=== PATIENT | female | born 1985 | race African-American/Black ===

== ENCOUNTER 2025-05-07 22:51 | Inpatient (IN) | payer OTHER, SELFPAY ==
[2025-05-07 17:55] VITALS: BP 155/110
[2025-05-07 18:33] LABS: Hematocrit 34.4 % (37.0-47.0); Hemoglobin 10.9 g/dL (12.0-16.0); Mean Corp Hgb Conc. 31.7 g/dL (33.0-37.0); Mean Corpuscular Volume 92.0 fL (81.0-99.0); Nucleated Red Blood Cells % 0 %; Platelet Count 346 10^3/uL (130-400); Red Cell Dist. Width 14.6 % (11.5-14.5)
[2025-05-07 18:59] LABS: HCG, Serum Qualitative Screen Negative
[2025-05-07 19:02] LABS: COVID-19 Antigen Negative (Negative)
[2025-05-07 19:06] LABS: ALT (SGPT) 13 U/L (0-35); AST (SGOT) 24 U/L (14-36); Albumin 3.8 g/dl (3.5-5.0); Alkaline Phosphatase 66 U/L (38-126); Blood Urea Nitrogen 42 mg/dl (7-17); Calcium 7.6 mg/dl (8.4-10.2); Carbon Dioxide 15 mmol/L (22-30); Chloride 108 mmol/L (98-107); Glucose 87 mg/dl (70-99); Potassium 4.6 mmol/L (3.5-5.1); Sodium 133 mmol/L (135-145); Total Protein 6.3 g/dl (6.3-8.2); eGFR 7.78
--- NOTE | 2025-05-07 20:17 | ED.GENMED ---
History of Present Illness
<Adela Corey SCALE OPERATOR - Last Filed: 05/08/25 00:35>
General
Chief Complaint: Breathing Problem
Source: patient
Exam Limitations: none
Time Seen by Provider: 05/07/25 20:15
Nursing documentation reviewed up to this point in time: agreed with
History of Present Illness
History of Present Illness:
40 yo female w /o HTN, ESRD on peritoneal dialysis, Lupus,presents with shortness of breath, cough, and persistent diarrhea worse than her usual chronic diarrhea due to her PD, leading to a weight loss of approximately five pounds. The onset of the
worsening diarrhea was reported to have started 04/25 the day before her cough and other symptoms started and occurs anytime she eats or drinks. Had fever 102.4 during the first two days of symptoms, with no recurrence since then. The patient also
experiences chest pain related to coughing, producing minimal sputum. She describes significant shortness of breath as particularly noticeable when walking, leading to severe dizziness to the point where she cannot stand or walk for long. Denies
abdominal pain. States her Creatinine is usually 'in the sixes' and she does PD 6 nights a week, skipping Sundays.
Past History
<Adela Corey, SCALE OPERATOR - Last Filed: 05/08/25 00:35>
Past History
ED Past Medical History: HTN, Renal failure (Peritoneal dialysis), Other (Lupus) and Other
Social History
Tobacco: Non-smoker
Alcohol: None
Personal:
Living: with family
Review of Systems
<Adela Corey, SCALE OPERATOR - Last Filed: 05/08/25 00:35>
Review of Systems
Allergies reviewed?: Yes
All Other Systems: ROS reviewed and negative except as documented in HPI and ROS
Constitutional: Denies fever
EENT: Denies sore throat
Respiratory: Reports cough and trouble breathing
Cardiac: Denies chest pain, diaphoresis, palpitations or syncope
ABD/GI: Reports nausea and diarrhea (loose stools, worse that usual ); Denies abdominal pain or vomiting
: Denies dysuria (does make some urine)
Musculoskeletal: Denies edema
Skin: Reports no symptoms
Neurological: Reports no symptoms
Phy Exam
<Adela Corey, SCALE OPERATOR - Last Filed: 05/08/25 00:35>
Physical Exam
Physical Exam:
GENERAL: No acute distress. A&Ox3.
CONSTITUTIONAL: Afebrile.
EYES: clear, conjunctivae normal
ENMT: moist mucus membranes, Pharynx nl
RESPIRATORY: Regular respirations, nonlabored, lungs clear.
CARDIOVASCULAR: Regular rate and rhythm, no murmurs, no rubs.
GI: Soft, nontender, normal BS
MUSCULOSKELETAL: Moves with ease. Well perfused.
SKIN: Warm, dry, normal
PSYCH: Normal mood and affect. Well kept, interactive and appropriate
NEUROLOGIC: Awake, alert and oriented. No focal neurological deficits
Course
<Adela Corey, SCALE OPERATOR - Last Filed: 05/08/25 00:35>
Orders/Labs/Results
Orders:
Orders
05/07/25 18:01
Electrocardiogram (*1) Urgent
Reason for Study: Shortness of Breath
EKG- Treatment ONCE
Test Result ONCE
CXR2 [CR Chest - 2 Views ] Urgent
Comment:
Reason For Exam: congestion
05/07/25 18:09
COVID-19 Antigen Urgent
Source: Nasal Swab
Complete Blood Count/With Diff Urgent
Comprehensive Metabolic Panel Urgent
HCG, Serum Qualitative Screen Urgent
Influenza A+B Rapid Molecular Urgent
CARA Source: Nasal Swab
Specimen Description:
05/07/25 20:46
D-Dimer Urgent
PTT Urgent
Comment: ADD ON
Acetaminophen [Tylenol] 1,000 mg PO NOW STA
05/07/25 22:25
Heparin 4,500 units IV NOW STA
Heparin Protocol- PTT Orders As Directed
PTT per Heparin protocol: -Obtain CBC and baseline PTT - if not already collected.
-Obtain PTT 6 hours from start of infusion. Then, every 6 hours until 2 consecutive
PTT's are therapeutic. Then, PTT Daily.
-With each rate change, obtain PTT every 6 hours until 2 consecutive PTT's are
therapeutic. Then, PTT Daily.
Notify MD As Directed
Notify physician if: PTT is greater than or equal to 200.
05/07/25 22:28
Admit/Transfer Patient As Directed
Co-Sign Provider:
Level of Care: Inpatient admission
Assign to:: Telemetry
Physician / Group: Tyson Meyer
Diagnosis: Shortness of Breath, suspected PE
Reason for Telemetry: Arrhythmia
Date to Stop Telemetry: 05/10/25
Time to Stop Telemetry: 11:00
Reason for Hospitalization: heparin drip, VQ scan
Expected length of stay greater than two midnights?: Yes
ELOS- Estimated Length of Stay in days: 3
I certify the patient meets the requirements for IP care: Yes
PRN Pain Medication Management As Directed
May give lesser potent ordered pain med per pt: Yes
preference::
Protocol:: Medication orders for pain may be administered in a
manner that supports deferring to patient preference
when the pt is:
- Requesting an ordered lesser potent pain medication.
Least to most potent pain medications are defined
as: acetaminophen < NSAID < tramadol < opioids
(morphine, oxycodone, hydromorphone).
- Requesting a lesser dose of the same medication IF
ORDERED.
- Requesting a less intrusive route of administration
if both routes are prescribed by the provider (PO <
IV).
05/07/25 22:29
Add On- LAB Urgent
Tests Added?: ptt
05/07/25 22:30
Code Status As Directed
Resuscitation Status: Full Code
Heparin 00103 Units/250 ml 25,000 units in 250 ml IV PER PROTOCOL
Weight to be used for heparin protocol in kilograms (kg):: 56
Protocol:: DVT/PE
PTT Goal Range to be used:: PTT 73 to 111 seconds
Order type:: Initial
INITIAL Infusion Dose (UNITS/KG/hr) & then follow protocol:: 18 units/kg/hr
Infusion Dose in UNITS/hr & then follow protocol (UNITS/hr):: 1,000
INFUSION RATE in mL/hr & then follow protocol (mL/hr):: 10
For DVT/PE algorithm, re-bolus for low PTT?: Yes
PTT less than or equal to 64 seconds:: Re-bolus 80 units/kg (max 10,000units). Increase by 200 units/hr
(+ 2mL/hr)
PTT 64.1 to 72.9 seconds:: Re-bolus 40 units/kg (max 5,000 units). Increase by 100 units/hr
(+ 1mL/hr)
PTT 73 to 111 seconds:: Target Range. No change in rate.
PTT 111.1 to 130.9 seconds:: Decrease rate by 100 units/hr (- 1 mL/hr)
PTT 131 to 199.9 seconds:: HOLD for 1 hr. Then decrease by 200 units/hr (- 2mL/hr)
PTT greater than or equal to 200 seconds:: HOLD for 2 hrs & Notify Provider. Then decrease by 200 units/hr
(- 2mL/hr)
Lab follow-up:: Each change, PTT q6h until 2 consecutive are therapeutic. Then
PTT daily.
05/07/25 22:38
Peripheral Venous Lwr Ext Bilat US [US Periph Venous LOWER Ext Louis] Urgent
Comment: patient unable to get CT scan
Reason For Exam: shortness of breath Hx PE
05/07/25 22:42
Peritoneal Dialysis As Directed
Use same dialysate for all exchanges or alternate dialysate?: Same for all exchanges
Deflex Low Ca/Low Mag for all exchanges % Dextrose:: 1.5% Dextrose
Volume in liters per exchange (liters):: 2
Exchange Dwell time in hours:: 4
05/08/25 02:00
Heparin 2,200 units IV PRN PRN
Heparin 4,500 units IV PRN PRN
05/09/25 06:00
Complete Blood Count/No Diff Q2D
Comment: Notify MD if platelet count is <130,000 or decreases by 50% from baseline
05/10/25 11:00
DC Protocol for Telemetry ONCE
05/11/25 06:00
Complete Blood Count/No Diff Q2D
Comment: Notify MD if platelet count is <130,000 or decreases by 50% from baseline
05/13/25 06:00
Complete Blood Count/No Diff Q2D
Comment: Notify MD if platelet count is <130,000 or decreases by 50% from baseline
05/15/25 06:00
Complete Blood Count/No Diff Q2D
Comment: Notify MD if platelet count is <130,000 or decreases by 50% from baseline
05/17/25 06:00
Complete Blood Count/No Diff Q2D
Comment: Notify MD if platelet count is <130,000 or decreases by 50% from baseline
05/19/25 06:00
Complete Blood Count/No Diff Q2D
Comment: Notify MD if platelet count is <130,000 or decreases by 50% from baseline
05/21/25 06:00
Complete Blood Count/No Diff Q2D
Comment: Notify MD if platelet count is <130,000 or decreases by 50% from baseline
05/23/25 06:00
Complete Blood Count/No Diff Q2D
Comment: Notify MD if platelet count is <130,000 or decreases by 50% from baseline
Abnormal Lab Results
05/07/25 05/07/25
18:09 20:46
WBC 3.8 L 10^3/uL
(4.8-10.8)
RBC 3.74 L 10^6/uL
(4.20-5.40)
Hgb 10.9 L g/dL
(12.0-16.0)
Hct 34.4 L %
(37.0-47.0)
MCHC 31.7 L g/dL
(33.0-37.0)
RDW 14.6 H %
(11.5-14.5)
Abs Immat Gran (auto) 0.2 H 10^3/uL
(0-0.05)
Absolute Lymphs (auto) 0.8 L 10^3/uL
(1.2-3.4)
Immature Gran % 4.5 H %
(0-0.5)
D-Dimer 0.84 H ug/mlFEU
(0.00-0.50)
Sodium 133 L mmol/L
(135-145)
Chloride 108 H mmol/L
(98-107)
Carbon Dioxide 15 L mmol/L
(22-30)
BUN 42 H mg/dl
(7-17)
Creatinine 6.5 H* mg/dL
(0.6-1.0)
Calcium 7.6 L mg/dl
(8.4-10.2)
05/07/25 22:25
05/07/25 18:09
Vital Signs
Initial and Last Documented VS:
Initial Vital Signs
Temp Pulse Resp BP Pulse Ox
98.0 F 87 16 155/110 99
05/07/25 17:55 05/07/25 17:55 05/07/25 17:55 05/07/25 17:55 05/07/25 17:55
Last Documented Vital Signs
Temp Pulse Resp BP Pulse Ox
98.0 F 82 15 150/108 100
05/07/25 17:55 05/08/25 00:15 05/08/25 00:15 05/07/25 22:38 05/08/25 00:00
Supervisor Audit Clerks consulted with Physician
Supervisor Audit Clerks consulted with physician?: Yes
Name of Physician Consulted: Sienna
<Yadiel El, DO - Last Filed: 05/07/25 22:37>
Orders/Labs/Results
Orders:
Orders
05/07/25 18:01
Electrocardiogram (*1) Urgent
Reason for Study: Shortness of Breath
EKG- Treatment ONCE
Test Result ONCE
CXR2 [CR Chest - 2 Views ] Urgent
Comment:
Reason For Exam: congestion
05/07/25 18:09
COVID-19 Antigen Urgent
Source: Nasal Swab
Complete Blood Count/With Diff Urgent
Comprehensive Metabolic Panel Urgent
HCG, Serum Qualitative Screen Urgent
Influenza A+B Rapid Molecular Urgent
CARA Source: Nasal Swab
Specimen Description:
05/07/25 20:46
D-Dimer Urgent
PTT Urgent
Comment: ADD ON
Acetaminophen [Tylenol] 1,000 mg PO NOW STA
05/07/25 22:25
Heparin 4,500 units IV NOW STA
Heparin Protocol- PTT Orders As Directed
PTT per Heparin protocol: -Obtain CBC and baseline PTT - if not already collected.
-Obtain PTT 6 hours from start of infusion. Then, every 6 hours until 2 consecutive
PTT's are therapeutic. Then, PTT Daily.
-With each rate change, obtain PTT every 6 hours until 2 consecutive PTT's are
therapeutic. Then, PTT Daily.
Notify MD As Directed
Notify physician if: PTT is greater than or equal to 200.
05/07/25 22:28
Admit/Transfer Patient As Directed
Co-Sign Provider:
Level of Care: Inpatient admission
Assign to:: Telemetry
Physician / Group: Tyson Meyer
Diagnosis: Shortness of Breath, suspected PE
Reason for Telemetry: Arrhythmia
Date to Stop Telemetry: 05/10/25
Time to Stop Telemetry: 11:00
Reason for Hospitalization: heparin drip, VQ scan
Expected length of stay greater than two midnights?: Yes
ELOS- Estimated Length of Stay in days: 3
I certify the patient meets the requirements for IP care: Yes
PRN Pain Medication Management As Directed
May give lesser potent ordered pain med per pt: Yes
preference::
Protocol:: Medication orders for pain may be administered in a
manner that supports deferring to patient preference
when the pt is:
- Requesting an ordered lesser potent pain medication.
Least to most potent pain medications are defined
as: acetaminophen < NSAID < tramadol < opioids
(morphine, oxycodone, hydromorphone).
- Requesting a lesser dose of the same medication IF
ORDERED.
- Requesting a less intrusive route of administration
if both routes are prescribed by the provider (PO <
IV).
05/07/25 22:29
Add On- LAB Urgent
Tests Added?: ptt
05/07/25 22:30
Code Status As Directed
Resuscitation Status: Full Code
Heparin 99762 Units/250 ml 25,000 units in 250 ml IV PER PROTOCOL
Weight to be used for heparin protocol in kilograms (kg):: 56
Protocol:: DVT/PE
PTT Goal Range to be used:: PTT 73 to 111 seconds
Order type:: Initial
INITIAL Infusion Dose (UNITS/KG/hr) & then follow protocol:: 18 units/kg/hr
Infusion Dose in UNITS/hr & then follow protocol (UNITS/hr):: 1,000
INFUSION RATE in mL/hr & then follow protocol (mL/hr):: 10
For DVT/PE algorithm, re-bolus for low PTT?: Yes
PTT less than or equal to 64 seconds:: Re-bolus 80 units/kg (max 10,000units). Increase by 200 units/hr
(+ 2mL/hr)
PTT 64.1 to 72.9 seconds:: Re-bolus 40 units/kg (max 5,000 units). Increase by 100 units/hr
(+ 1mL/hr)
PTT 73 to 111 seconds:: Target Range. No change in rate.
PTT 111.1 to 130.9 seconds:: Decrease rate by 100 units/hr (- 1 mL/hr)
PTT 131 to 199.9 seconds:: HOLD for 1 hr. Then decrease by 200 units/hr (- 2mL/hr)
PTT greater than or equal to 200 seconds:: HOLD for 2 hrs & Notify Provider. Then decrease by 200 units/hr
(- 2mL/hr)
Lab follow-up:: Each change, PTT q6h until 2 consecutive are therapeutic. Then
PTT daily.
05/07/25 22:38
Peripheral Venous Lwr Ext Bilat US [US Periph Venous LOWER Ext Louis] Urgent
Comment: patient unable to get CT scan
Reason For Exam: shortness of breath Hx PE
05/07/25 22:42
Peritoneal Dialysis As Directed
Use same dialysate for all exchanges or alternate dialysate?: Same for all exchanges
Deflex Low Ca/Low Mag for all exchanges % Dextrose:: 1.5% Dextrose
Volume in liters per exchange (liters):: 2
Exchange Dwell time in hours:: 4
05/08/25 02:00
Heparin 2,200 units IV PRN PRN
Heparin 4,500 units IV PRN PRN
05/09/25 06:00
Complete Blood Count/No Diff Q2D
Comment: Notify MD if platelet count is <130,000 or decreases by 50% from baseline
05/10/25 11:00
DC Protocol for Telemetry ONCE
05/11/25 06:00
Complete Blood Count/No Diff Q2D
Comment: Notify MD if platelet count is <130,000 or decreases by 50% from baseline
05/13/25 06:00
Complete Blood Count/No Diff Q2D
Comment: Notify MD if platelet count is <130,000 or decreases by 50% from baseline
05/15/25 06:00
Complete Blood Count/No Diff Q2D
Comment: Notify MD if platelet count is <130,000 or decreases by 50% from baseline
05/17/25 06:00
Complete Blood Count/No Diff Q2D
Comment: Notify MD if platelet count is <130,000 or decreases by 50% from baseline
05/19/25 06:00
Complete Blood Count/No Diff Q2D
Comment: Notify MD if platelet count is <130,000 or decreases by 50% from baseline
05/21/25 06:00
Complete Blood Count/No Diff Q2D
Comment: Notify MD if platelet count is <130,000 or decreases by 50% from baseline
05/23/25 06:00
Complete Blood Count/No Diff Q2D
Comment: Notify MD if platelet count is <130,000 or decreases by 50% from baseline
Abnormal Lab Results
05/07/25 05/07/25
18:09 20:46
WBC 3.8 L 10^3/uL
(4.8-10.8)
RBC 3.74 L 10^6/uL
(4.20-5.40)
Hgb 10.9 L g/dL
(12.0-16.0)
Hct 34.4 L %
(37.0-47.0)
MCHC 31.7 L g/dL
(33.0-37.0)
RDW 14.6 H %
(11.5-14.5)
Abs Immat Gran (auto) 0.2 H 10^3/uL
(0-0.05)
Absolute Lymphs (auto) 0.8 L 10^3/uL
(1.2-3.4)
Immature Gran % 4.5 H %
(0-0.5)
D-Dimer 0.84 H ug/mlFEU
(0.00-0.50)
Sodium 133 L mmol/L
(135-145)
Chloride 108 H mmol/L
(98-107)
Carbon Dioxide 15 L mmol/L
(22-30)
BUN 42 H mg/dl
(7-17)
Creatinine 6.5 H* mg/dL
(0.6-1.0)
Calcium 7.6 L mg/dl
(8.4-10.2)
05/07/25 22:25
05/07/25 18:09
Vital Signs
Initial and Last Documented VS:
Initial Vital Signs
Temp Pulse Resp BP Pulse Ox
98.0 F 87 16 155/110 99
05/07/25 17:55 05/07/25 17:55 05/07/25 17:55 05/07/25 17:55 05/07/25 17:55
Last Documented Vital Signs
Temp Pulse Resp BP Pulse Ox
98.0 F 82 15 150/108 100
05/07/25 17:55 05/08/25 00:15 05/08/25 00:15 05/07/25 22:38 05/08/25 00:00
<Adela Corey, SCALE OPERATOR - Last Filed: 05/08/25 00:35>
MDM/Problems Addressed
Differential Diagnosis Includes:
Pneumonia, PE, bronchitis, viral URI, dehydration
MDM/Problems Addressed:
40 yo female w /o HTN, Lupus nephritis, ESRD on peritoneal dialysis, presents with shortness of breath, cough, and persistent diarrhea worse than her usual chronic diarrhea due to her PD, leading to a weight loss of approximately five pounds. The
onset of the worsening diarrhea was reported to have started 04/25 the day before her cough and other symptoms started and occurs anytime she eats or drinks. Had fever 102.4 during the first two days of symptoms, with no recurrence since then. The
patient also experiences chest pain related to coughing, producing minimal sputum. She describes significant shortness of breath as particularly noticeable when walking, leading to severe dizziness to the point where she cannot stand or walk for
long. Denies abdominal pain. States her Creatinine is usually 'in the sixes' and she does PD 6 nights a week, skipping Sundays.
She has taken Nyquil, Tylenol cold and flu, Theraflu with some short term relief.
Afebrile, NAD
Road test, maintained Pulse ox of 95% RA but very breathless RR 35 HR 90's
CBC unremarkable
CMP: BUN/crea 426.5 (her baseline) Reviewed labs on her phone from 04/20: BUN creat: 35/6.33
HCG neg
Covid neg
Influenza neg
CXR read by Dr. El: NAD
9:30 p.m.
Mild elevation in dimer 0.[address] El
Plan: admit needs VQ scan
Hospitalist requesting contacting Nephrology to see if we can do PD tonight then CT PE study.
Dr. Macias consulted and recommends admit for VQ scan as PD won't clear contrast.
Hospitalist in to admit
Chronic conditions affecting care: Kidney disease and Other (Lupus)
<Adela Corey, SCALE OPERATOR - Last Filed: 05/08/25 00:35>
*Pulse Oximetry
SaO2: 99
Oxygen Mode of Delivery: Room air
Patient hypoxic: no
*Critical Care Note
Total Time (30-74mins, 75-104mins- exclusive of procedures): Not Applicable
ED Attending Note
<Adela Corey SCALE OPERATOR - Last Filed: 05/08/25 00:35>
-
Portions of this chart may have been created with voice recognition software.� Occasional wrong word or��sound alike� substitutions may have occurred due to the inherent limitations of voice recognition software.
<Yadiel El, - Last Filed: 05/07/25 22:37>
ED Attending Note
Patient seen and examined by attending physician: Yes
ED Attending Note:
I reviewed and agree with history and treatment plan by Lyla Corey DNP. My exam revealed 40-year-old female in no acute distress, but short of breath with any exertion. History of PE. She does state this feels different. No signs of pneumonia on
chest x-ray. Will admit to hospitalist for workup for possible PE, hospitalist to start patient on heparin.
Discharge Plan
Departure
Patient Disposition: Admit
Date of Disposition: 05/07/25
Time of Disposition: 21:30
Admit to: Med/Surg
Presentation/result/management discussed w/ accepting MD/DO: Hospitalist
Condition: Fair
Discharge Problem:
Dyspnea on exertion
Interventions
Interventions:
*Risk Screen - Suicide Last Done: 05/07/25 17:49
*General Assessment Last Done: 05/07/25 17:55
*Neglect/Abuse Screening Last Done: 05/07/25 17:55
*ED COVID-19 Vaccine History Last Done: 05/07/25 17:55
*ED Influenza Vaccine History Last Done: 05/07/25 17:55
[facility] Fall Risk Assessment Tool Last Done: 05/07/25 20:21
ED- Cardiac Assessment Last Done: 05/07/25 20:25
ED- Pulmonary Assessment Last Done: 05/07/25 20:25
[2025-05-07 20:26] VITALS: BP 150/108
[2025-05-07] MEDS: TYLENOL 1000 MG PO (20:46)
[2025-05-07 21:11] LABS: D-Dimer 0.84 ug/mlFEU (0.00-0.50)
--- NOTE | 2025-05-07 21:52 | HPS.HSE ---
Addendum entered and electronically signed by Tyson Meyer MD 05/07/25 23:27:
Acute shortness of breath with known pulmonary history
Was diagnosed with provoked PE most recent November and was on anticoagulation and was taken off
Check VQ scan
Will empirically heparinize
2D echo
Consult hematology
ESRD on peritoneal dialysis
Consult nephrology
Hypertension
Continue antihypertensives
Original Note:
Family Physician
-
Family Physician: Savi Marquez
Chief Complaint
-
Shortness of Breath
History of Present Illness
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 Patient reports initial onset of symptoms about 10 days ago. She reports initially she developed
diarrhea but subsequently has developed cough and shortness of breath. She notes she did have a fever for a two days at the onset of symptoms but notes fevers at this point have resolved. She reports pleuritic chest pain associated with minimally
productive cough. She reports significant shortness of breath, particularly dyspnea on exertion which leads to severe dizziness. Patient reports prior history of DVT in 2012 while taking oral contraceptive, and a PE in August 2024 related to a
hospitalization for pneumonia. Patient reports she completed a 3 month coarse of Eliquis and after discussion with her simulation specialist decision was made to stop anticoagulation as both episodes were felt to be provoked instead of transitioning to
warfarin which would be required for kidney transplant listing.
Medical History
Past Medical History
Past Medical History: Reports Other
Additional Past Medical History:
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
Pulmonary Embolism - August 2024
Hypertension
Past Surgical History: Reports Other
Additional Past Surgical History:
PD Catheter
Social History
Tobacco: Non-smoker
Personal:
Living: With Family
Family History
Family History: Not pertinent
Allergies / Home Medications
Allergies reflects when Allergies were last updated in [employer].
Home Medications with original date entered in [employer]
Allergy/Medication List:
Allergies
Allergy/AdvReac Type Severity Reaction Status Date / Time
infliximab (From Remicade) Allergy Anaphylaxis Verified 05/07/25 18:00
Penicillins Allergy Hives Verified 05/07/25 18:00
Home Medications
bumetanide 2 mg tablet 2 mg PO TID 05/07/25
carvedilol 6.25 mg tablet (Coreg) 6.25 mg PO BID 05/07/25
cholecalciferol (vitamin D3) 25 mcg (1,000 unit) tablet (Vitamin D3) 50 mcg PO DAILY 05/07/25
mycophenolate sodium 360 mg tablet,delayed release 360 mg PO BID 05/07/25
nifedipine 30 mg tablet,extended release 30 mg PO QPM 05/07/25
nifedipine 90 mg tablet,extended release 90 mg PO DAILY 05/07/25
potassium chloride 10 mEq tablet,extended release 10 meq PO DAILY 05/07/25
prednisone 5 mg tablet 5 mg PO DAILY 05/07/25
valsartan 80 mg tablet 80 mg PO HS 05/07/25
vitamin B complex-vitamin C-folic acid 0.8 mg tablet (Opal-Greg) 1 tab PO DAILY 05/07/25
Review of Systems
-
A 12 point ROS was completed and negative except as noted: Yes
Constitutional: Reports Fever (Resolved)
Respiratory: Reports See HPI
Abdomen/GI: Denies Abdominal Pain
Physical Exam
Vital Signs
Vital Signs
Temp Pulse Resp BP Pulse Ox
98.0 F 80 15 150/108 98
05/07/25 17:55 05/07/25 20:26 05/07/25 20:26 05/07/25 20:26 05/07/25 20:27
Physical Exam
General: Comfortable and Conversant
HEENT: Anicteric and Moist mucous membranes
Respiratory: Clear and Non Labored Respirations
Cardiac: S1/S2 and Regular Rhythm
GI: Soft and Non Tender
Musculoskeletal: No Clubbing, No Cyanosis and No Edema
Skin: Warm and Dry
Neuro: Awake, Alert, Oriented and Nonfocal/grossly intact
Psych: Calm
Laboratory Results
-
05/07/25 18:09
05/07/25 18:09
Laboratory Results
Total Bilirubin 0.4 mg/dl (0.2-1.3) 05/07/25 18:09
AST 24 U/L (14-36) 05/07/25 18:09
ALT 13 U/L (0-35) 05/07/25 18:09
Alkaline Phosphatase 66 U/L (38-126) 05/07/25 18:09
Lung Perfusion Scan - August 2024 @ [facility]
Perfusion images demonstrate a medium-sized wedge-shaped perfusion defect extending to the periphery in the left upper lobe, most consistent with acute pulmonary embolus. There is otherwise mildly heterogeneous tracer distribution throughout the
remainder of both lungs.
Data Reviewed
-
Diagnostic Radiology: Image Personally Visualized and interpreted (CXR without evidence of pneumonia or volume overload)
Lab Data: Labs Reviewed by me
Old Records: Reviewed
Impression/Plan
-
Shortness of Breath / Dyspnea on Exertion, high clinical concern for Pulmonary Embolism given her prior history
-Patient is unable to have CT scan due to ESRD on PD
-Check peripheral vacular ultrasound to evaluated for possible DVT
-Check echocardiogram for evidence of right heart strain that may indicate new pulmonary embolism as prior Echo from August did not demonstrate right heart strain
-Check VQ scan
-Lung Perfusion Scan from August with medium sized wedge shaped perfusion defect extending to the periphery in the left upper lobe
-Start heparin drip given high clinical concern
-Consult Hematology
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
-Consult Nephrology
-Continue Bumex for volume management
-Continue mycophenolate and prednisone
Benign Hypertension
-Continue Coreg and Nifedipine
Code Status: Full Code
--- NOTE | 2025-05-07 21:54 | EDRN ---
WAGNER Arita updated patient, she will be admitted to the hospital
[2025-05-07 22:37] LABS: APTT 29.7 Sec (23.4-35.0)
[2025-05-07] MEDS: HEPARIN 4500 UNITS IV (22:37)
[2025-05-07 22:38] VITALS: BP 150/108
[2025-05-07] MEDS: HEPARIN 25000 UNITS/250 ML IV (22:38)
[2025-05-08] VITALS (17 sets, daily range): BP systolic 141–172; BP diastolic 104–125; BMI 19.0
[2025-05-08] MEDS: DIOVAN 80 MG PO ×2 (02:22→22:58)
[2025-05-08] MEDS: TYLENOL 1000 MG PO (02:33)
[2025-05-08] MEDS: COLACE 100 MG PO ×3 (02:33→20:42)
--- NOTE | 2025-05-08 02:47 | PTCARENOTE ---
Verbal report received from RENITA Vann. Pt arrived to floor via stretcher. Pt aaox3 and ambulated to the bed with a steady gait. NSR on the monitor. SpO2 100% on RA. Heparin gtt infusing at 1000u/hr. Next PTT at 0430. PD dialysate currently in the
warmer. PD dressing C/D/I. Pt's bp 162/111, hr 66. Pt stated she did not take her blood pressure medications this evening. Pt also c/o 6/10 abd pain and requested 1000 mg of Tylenol as this is the medication/dose she takes as needed for abdominal
pain. She also requested Colace as well which she takes prior to PD to help with discomfort. GLASS TUBE BENDER made aware and medications ordered and administered (see MAR). VS and assessment as documented. Admission complete. Pt is currently resting in bed with
call jimenez in reach.
[2025-05-08 05:25] LABS: Hematocrit 30.7 % (37.0-47.0); Hemoglobin 9.8 g/dL (12.0-16.0); Mean Corp Hgb Conc. 31.9 g/dL (33.0-37.0); Mean Corpuscular Volume 91.6 fL (81.0-99.0); Platelet Count 312 10^3/uL (130-400); Red Cell Dist. Width 14.3 % (11.5-14.5)
[2025-05-08 05:59] LABS: APTT > 200 Sec (23.4-35.0)
[2025-05-08 06:06] LABS: Blood Urea Nitrogen 49 mg/dl (7-17); Calcium 8.0 mg/dl (8.4-10.2); Carbon Dioxide 14 mmol/L (22-30); Chloride 113 mmol/L (98-107); Estimated Creatinine Clearance 10 ml/min; Glucose 80 mg/dl (70-99); Potassium 4.0 mmol/L (3.5-5.1); Sodium 137 mmol/L (135-145); eGFR 7.92
[2025-05-08] MEDS: APRESOLINE 5 MG IV ×3 (06:36→23:56)
--- NOTE | 2025-05-08 07:48 | PTCARENOTE ---
Addendum entered by Maira Ruiz RN 05/09/25 02:03:
0525 Pt c/o 7/10 pain during PD and PLAYERS ASSISTANT notified. rx received for oxycodone. Pt refused and PLAYERS ASSISTANT made aware
Original Note:
0115
Pt bp 162/111, hr 66. Rx recieved for coreg and valsartan, hr dropped to 50s. PLAYERS ASSISTANT notified, coreg held and valsartan administered. Pt requested colace for prior to PD.
0225
Pt c/o 6/10 abdominal pain. Rx received for Tylenol per pt request.
0525
Pt c/o 7/10 pain during PD and PLAYERS ASSISTANT notified. No new orders
0600
PTT >200 PLAYERS ASSISTANT notified and heparin gtt on hold
BP 172/114, hr 54. Rx received for IV Hydralazine.
CO2 14 this am and PLAYERS ASSISTANT and on-call hydraulic and plumbing installer made aware
--- NOTE | 2025-05-08 08:07 | W.CON.NEPH ---
Consultation
-
Date/Time Consultation Requested: 05/07/2025 10:00 PM
Date/Time Consultation Performed: 05/08/2025 8:00 AM
Requesting Provider: Dr. Meyer
Performing Provider: Dr. Macias
Reason for Consultation: End-stage renal disease
Medical History
-
Chief Complaint: End-stage renal disease
History of Present Illness:
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 Patient reports initial onset of symptoms about 10 days ago. She reports initially she developed
diarrhea but subsequently has developed cough and shortness of breath. She notes she did have a fever for a two days at the onset of symptoms but notes fevers at this point have resolved. She reports pleuritic chest pain associated with minimally
productive cough. She reports significant shortness of breath, particularly dyspnea on exertion which leads to severe dizziness. Patient reports prior history of DVT in 2012 while taking oral contraceptive, and a PE in August 2024 related to a
hospitalization for pneumonia. Patient reports she completed a 3 month coarse of Eliquis and after discussion with her insecticide maker decision was made to stop anticoagulation as both episodes were felt to be provoked instead of transitioning to
warfarin which would be required for kidney transplant listing. Nephrology was consulted for end-stage renal disease management and metabolic acidosis. Patient's admission was suspected for recurrence of pulmonary embolism.
Past Medical History
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
Pulmonary Embolism - August 2024
Hypertension
Social History
Tobacco: Non-Smoker
Personal:
Allergies / Home Medications
Allergy/AdvReac Type Severity Reaction Status Date / Time
infliximab (From Remicade) Allergy Anaphylaxis Verified 05/07/25 18:00
Penicillins Allergy Hives Verified 05/07/25 18:00
�Medication �Instructions �Recorded �Confirmed �Type
bumetanide 2 mg tablet 2 mg PO TID 05/07/25 05/07/25 History
carvedilol 6.25 mg tablet (Coreg) 6.25 mg PO BID 05/07/25 05/07/25 History
cholecalciferol (vitamin D3) 25 50 mcg PO DAILY 05/07/25 05/07/25 History
mcg (1,000 unit) tablet (Vitamin
D3)
mycophenolate sodium 360 mg 360 mg PO BID 05/07/25 05/07/25 History
tablet,delayed release
nifedipine 30 mg tablet,extended 30 mg PO QPM 05/07/25 05/08/25 History
release
nifedipine 90 mg tablet,extended 90 mg PO DAILY 05/07/25 05/08/25 History
release
potassium chloride 10 mEq 10 meq PO DAILY 05/07/25 05/07/25 History
tablet,extended release
prednisone 5 mg tablet 5 mg PO DAILY 05/07/25 05/07/25 History
valsartan 80 mg tablet 80 mg PO HS 05/07/25 05/07/25 History
vitamin B complex-vitamin C-folic 1 tab PO DAILY 05/07/25 05/07/25 History
acid 0.8 mg tablet (Opal-Greg)
nifedipine 30 mg tablet,extended 30 mg PO DAILY 05/08/25 05/08/25 History
release
Review of Systems
-
History Source: Patient
All other systems: Negative unless noted
Constitutional: Weight Loss
EENT: No Symptoms
Respiratory: Cough and Trouble Breathing
Cardiac: No Symptoms
Abdomen/GI: Abdominal Pain and Diarrhea
: Other (still makes urine)
Musculoskeletal: No Symptoms
Skin: No Symptoms
Neurological: No Symptoms
Endocrine: No Symptoms
Hematologic/Lymphatic: No Symptoms
Physical Exam
Vital Signs
Vital Signs
Temp Pulse Resp BP Pulse Ox
97.7 F 107 20 147/109 100
05/08/25 08:03 05/08/25 08:00 05/08/25 05:43 05/08/25 07:29 05/08/25 08:00
Lab Results
05/08/25 04:44
05/08/25 04:44
WBC 3.9 10^3/uL (4.8-10.8) L 05/08/25 04:44
RBC 3.35 10^6/uL (4.20-5.40) L 05/08/25 04:44
Hgb 9.8 g/dL (12.0-16.0) L 05/08/25 04:44
Hct 30.7 % (37.0-47.0) L 05/08/25 04:44
Plt Count 312 10^3/uL (130-400) 05/08/25 04:44
Sodium 137 mmol/L (135-145) 05/08/25 04:44
Potassium 4.0 mmol/L (3.5-5.1) 05/08/25 04:44
Chloride 113 mmol/L (98-107) H 05/08/25 04:44
Carbon Dioxide 14 mmol/L (22-30) L* 05/08/25 04:44
BUN 49 mg/dl (7-17) H 05/08/25 04:44
Creatinine 6.4 mg/dL (0.6-1.0) H* 05/08/25 04:44
eGFR 7.92 05/08/25 04:44
Glucose 80 mg/dl (70-99) 05/08/25 04:44
Calcium 8.0 mg/dl (8.4-10.2) L 05/08/25 04:44
Albumin 3.8 g/dl (3.5-5.0) 05/07/25 18:09
Physical Exam
General: AOx3, Nontoxic , NAD
HEENT: PERRL, EOMI, Anicteric, Conjunctivae Clear, Ear/Nose Intact, Hearing Normal, Oropharynx Clear/Moist, Dentition Intact, Facial Symmetry, Neck Supple, Neck: Trachea Midline, No JVD and No Thyromegaly, no Bruits
Respiratory: Clear to auscultation bilaterally with normal lung exersion
Cardiac: S1/S2 and Regular Rate/Rhythm
Breast: Deferred by me
Abdomen: Soft, but tender, Normal Bowel Sounds and No Hepatosplenomegaly,PD catheter
Rectal: Deferred by Provider
Genito-urinary: No Costovertebral Tenderness
Extremities: No Clubbing, No Cyanosis and No Edema
Skin: No Rash or open lesions
Neuro: Nonfocal/Grossly Intact, CN II-XII (Intact) and Strength (Musculoskeletal exam 5 out of 5 both upper and lower extremities)
Hematologic/Lymphatic: No Cervical Lymphadenopathy, No Submandibular Lymphadenopathy and No Supraclavicular Lymphadenopathy
Psych: Mood/afflect pleasant, Insight/judgement good and Appropriate
Vascular: plus 2 pedal and radial pulses
Data Reviewed
-
Radiology: Image Personally Visualized and interpreted (Reviewed by myself no evidence of congestive heart failure or pneumonic process)
Labs: Labs Reviewed by me (BMP CBC)
Assessment/Plan
-
Impression:
ESRD (Lupus nephritis)/PD
Presentation with shortness of breath dyspnea on exertion
Hypertension
History of PE (patient had this last August and was on Eliquis for 3 months)
Anemia
Metabolic acidosis
Plan:
PD orders were provided, 2L q4hr exchange (May need to decrease interval to every 5 hours as we do not wish to potentiate further volume depletion)
Check VBG to help evaluate metabolic acidosis
Maintains on prednisone and mycophenolate in setting of lupus nephritis
Will check PD fluid for culture and Gram stain and cell count given ongoing diarrhea and abdominal pain
Likely for VQ scan and echo today to evaluate for possible acute PE
Currently heparinized
[2025-05-08] MEDS: MYFORTIC DELAYED REL. 360 MG PO ×2 (08:16→20:43)
[2025-05-08] MEDS: BUMEX PO ×2 (08:16→08:30)
[2025-05-08] MEDS: NEPHROCAP 1 CAPSULE PO (08:17)
[2025-05-08] MEDS: DELTASONE 5 MG PO (08:17)
[2025-05-08] MEDS: KCL 10 MEQ PO (08:17)
[2025-05-08] MEDS: COREG 6.25 MG PO ×2 (08:19→20:43)
[2025-05-08] MEDS: TYLENOL 650 MG PO ×3 (09:07→20:42)
[2025-05-08 09:25] LABS: Venous Blood Gas B.E. -8.9 mmol/L (-4 to +4); Venous Blood Gas O2 Sat % 99.3 %
--- NOTE | 2025-05-08 10:40 | CON.ONC ---
Addendum entered and electronically signed by James Major MD 05/08/25 13:11:
Addendum: While in the past several years, this hospital has done perfusion only studies, they are once again doing both perfusion and ventilation studies for pulmonary embolus. Therefore, the study is more believable than a perfusion study alone.
I am told, but do not know for a fact, that the perfusion and ventilation study done here was similar to 1 done at the [facility]. Will await all of the dust to clear.
Original Note:
Consultation
-
Date Consultation Requested: 05/08/25
Date Consultation Performed: 06/06/25
Requesting Provider: Jonathan
Performing Provider: Moriah
Reason for Consultation: possible PE
Impression
Impression
History of thromboembolic disease, concern for possible acute PE, perfusion scan pending
ESRD due to lupus nephritis, on peritoneal dialysis, plans for kidney transplant
Plan
Plan
Await results of perfusion scan. Please note, this is not a VQ scan, it is only a Q scan, perfusion only and as such is more likely to yield false positives. She may require a CT scan with IV contrast if okay with renal. I have sent off studies
to exclude phospholipid antibody syndrome, for which she has an increased risk given her lupus. Agree with plans for empiric heparin for the time being.
Patient History
History of Present Illness
This 40-year-old woman was admitted with breathing difficulties. She has not been feeling well since . She has experienced about 1 week of mild to moderate diarrhea. She noted increased shortness of breath over the last several days,
only when she was walking or exerting herself. She has some mild pleuritic pain that is nonlocalized. She was running a fever a little over 1 week ago. She has been admitted and has undergone a venous Doppler which shows no evidence of deep vein
thrombosis. Her D-dimer is elevated at 0.84. A perfusion scan is pending.
Her history is remarkable for a deep vein thrombosis over 10 years ago when she was taking an oral contraceptive. in August of this year she suffered a pulmonary embolus shortly after being discharged from the hospital for pneumonia. She took
Eliquis for about 3 months, but was advised by her personal financial counselor that [facility] that since both thromboembolic events were seemingly provoked, she could come off the Eliquis. In addition, she would like to remain off Eliquis as she
is hoping to get back on the transplant list.
Past-Medical/Surgical History
Remarkable essentially for the lupus nephritis.
Social history is noncontributory.
Family history is remarkable for some sort of blood problem in her mother, she is vague about details.
Patient Medication
�Medication �Instructions �Recorded �Confirmed �Last Taken �Type
bumetanide 2 mg tablet 2 mg PO TID Fluid 05/07/25 05/07/25 05/07/25 History
Retention/Swelling
carvedilol 6.25 mg tablet (Coreg) 6.25 mg PO BID Blood Pressure 05/07/25 05/07/25 05/07/25 History
cholecalciferol (vitamin D3) 25 50 mcg PO DAILY Supplement 05/07/25 05/07/25 05/07/25 History
mcg (1,000 unit) tablet (Vitamin
D3)
mycophenolate sodium 360 mg 360 mg PO BID Lupus 05/07/25 05/07/25 05/07/25 History
tablet,delayed release
nifedipine 30 mg tablet,extended 30 mg PO QPM Blood Pressure 05/07/25 05/08/25 03/31/25 History
release
nifedipine 90 mg tablet,extended 90 mg PO DAILY Blood Pressure 05/07/25 05/08/25 04/21/25 History
release
potassium chloride 10 mEq 10 meq PO DAILY Supplement 05/07/25 05/07/25 05/07/25 History
tablet,extended release
prednisone 5 mg tablet 5 mg PO DAILY Lupus 05/07/25 05/07/25 05/07/25 History
valsartan 80 mg tablet 80 mg PO HS Blood Pressure 05/07/25 05/07/25 05/06/25 History
vitamin B complex-vitamin C-folic 1 tab PO DAILY Supplement 05/07/25 05/07/25 05/07/25 History
acid 0.8 mg tablet (Opal-Greg)
nifedipine 30 mg tablet,extended 30 mg PO DAILY Blood Pressure 05/08/25 05/08/25 05/07/25 09:30 History
release
Active Medications
Generic Name Dose Route Start Last Admin
Trade Name Freq PRN Reason Stop Dose Admin
Acetaminophen 650 mg 05/08/25 09:00 05/08/25 09:07
Acetaminophen 325 Mg Tablet PO 06/05/25 08:59 650 mg
Q4HPRN PRN Administration
mild pain/ fever>100.5F
Bumetanide 2 mg 05/08/25 08:00 05/08/25 08:30
Bumetanide 1 Mg Tablet PO 06/05/25 07:59 Not Given
TID JETT
Carvedilol 6.25 mg 05/08/25 08:00 05/08/25 08:19
Carvedilol 6.25 Mg Tablet PO 06/05/25 07:59 6.25 mg
BID JETT Administration
Docusate Sodium 100 mg 05/08/25 02:17 05/08/25 02:33
Docusate Sodium 100 Mg Capsule PO 06/05/25 02:16 100 mg
BIDPRN PRN Administration
constipation
Heparin Sodium 4,500 units 05/08/25 02:00
Heparin 80 Units/Kg Iv Rebolus IV 06/05/25 01:59
PRN PRN
PTT < OR = 64 seconds
Heparin Sodium 2,200 units 05/08/25 02:00
Heparin 40 Units/Kg Iv Rebolus IV 06/05/25 01:59
PRN PRN
PTT = 64.1 to 72.9 seconds
Heparin Sodium 25,000 units in 250 mls @ 0 mls/hr 05/07/25 22:30 05/07/25 22:38
Heparin 75699 Units/250 Ml IV 250 mls
PER PROTOCOL JETT Administration
Protocol
Per Protocol
Mycophenolate Sodium 360 mg 05/08/25 08:00 05/08/25 08:16
Mycophenolic Acid [address] Tablet (Non Form) PO 360 mg
BID JETT Administration
Nifedipine 30 mg 05/08/25 18:00
Nifedipine 30 Mg Extended Release Tablet PO 06/05/25 17:59
QPM JETT
Potassium Chloride 10 meq 05/08/25 08:00 05/08/25 08:17
Potassium Chloride 10 Meq Extended Release Tablet PO 06/05/25 07:59 10 meq
DAILY JETT Administration
Prednisone 5 mg 05/08/25 08:00 05/08/25 08:17
Prednisone 5 Mg Tablet PO 06/05/25 07:59 5 mg
DAILY JETT Administration
Sodium Chloride 0 flush 05/08/25 03:00
Sodium Chloride 0.9% (Flush) Syringe IV 06/05/25 02:59
PER PROTOCOL JETT
Valsartan 80 mg 05/08/25 22:00
Valsartan 80 Mg Tablet PO 06/05/25 21:59
HS JETT
Vitamin B Complex/Vit C/Folic Acid 1 capsule 05/08/25 08:00 05/08/25 08:17
Renal Cap (Nephrocap) Capsule PO 06/05/25 07:59 1 capsule
DAILY JETT Administration
Review of Systems
-
All Other Systems: Reviewed and Negative
Physical Exam
-
Physical examination shows the patient to be in no acute distress.
HEENT exam is unremarkable.
There are no palpable nodes.
Chest is clear.
The heart is regular with no murmur or gallop.
The abdomen is soft and mildly tender with a peritoneal dialysis catheter in place..
Extremities are unremarkable.
Neurologic is grossly intact.
Labs
Lab Results
WBC 3.9 10^3/uL (4.8-10.8) L 05/08/25 04:44
RBC 3.35 10^6/uL (4.20-5.40) L 05/08/25 04:44
Hgb 9.8 g/dL (12.0-16.0) L 05/08/25 04:44
Hct 30.7 % (37.0-47.0) L 05/08/25 04:44
MCV 91.6 fL (81.0-99.0) 05/08/25 04:44
MCH 29.3 pg (27.0-31.0) 12 04:44
MCHC 31.9 g/dL (33.0-37.0) L 05/08/25 04:44
RDW 14.3 % (11.5-14.5) 05/08/25 04:44
Plt Count 312 10^3/uL (130-400) 05/08/25 04:44
MPV 9.9 fL (7.4-10.4) 05/08/25 04:44
Abs Immat Gran (auto) 0.2 10^3/uL (0-0.05) H 05/07/25 18:09
Absolute Neuts (auto) 2.5 10^3/uL (1.4-6.5) 05/07/25 18:09
Absolute Lymphs (auto) 0.8 10^3/uL (1.2-3.4) L 05/07/25 18:09
Absolute Monos (auto) 0.3 10^3/uL (0.1-0.6) 05/07/25 18:09
Absolute Eos (auto) 0.0 10^3/uL (0-0.7) 05/07/25 18:09
Absolute Basos (auto) 0.0 10^3/uL (0-0.2) 05/07/25 18:09
Immature Gran % 4.5 % (0-0.5) H 05/07/25 18:09
Neutrophils % 66.4 % (42.2-75.2) 05/07/25 18:09
Lymphocytes % 21.2 % (20.5-51.1) 05/07/25 18:09
Monocytes % 6.6 % (1.7-9.3) 05/07/25 18:09
Eosinophils % 0.5 % (0-6) 05/07/25 18:09
Basophils % 0.8 % (0-2) 05/07/25 18:09
Creatinine 6.4 mg/dL (0.6-1.0) H* 05/08/25 04:44
Vital Signs
Vital Signs
Temp Pulse Resp BP Pulse Ox
97.7 F 118 20 156/115 100
05/08/25 08:03 05/08/25 08:19 05/08/25 05:43 05/08/25 08:19 05/08/25 08:00
[2025-05-08 11:15] LABS: Body Fluid Second Tech ASW
--- NOTE | 2025-05-08 12:49 | PTCARENOTE ---
Patient AAOx3. Heparin infusing per protocol. VSS. C/o GILL and abdominal tenderness to palpation. Patient also c/o cramping during PD with draining as well as filling, patient states this is a normal symptom for her. Patient currently getting VQ
scan and echo done. Patient making needs known. Will closely monitor.
--- NOTE | 2025-05-08 14:06 | CM ---
Patient out of room in IMU earlier and returned to room. CM spoke with her and she states that she uses the [facility] in [place] and uses at home PD. Patient PCP is Dr. Ham and the [facility] on [facility]. Patient lives with her in a 2
story home. Patient did not have history of DME or past need for VN. CM will continue to follow for discharge planning needs.
Plan; home with PD pending medical treatment plan.
[2025-05-08 15:44] LABS: APTT > 200 Sec (23.4-35.0)
--- NOTE | 2025-05-08 16:01 | W.PN.HOSP.TC ---
Today's Communication/Plan
-
see plan above
Assessment / Plan
Assessment / Plan
Shortness of Breath / Dyspnea on Exertion
VQ scan concerning for left upper lobe PE with mismatch.
History of PE August 2024 status post 3 months of DOAC
-Patient is unable to have CT scan due to ESRD on PD
- Continue with IV heparin. Hematology following.
-Check echocardiogram for right-sided pressures
-Consult pulmonary to eval for CTEPH
-Lung Perfusion Scan from August with medium sized wedge shaped perfusion defect extending to the periphery in the left upper lobe
- O2 ok
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
-Consulted Nephrology
-Continue Bumex for volume management
-Continue mycophenolate and prednisone
- CW PD
Benign Hypertension
Not under goal
-Continue Coreg , Valsartan but increase dose of Nifedipine
- With higher dose of nifedipine of 90 mg she was feeling dizzy so antihypertensives were changed in March by her primary call center support representative
Code Status: Full Code
Discussed with nephrology
Anticipated Discharge: > 48 hours
Subjective/Interval History
-
Date of Service: May 08, 2025
Patient currently getting a PD and she is getting some cramps in her abdomen. She has had issues with the cramps in abdomen with PD in the past which improved.
Sitting at the edge of the bed without any respiratory distress. She denies any chest pain. She had complete symptom of shortness of breath mostly with exertion.
No fever or chills.
No nausea vomiting.
Objective Data
-
Labs:
Laboratory Results
05/08/25 05/08/25
04:44 14:49
WBC 3.9 L
Hgb 9.8 L
Hct 30.7 L
Plt Count 312
APTT > 200 H* > 200 H*
Sodium 137
Potassium 4.0
Chloride 113 H
Carbon Dioxide 14 L*
BUN 49 H
Creatinine 6.4 H*
Glucose 80
Calcium 8.0 L
Vital Signs:
Vital Signs
Temp Pulse Resp BP Pulse Ox
97.8 F 91 20 160/117 98
05/08/25 11:58 05/08/25 14:51 05/08/25 05:43 05/08/25 14:51 05/08/25 10:10
I&O
05/07/25 05/08/25 05/09/25
06:59 06:59 06:59
Intake Total 240 / 240 440 / 440
Balance 240 / 240 440 / 440
Physical Exam
-
General: Comfortable
Respiratory: Non Labored Respirations; Negative Accessory Resp Muscle Use
Cardiac: Regular Rhythm, S1/S2 and Tachycardic
GI: Other (PD ongoing)
Neuro: AO x 3
Psych: Calm; Negative Confused
Data Reviewed
-
Labs: Labs Reviewed by me
[2025-05-08] MEDS: BUMEX 2 MG PO ×2 (16:44→22:57)
--- NOTE | 2025-05-08 22:05 | PTCARENOTE ---
Patient requesting to empty and then wait an hour prior to starting the fill process. Nephrology made aware and received approval to give her an hour empty prior to filling. Began emptying at 2049 and finished at 2124. Output was 1900mL of clear
drainage. Pt disconnected from drainage bag and fill to be started at 2124. Also instructed by Nephrology that no exchanges need to be done between midnight and 0500. Once dwell time start next drain will start at 0500. Confirmed with Nephrology
dwell time can be 5-6 hours this one time. Ordered dwell time to remain 4 hours for all other exchanges.
[2025-05-08] MEDS: ROXICODONE 5 MG PO (23:34)
[2025-05-09] VITALS (20 sets, daily range): BP systolic 128–163; BP diastolic 82–118; BMI 18.6
[2025-05-09 00:19] LABS: APTT 80.1 Sec (23.4-35.0)
--- NOTE | 2025-05-09 00:39 | PTCARENOTE ---
Patient requesting to empty and then wait an hour prior to starting the fill process. Nephrology made aware and received approval to give her an hour empty prior to filling. Began emptying at 2049 and finished at 2124. Output was 1900mL of clear
drainage. Infusion started at 2231 and dwell started at 5.
Pt c/o 7/10 pain in her abdomen during filling, PD set up adjusted to slow the rate of filling. COPY ROOM TECHNICIAN made aware and Rx received for pain medication (see MAR).
Instructed by Nephrology that no exchanges need to be done between midnight and 0500. Confirmed with Nephrology dwell time can be 5-6 hours this one time. Ordered dwell time to remain 4 hours for all other exchanges.
Pt is now resting in bed asleep with call jimenez in reach.
--- NOTE | 2025-05-09 00:47 | PTCARENOTE ---
Patient requesting to empty and then wait an hour prior to starting the fill process. Nephrology made aware and received approval to give pt an hour empty prior to filling. Began emptying at 2049 and finished at 2124. Output was 1900mL of clear
drainage. Pt disconnected from drainage bag.
Fill started at 2231. Pt c/o 7/10 cramping pain in her abdomen during filling. PD setup adjusted to slow rate of infusion. SILO PAINTER made aware and order for pain medication received and med administer (see MAR).
Also instructed by Nephrology that no exchanges need to be done between midnight and 0500. Once dwell time start next drain will start at 0500. Confirmed with Nephrology dwell time can be 5-6 hours this one time. Ordered dwell time to remain 4 hours
for all other exchanges.
Pt is now resting in bed asleep.
[2025-05-09] MEDS: OFIRMEV 100 IV ×2 (04:23→09:12)
[2025-05-09] MEDS: APRESOLINE 5 MG IV ×2 (05:29→18:17)
[2025-05-09 06:25] LABS: Hematocrit 31.5 % (37.0-47.0); Hemoglobin 10.3 g/dL (12.0-16.0); Mean Corp Hgb Conc. 32.7 g/dL (33.0-37.0); Mean Corpuscular Volume 89.2 fL (81.0-99.0); Platelet Count 362 10^3/uL (130-400); Red Cell Dist. Width 14.4 % (11.5-14.5)
[2025-05-09 06:35] LABS: APTT 68.4 Sec (23.4-35.0)
[2025-05-09 06:53] LABS: Blood Urea Nitrogen 42 mg/dl (7-17); Calcium 7.7 mg/dl (8.4-10.2); Carbon Dioxide 20 mmol/L (22-30); Chloride 107 mmol/L (98-107); Estimated Creatinine Clearance 12 ml/min; Glucose 85 mg/dl (70-99); Potassium 3.8 mmol/L (3.5-5.1); Sodium 136 mmol/L (135-145); eGFR 10.16
[2025-05-09] MEDS: HEPARIN 2200 UNITS IV (07:10)
[2025-05-09] MEDS: BUMEX 2 MG PO ×3 (07:41→21:25)
[2025-05-09] MEDS: KCL 10 MEQ PO (07:41)
[2025-05-09] MEDS: COREG 6.25 MG PO ×2 (07:44→21:26)
[2025-05-09] MEDS: MYFORTIC DELAYED REL. 360 MG PO ×2 (07:45→21:26)
[2025-05-09] MEDS: DELTASONE 5 MG PO (07:45)
[2025-05-09] MEDS: PROCARDIA XL (EXTENDED RELEASE) 60 MG PO (07:45)
[2025-05-09] MEDS: NEPHROCAP 1 CAPSULE PO (07:45)
[2025-05-09] MEDS: HEPARIN 25000 UNITS/250 ML IV (08:00)
[2025-05-09] MEDS: COLACE 100 MG PO (08:05)
--- NOTE | 2025-05-09 08:54 | W.PN.HOSP.TC ---
Today's Communication/Plan
-
Consult ID
Continue with IV heparin
Assessment / Plan
Assessment / Plan
Constellation of what looks like infectious symptoms
Fever, cough, shortness of breath, diarrhea, headache and neck stiffness
I doubt that the left upper lobe thrombus on VQ scan explains all her symptoms.
She is immunocompromised-on immunosuppressive agents for lupus
She in the past had a pneumonia diagnosis and her last chest CT showed improving tree-in-bud opacities in the lungs.
Aspirate from peritoneal dialysis shows no evidence of SBP.
Flu and COVID-negative.
Chest x-ray no obvious infiltrates
Patient was granulocytopenia with left shift on admission
Consult ID.
Consider lumbar puncture.
Consider chest CT to rule out recurrent pneumonic process
Shortness of Breath / Dyspnea on Exertion
VQ scan concerning for left upper lobe PE with mismatch.
History of PE August 2024 status post 3 months of DOAC
-Patient is unable to have CT scan due to ESRD on PD
- Echo shows normal EF and no evidence of pulmonary hypertension and so doubt CTEPH
- Lung Perfusion Scan from August with medium sized wedge shaped perfusion defect extending to the periphery in the left upper lobe
- O2 ok
- Unclear if the left upper lobe thrombus is chronic, inadequately treated, recurrent
- Continue with IV heparin and consider switching to oral anticoagulation
- Antiphospholipid antibody testing pending
-Pulmonary and hematology follow
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
-Consulted Nephrology
-Continue Bumex for volume management
-Continue mycophenolate and prednisone
- CW PD
Benign Hypertension
Not under goal
-Continue Coreg , Valsartan but increased dose of Nifedipine
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
Code Status: Full Code
Discussed with ID and pulmonary
Anticipated Discharge: > 48 hours
Subjective/Interval History
-
Date of Service: May 09, 2025
Patient presenting complaint started post Thanksgiving.
Started with cough and shortness of breath which was exertional and sometimes at rest. Not much productive cough.. At onset she also had loose diarrheal stool. She also had fevers at home.
She started to feel progressively weak and she could not even get out of the bed.
She started to have headaches especially in the back of the head and the neck and she was feeling neck was stiff.
She had and has photophobia. She felt as though she had migraine. No chronic migraine headaches. No prior history of meningitis. She had pneumonia diagnosis in August of this year.
She is attributing her headaches to the elevated blood pressure.
She experiences abdominal cramping with peritoneal dialysis. IV Tylenol was helpful.
Objective Data
-
Labs:
Laboratory Results
05/09/25 05/09/25 05/09/25
00:00 06:18 13:15
WBC 5.8
Hgb 10.3 L
Hct 31.5 L
Plt Count 362
APTT 80.1 H 68.4 H Pending
Sodium 136
Potassium 3.8
Chloride 107
Carbon Dioxide 20 L
BUN 42 H
Creatinine 5.2 H*
Glucose 85
Calcium 7.7 L
Vital Signs:
Vital Signs
Temp Pulse Resp BP Pulse Ox
97.7 F 94 20 138/111 97
05/09/25 07:42 05/09/25 08:39 05/08/25 05:43 05/09/25 08:39 05/09/25 08:37
I&O
05/08/25 05/09/25 05/10/25
06:59 06:59 06:59
Intake Total 240 / 240 760 / 760
Balance 240 / 240 760 / 760
Physical Exam
-
General: Negative Comfortable (Lying in a dark room. Light bothers her.)
HEENT: Moist Mucous Membranes
Respiratory: Clear to Auscultation and Non Labored Respirations; Negative Wheezes, Crackles or Accessory Resp Muscle Use
Cardiac: Regular Rhythm, S1/S2 and Tachycardic
GI: Soft and Nontender
Musculoskeletal: No Edema
Neuro: AO x 3 and Other (Positive neck stiffness)
Psych: Calm; Negative Confused
Data Reviewed
-
Labs: Labs Reviewed by me
--- NOTE | 2025-05-09 09:44 | PTCARENOTE ---
Patient AAOx3. Able to make needs known. Pain management ongoing for neck pain and cramping of abdomen during PD. ND aware. Hep gtt infusing. Monitoring PTT. Call jimenez within reach.
--- NOTE | 2025-05-09 09:45 | CON.ID ---
Consultation
-
Date/Time Consultation Requested: 05/09/2025 0900
Date/Time Consultation Performed: 05/09/2020 [id number]
Requesting Provider: Dr. Navarrete
Performing Provider: Dr. Berrios
Reason for Consultation: Fever, cough, shortness of breath
Chief Complaint / Past History
History of Present Illness
Elisabeth Lee is a 40-year-old female with a significant past medical history of lupus nephritis being evaluated at the request of Dr. Navarrete because of fever. History is obtained from chart review, along with patient interview.
SHERIE reports that around Thanksgi she developed fever to 102.6 degrees for several days. Additionally, she began to feel very weak and began to have light sensitivity. Additional symptoms included cough and the development of diarrhea. Since
Thanksgi, she has had progression of her light sensitivity, along with the development of headaches and neck discomfort. She notes that some of her weakness has improved, though as initially she spent a significant amount of time in bed, but
more recently has been getting to the bathroom and down the stairs. She notes her cough is nonproductive and without hemoptysis. She denies any significant muscle pains. She reports occasional chest pain with cough. She has ongoing abdominal
discomfort which is intermittent and ranges from 7�10 / 10. No history of vision changes.
Regarding her history of lupus, she has been on prednisone 5 mg/day for the past 3 years and has been on mycophenolate for the past 5 years. She notes no significant change in her abdominal discomfort and tenderness.
Past History
Additional Past Medical History:
Lupus nephritis
ESRD�PD
Hx PE (08/2024)
Hypertension
Additional Past Surgical History:
PD catheter placement
Allergy History:
infliximab (From Remicade) Allergy (Verified 05/07/25 18:00)
Anaphylaxis
Penicillins Allergy (Verified 05/07/25 18:00)
Hives
Medications Reviewed: Yes
Current Antibiotics:
None
Social History
Tobacco: Non-Smoker
Alcohol: None
Drug: None
Personal:
Living: With Family
Employment: Disabled
Family History
Family History: Not Pertinent
Review of Systems
Vital Signs
Temp Pulse Resp BP Pulse Ox
97.7 F 94 20 138/111 97
05/09/25 07:42 05/09/25 08:39 05/08/25 05:43 05/09/25 08:39 05/09/25 08:37
Physical Exam
Physical Exam
Constitutional: No Acute Distress, Comfortable and Non-toxic
Head: Normocephalic
Eyes: Pupils Equal, Pupils Round, No Conjunctival Hemorrhage and Sclera Anicteric
Oral: No Thrush and No Ulcers
Cardiovascular: Regular Rate and S1/S2; Negative S3/S4
Pulmonary: Clear and Non Labored; Negative Wheezes, Rales or Rhonchi
Gastrointestinal: Soft, Tender (Diffusely) and Non Distended
Extremities: Negative Edema, Cyanosis or Erythema
Skin: Warm and Dry; Negative Rash or Jaundice
Neurological: Awake, Alert, Oriented and Meningeal Signs (neck discomfort with active range of motion although no observable neck stiffness. No Brudzinski sign)
Psychological: Calm
Lab / Diagnostic Study Results
05/09/25 06:18
05/09/25 06:18
Abs Immat Gran (auto) 0.2 10^3/uL (0-0.05) H 05/07/25 18:09
Absolute Neuts (auto) 2.5 10^3/uL (1.4-6.5) 05/07/25 18:09
Absolute Lymphs (auto) 0.8 10^3/uL (1.2-3.4) L 05/07/25 18:09
Absolute Monos (auto) 0.3 10^3/uL (0.1-0.6) 05/07/25 18:09
Absolute Basos (auto) 0.0 10^3/uL (0-0.2) 05/07/25 18:09
Immature Gran % 4.5 % (0-0.5) H 05/07/25 18:09
Neutrophils % 66.4 % (42.2-75.2) 05/07/25 18:09
Lymphocytes % 21.2 % (20.5-51.1) 05/07/25 18:09
Monocytes % 6.6 % (1.7-9.3) 05/07/25 18:09
Eosinophils % 0.5 % (0-6) 05/07/25 18:09
Basophils % 0.8 % (0-2) 05/07/25 18:09
Microbiology Results
Micro:
05/08/25 10:34 Body Fluid Culture - Preliminary
Peritoneal Fluid No Growth After 18-24 Hours
Gram Stain - Preliminary
05/07/25 18:09 Influenza Types A & B (TASH) - Final
Nasal Swab Negative for Influenza A & B, NAAT
Negative results must be combined with clinical observations
and patient history.
Nucleic Acid Amplification test (NAAT)performed on the
[facility] platform.
Imaging:
05/07/2025 duplex ultrasound lower extremity: no sonographic evidence for lower extremity venous thrombosis.
05/07/2025 CXR (2 view): no evidence of active cardiopulmonary disease
Assessment / Plan
Headache
Photophobia
Neck discomfort
Lupus nephritis
ESRD�PD
Hx PE (08/2024)
Hypertension
Recommendations:
At present, patient with normal white count, and admission CBC and differential did not show a preponderance of neutrophils, making an infectious process somewhat less likely.
Would hold on antibiotics at present.
Would obtain MRI brain with and w/o contrast, (+/- MRV), with possible LP thereafter.
Consider Neurology evaluation as not clear whether headache is secondary to migraine, lupus or potential infection.
Care Review
Plan reviewed with: Physician (Hospitalist)
--- NOTE | 2025-05-09 10:50 | CON.PUL ---
Consultation
Consultation Request
Date/Time Consultation Requested: 05/09/2025-7:30 AM
Date/Time Consultation Performed: 05/09/2025-8 AM
Requesting Provider: Dr. Navarrete
Performing Provider: Dr. Osman
Reason for Consultation: Pulmonary embolism
Medical History
-
Chief Complaint: Shortness of breath
History of Present Illness:
40-year-old nonsmoking female with end-stage renal disease due to lupus nephritis, on peritoneal dialysis with history of DVT in 2012 while taking oral contraceptives and recent pulmonary embolism August 2024, treated at [facility], completed 3 months of
Eliquis felt that have been provoked and now presents off anticoagulation with shortness of breath and positive VQ scan-pulmonary consulted for possible pulmonary embolism. 05/09/25. The patient continues to have some shortness of breath, but no
pleurisy. With coughing. She complains of some chest pain anteriorly on the left side. She does not have any chest congestion, but does have an upper respiratory tract infection-like symptomatology since [facility]. She also flew on an
airplane to [place] around [facility]. She denies any abdominal pain, now focal weakness or increased swelling.
Past Medical History
Past Medical History: None ( ESRD secondary to lupus nephritis, on peritoneal dialysis. DVT 2012 while on oral contraceptives. 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 Hypertension.)
Social History
Tobacco: Non-smoker
Drug: None
Personal:
Living: With Family
Occupational Exposures: No known asbestos exposure
Environmental Exposures: No known tuberculosis exposure
Family History
Family History: Reviewed & Not Pertinent
Allergies / Home Medications
Allergies
Allergy/AdvReac Type Severity Reaction Status Date / Time
infliximab (From Remicade) Allergy Anaphylaxis Verified 05/07/25 18:00
Penicillins Allergy Hives Verified 05/07/25 18:00
Home Medications
�Medication �Instructions �Recorded �Confirmed �Last Taken �Type
bumetanide 2 mg tablet 2 mg PO TID Fluid 05/07/25 05/07/25 05/07/25 History
Retention/Swelling
carvedilol 6.25 mg tablet (Coreg) 6.25 mg PO BID Blood Pressure 05/07/25 05/07/25 05/07/25 History
cholecalciferol (vitamin D3) 25 50 mcg PO DAILY Supplement 05/07/25 05/07/25 05/07/25 History
mcg (1,000 unit) tablet (Vitamin
D3)
mycophenolate sodium 360 mg 360 mg PO BID Lupus 05/07/25 05/07/25 05/07/25 History
tablet,delayed release
nifedipine 30 mg tablet,extended 30 mg PO QPM Blood Pressure 05/07/25 05/08/25 03/31/25 History
release
nifedipine 90 mg tablet,extended 90 mg PO DAILY Blood Pressure 05/07/25 05/08/25 04/21/25 History
release
potassium chloride 10 mEq 10 meq PO DAILY Supplement 05/07/25 05/07/25 05/07/25 History
tablet,extended release
prednisone 5 mg tablet 5 mg PO DAILY Lupus 05/07/25 05/07/25 05/07/25 History
valsartan 80 mg tablet 80 mg PO HS Blood Pressure 05/07/25 05/07/25 05/06/25 History
vitamin B complex-vitamin C-folic 1 tab PO DAILY Supplement 05/07/25 05/07/25 05/07/25 History
acid 0.8 mg tablet (Opal-Greg)
nifedipine 30 mg tablet,extended 30 mg PO DAILY Blood Pressure 05/08/25 05/08/25 05/07/25 09:30 History
release
Review of Systems
-
Unable to Obtain full review of systems at this time due to: Other ( per HPI)
Vitals / Labs / Diagnostic Testing
Vital Signs
Temp Pulse Resp BP Pulse Ox
97.7 F 101 20 128/82 97
05/09/25 07:42 05/09/25 10:00 05/08/25 05:43 05/09/25 10:00 05/09/25 08:37
Lab Data
05/09/25 06:18
05/09/25 06:18
Laboratory Results
05/08/25 05/09/25 05/09/25
14:49 00:00 06:18
APTT > 200 H* 80.1 H 68.4 H
Microbiology
05/08/25 10:34 Peritoneal Fluid Body Fluid Culture - Preliminary
No Growth After 18-24 Hours
05/08/25 10:34 Peritoneal Fluid Gram Stain - Preliminary
05/07/25 18:09 Nasal Swab Influenza Types A & B (TASH) - Final
Negative for Influenza A & B, NAAT
Negative results must be combined with clinical observations
and patient history.
Nucleic Acid Amplification test (NAAT)performed on the
[employer] platform.
Diagnostic Testing:
Physical Exam
-
Exam:
Well-nourished and well-developed in no apparent distress
HEENT-atraumatic, normocephalic
Neck-supple, no JVD, no bruit
Heart-regular rate and rhythm-no murmurs, rubs or gallops
Chest-clear to auscultation, no wheezes, crackles
Back-no tenderness
Abdomen-soft, nontender, nondistended, no hepatosplenomegaly
Extremities-no cyanosis, clubbing, edema and good peripheral pulses
Integument-intact, no rashes, lesions or ecchymosis
Neurology-alert and oriented, nonfocal motor and sensory exam
Assessment
-
40-year-old nonsmoking female with end-stage renal disease due to lupus nephritis, on peritoneal dialysis with history of DVT in 2012 while taking oral contraceptives and recent pulmonary embolism August 2024, treated at [facility], completed 3 months of
Eliquis felt that have been provoked and now presents off anticoagulation with shortness of breath and positive VQ scan-pulmonary consulted for possible pulmonary embolism 05/09/25.
Shortness of breath.
Recent upper respiratory tract infection.
Headache.
Leukopenia.
Normocytic anemia-hemoglobin 10.3
Conditions present prior to admission:
ESRD secondary to lupus nephritis, on peritoneal dialysis. .
Chronic immunosuppression-lupus
DVT 2012 while on oral contraceptives.
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
Hypertension.
Plan
Etiology of increased shortness of breath, suspected related to upper respiratory tract infection.
[facility] V/Q scan from August as well as CT [facility] was reviewed which revealed a pneumonia and left upper lobe mismatch defect similar to current mismatch V/Q defect.
Supplemental oxygen as needed
Inhalers/nebulizers if needed-currently not bronchospastic.
Suspect chronic left upper lobe pulmonary embolism-status post 3 months Eliquis-no imaging obtained thereafter to ensure clearing-saw hematology
Hematology evaluation locally ongoing
Continue anticoagulation-On heparin drip
Convert to oral anticoagulants-possibly warfarin this patient wants kidney transplant.
Check cultures.
Observe off antibiotics.
Infectious disease to see patient.
Nephrology following.
Peritoneal dialysis as needed..
Mycophenolate and prednisone continued
Monitor headache.
Consider brain imaging..
Consider lumbar puncture
Monitor hemoglobin..
Transfuse if needed
DVT prophylaxis-on anticoagulation.
Nutrition
Early mobilization.
Reviewed with Dr. Navarrete
Eventual pulmonary follow-up
Diagnostic data:
Chest x-ray 05/07/25-NAD.
Lower extremity ultrasound 05/07/25-no evidence for DVT.
VQ scan 05/08/25-mismatched peripheral perfusion defect, apical segment left upper lobe-intermediate probability
VQ scan August [id number] left upper lobe mismatch defect.
CT chest August [id number] of pneumonia and mucus was noted
Data Reviewed
-
EKG: Report reviewed by me
Radiology: Report reviewed by me
CT Scan: Report reviewed by me
Medical Tests (Nuc Med, Echo etc): Report reviewed by me
Labs: Labs reviewed by me
Old Records: Reviewed
Total Time Spent with Patient (in minutes): 55
--- NOTE | 2025-05-09 10:54 | PN.CDI ---
CDI
- -
CDI:
Physician Documentation Request
Admit Date: 05/07/25 22:51
Dear Doctor,
Please review the following and provide your response in the progress notes.
Clinical Indicators:
Height: 5' 6'
Weight: 117 lbs
BMI: 19.0
ER Physician Documentation: 'persistent diarrhea worse than her usual chronic diarrhea due to her PD, leading to a weight loss of approximately five pounds'
If possible, please provide an associated diagnosis related to the abnormal BMI, such as:
Cachectic
BMI is not significant
Other
BMI < or = to 19.9
Underweight
Weight Loss
Cachectic
Anorexia
Use of terms such as suspected, likely, concern for, or probable (associated with a specific diagnosis that is being evaluated, monitored, or treated as if it exists) are acceptable and can be coded in the inpatient setting, when documented at the
time of discharge.
Thank you,
Elen Hoffman RN, BSN
CDI Specialist
Available via [employer] text
Please use your independent medical judgment in providing your response.
[2025-05-09] MEDS: CALCIUM GLUCONATE 100 IV (11:03)
--- NOTE | 2025-05-09 11:59 | W.PN.NEPH.PH ---
Today's Communication / Plan
-
see plan
Assessment/Plan
-
Impression:
ESRD (Lupus nephritis)/PD
Presentation with shortness of breath dyspnea on exertion
Hypertension
History of PE (patient had this last August and was on Eliquis for 3 months)
Anemia
Metabolic acidosis
Plan:
PD orders were provided, 2L q4hr exchange, all 1.5%
flow sheets noted, net +ve balance but she also has good UOP
c/o sig pain with drain(typically on tidal in cycler at home), PD fluid with out infection
she seem euvolemic, extending dwell time will likely result in more fluid retention
hence will do PD from 7am and 7pm and dry during night
met acidosis is improving , seem more primary resp alkalosis driven
Maintains on prednisone and mycophenolate in setting of lupus nephritis
v/q scan mismatch , on heparin gtt
ID consulted and MRI ordered for HINOJOSA and photosensitivity
hypocalcemia-s/p IV rider, check vit D level-on D3 at home
d/w pt and nursing
-
-
Date of Service: May 09, 2025
CC / HPI / ROS
-
Chief Complaint:
ESRD on PD
History of Present Illness:
no fever
WBC normal, hb stable 10.3
k normal, bicarb improving to 20
tiki low 7.7
Review of Systems:
c/o HINOJOSA, phostosensitivity
c/o abd pain with PD
sob, not on O2
Labs
-
Labs:
WBC 5.8 10^3/uL (4.8-10.8) 05/09/25 06:18
RBC 3.53 10^6/uL (4.20-5.40) L 05/09/25 06:18
Hgb 10.3 g/dL (12.0-16.0) L 05/09/25 06:18
Hct 31.5 % (37.0-47.0) L 05/09/25 06:18
Plt Count 362 10^3/uL (130-400) 05/09/25 06:18
Sodium 136 mmol/L (135-145) 05/09/25 06:18
Potassium 3.8 mmol/L (3.5-5.1) 05/09/25 06:18
Chloride 107 mmol/L (98-107) 05/09/25 06:18
Carbon Dioxide 20 mmol/L (22-30) L 05/09/25 06:18
BUN 42 mg/dl (7-17) H 05/09/25 06:18
Creatinine 5.2 mg/dL (0.6-1.0) H* 05/09/25 06:18
eGFR 10.16 05/09/25 06:18
Glucose 85 mg/dl (70-99) 05/09/25 06:18
Calcium 7.7 mg/dl (8.4-10.2) L 05/09/25 06:18
Albumin 3.8 g/dl (3.5-5.0) 05/07/25 18:09
Physical Exam
-
Vital Signs:
Vital Signs
Temp Pulse Resp BP Pulse Ox
97.7 F 101 20 128/82 97
05/09/25 07:42 05/09/25 10:00 05/08/25 05:43 05/09/25 10:00 05/09/25 08:37
Cardiovascular:: Regular rate and rhythm
Respiratory:: Bilateral: CTA (anteriorly)
Lung Excursion:: Normal
Abdomen:: Soft and Tender (gen)
Extremity Edema:: None: Bilateral:
Can Catheter: No
--- NOTE | 2025-05-09 12:52 | CON.NEURO4 ---
Addendum entered and electronically signed by Jose Navarro MD 05/09/25 18:16:
The patient was seen and examined along with the nurse practitioner Charity Storm and I agree with her assessment and management plan. I have personally performed the medical decision making of this encounter and my assessment and management plan
is as given below.
This is a 40-year-old right-handed female who has presented to the hospital on 05/07/25 with report of dyspnea, cough, and persistent diarrhea. Patient reports that since 04/25/25 she has felt unwell. When she sits up or stands she becomes dizzy. She
also notes having severe diarrhea, a fever of 102.8 around Thanksgiving, and dyspnea. Two days ago she reports that she developed severe neck pain/stiffness and a posterior headache that radiates up to the top of her head. She describe this as a
pressure sensation. She endorses phono/photophobia that has significantly worsened today. She has intermittent nausea, denies any vomiting. VQ scan 05/08/25 is suggestive of pulmonary embolism, patient was placed on a heparin drip.
Neurologic examination: The patient is alert and oriented x 3, speech is clear, the cranial nerves II to XII grossly intact, the motor strength is antigravity x 4, sensation is grossly intact bilaterally and there is no limb ataxia seen. The
patient has signs of meningeal irritation present.
. ID has been consulted.
. The plan is to do MRI of the brain with and without contrast and MRV of the brain with contrast.
. Lumbar puncture after the MRI and MRV results are available.
. Continue heparin drip and later transition to oral anticoagulant.
Original Note:
Consultation - Neurology 4
-
CONSULTING PHYSICIAN: Jose Navarro MD
REFERRING PHYSICIAN: Hospitalists/Dr. Navarro
DICTATED BY: CHAYO Hilton
DATE/TIME OF REQUEST: 05/09/25
DATE/TIME OF CONSULTATION: 05/09/25
Reason for Consultation: Headache
History of Present Illness:
This is a 40-year-old right-handed female who has presented to the hospital on 05/07/25 with report of dyspnea, cough, and persistent diarrhea. Patient reports that since 04/25/25 she has felt unwell. When she sits up or stands she becomes dizzy.
She also notes having severe diarrhea, a fever of 102.8 around [facility], and dyspnea. Two days ago she reports that she developed severe neck pain/stiffness and a posterior headache that radiates up to the top of her head. She describe this as a
pressure sensation. She endorses phono/photophobia that has significantly worsened today. She has intermittent nausea, denies any vomiting. She denies any visual changes, speech/swallow difficulty, numbness, and focal weakness. She notes having
occasional headaches at baseline associated with hypertension, she denies any history of migraine headaches. She was hospitalized at [facility] in Api2024 with a PE and completed 3 months of apixaban therapy. She is not currently taking any
blood-thinning medications. She flew to [place], [place] around [facility]. She also notes chronic prednisone and mycophenolate usage. VQ scan 05/08/25 is suggestive of pulmonary embolism, patient was placed on a heparin drip.
Past Medical History: Lupus, lupus nephritis, ESRD on PD, PE [facility] DVT 2012, HTN
Surgical History: PD catheter placement
Family History: Reviewed and noncontributory.
Social History: Denies tobacco, alcohol, and illicit drug use.
Allergies: Penicillins, infliximab.
Home Medications: See below.
Review of Symptoms:
Patient denies any chest pain, shortness of breath, GI or symptoms.
�Per the HPI.�All systems are reviewed negative except above.
Physical Exam:
The patient is afebrile, abdomen is nondistended, breathing is unlabored, skin is warm and dry, no edema.
NIH Stroke Scale:
I performed the NIH stroke scale on the patient on 05/09/25 at 1300. The patient scored 0 points on the NIH stroke scale assessment, which were assigned as follows: See below.
Neurologic Examination:
The patient is awake, alert and oriented x 3. She is able to follow commands and answer questions appropriately. There is no aphasia or dysarthria. On cranial nerve assessment, pupils are 3 mm bilateral, round and reactive to light and
accommodation. Visual moss are full. Extraocular movements are intact. Facial sensations are intact and bilaterally symmetrical, there is no facial asymmetry. Hearing is intact bilaterally to normal conversation volume. Tongue palate and uvula are
midline. Sternocleidomastoid strengths are full bilaterally. +Nuchal rigidity, Motor strengths are 5/5 bilateral upper and lower extremities on medical research [place] scale. There is no drift or involuntary movement noted. There was no extinction
noted on double simultaneous stimulation. Coordination is intact by finger to nose bilaterally.
Lab Results: See below.
Neuro Imaging: None.
Differentials for the patient's presentation include:
1. Severe head/neck pain with nuchal rigidity associated with photo/phonophobia in the setting of Lupus and VQ scan suggestive of recurrent pulmonary embolism; etiology of symptoms is concerning for a V[employer] infection/structural brain abnormality
given symptoms are not entirely consistent with migraine.
Patient has the following risk factors for their symptoms: Lupus, chronic prednisone/mycophenolate, PE
Recommendations:
-MRI brain w/ and w/o contrast pending.
-MRV pending.
-Lumbar puncture after MRI results are obtained.
-Continue heparin drip.
-Neurological checks per unit guidelines.
Discussed patient care with: Dr. Navarro, the patient
Vital Signs and Labs
-
Vital Signs and Labs:
Vital Signs
Temp Pulse Resp BP Pulse Ox
97.9 F 94 20 130/100 97
05/09/25 12:00 05/09/25 12:00 05/08/25 05:43 05/09/25 12:00 05/09/25 08:37
Lab Results
05/09/25 06:18
05/09/25 06:18
APTT 68.4 Sec (23.4-35.0) H 05/09/25 06:18
Sodium 136 mmol/L (135-145) 05/09/25 06:18
Potassium 3.8 mmol/L (3.5-5.1) 05/09/25 06:18
BUN 42 mg/dl (7-17) H 05/09/25 06:18
Glucose 85 mg/dl (70-99) 05/09/25 06:18
Calcium 7.7 mg/dl (8.4-10.2) L 05/09/25 06:18
Medications
-
Active Medications
Generic Name Dose Route Start Last Admin
Trade Name Freq PRN Reason Stop Dose Admin
Acetaminophen 650 mg 05/08/25 09:00 05/08/25 20:42
Acetaminophen 325 Mg Tablet PO 06/05/25 08:59 650 mg
Q4HPRN PRN Administration
mild pain/ fever>100.5F
Bumetanide 2 mg 05/08/25 08:00 05/09/25 07:41
Bumetanide 1 Mg Tablet PO 06/05/25 07:59 2 mg
TID JETT Administration
Carvedilol 6.25 mg 05/08/25 08:00 05/09/25 07:44
Carvedilol 6.25 Mg Tablet PO 06/05/25 07:59 6.25 mg
BID JETT Administration
Docusate Sodium 100 mg 05/08/25 02:17 05/09/25 08:05
Docusate Sodium 100 Mg Capsule PO 06/05/25 02:16 100 mg
BIDPRN PRN Administration
constipation
Heparin Sodium 4,500 units 05/08/25 02:00
Heparin 80 Units/Kg Iv Rebolus IV 06/05/25 01:59
PRN PRN
PTT < OR = 64 seconds
Heparin Sodium 2,200 units 05/08/25 02:00 05/09/25 07:10
Heparin 40 Units/Kg Iv Rebolus IV 06/05/25 01:59 2,200 units
PRN PRN Administration
PTT = 64.1 to 72.9 seconds
Hydralazine HCl 5 mg 05/08/25 16:21 05/09/25 05:29
Hydralazine 20 Mg/Ml Vial IV 06/05/25 16:20 5 mg
Q6HPRN PRN Administration
sbp>160 or dbp>100
Heparin Sodium 25,000 units in 250 mls @ 0 mls/hr 05/07/25 22:30 05/09/25 08:00
Heparin 46634 Units/250 Ml IV 250 mls
PER PROTOCOL JETT Administration
Protocol
Per Protocol
Mycophenolate Sodium 360 mg 05/08/25 08:00 05/09/25 07:45
Mycophenolic Acid [address] Tablet (Non Form) PO 360 mg
BID JETT Administration
Nifedipine 60 mg 05/09/25 08:00 05/09/25 07:45
Nifedipine 60 Mg Extended Release Tablet PO 06/06/25 07:59 60 mg
DAILY JETT Administration
Potassium Chloride 10 meq 05/08/25 08:00 05/09/25 07:41
Potassium Chloride 10 Meq Extended Release Tablet PO 06/05/25 07:59 10 meq
DAILY JETT Administration
Prednisone 5 mg 05/08/25 08:00 05/09/25 07:45
Prednisone 5 Mg Tablet PO 06/05/25 07:59 5 mg
DAILY JETT Administration
Sodium Chloride 0 flush 05/08/25 03:00
Sodium Chloride 0.9% (Flush) Syringe IV 06/05/25 02:59
PER PROTOCOL JETT
Valsartan 80 mg 05/08/25 22:00 05/08/25 22:58
Valsartan 80 Mg Tablet PO 06/05/25 21:59 80 mg
HS JETT Administration
Vitamin B Complex/Vit C/Folic Acid 1 capsule 05/08/25 08:00 05/09/25 07:45
Renal Cap (Nephrocap) Capsule PO 06/05/25 07:59 1 capsule
DAILY JETT Administration
Home Medications
�Medication �Instructions �Recorded
bumetanide 2 mg tablet 2 mg PO TID Fluid 05/07/25
Retention/Swelling
carvedilol 6.25 mg tablet (Coreg) 6.25 mg PO BID Blood Pressure 05/07/25
cholecalciferol (vitamin D3) 25 50 mcg PO DAILY Supplement 05/07/25
mcg (1,000 unit) tablet (Vitamin
D3)
mycophenolate sodium 360 mg 360 mg PO BID Lupus 05/07/25
tablet,delayed release
nifedipine 30 mg tablet,extended 30 mg PO QPM Blood Pressure 05/07/25
release
nifedipine 90 mg tablet,extended 90 mg PO DAILY Blood Pressure 05/07/25
release
potassium chloride 10 mEq 10 meq PO DAILY Supplement 05/07/25
tablet,extended release
prednisone 5 mg tablet 5 mg PO DAILY Lupus 05/07/25
valsartan 80 mg tablet 80 mg PO HS Blood Pressure 05/07/25
vitamin B complex-vitamin C-folic 1 tab PO DAILY Supplement 05/07/25
acid 0.8 mg tablet (Opal-Greg)
nifedipine 30 mg tablet,extended 30 mg PO DAILY Blood Pressure 05/08/25
release
NIH Stroke Score
Subsequent NIH Scale
Date of Subsequent NIH Scale: 05/09/25
Time of Subsequent NIH Scale: 13:00
NIH Stroke Score
Level of Consciousness: 0 - Alert
LOC Questions: 0-Answers both correctly
LOC Commands: 0-Performs both correctly
Best Horizontal Gaze: 0-Normal
Visual Moss: 0=Normal, no visual loss
Facial Palsy: 0=Normal, symmetrical
Motor - Right Arm: 0=No drift 10 seconds
Motor - Left Arm: 0=No drift 10 seconds
Motor - Right Le-No drift 5 seconds
Motor - Left Le-No drift 5 seconds
Limb Ataxia: 0-Absent
Sensation: 0-Normal
Best Language: 0-No aphasia
Dysarthria: 0-Normal
Extinction and Inattention: 0-No abnormality
NIH Total Score:: 0
Modified Marlys (mRS) Score
Modified Gays Scale (mRS): No symptoms
Score: 0
[2025-05-09 14:23] LABS: APTT 148.4 Sec (23.4-35.0)
[2025-05-09] MEDS: TYLENOL 1000 MG PO ×2 (15:51→21:57)
[2025-05-09 16:13] LABS: C-Reactive Protein < 5.00 mg/L (0.0-10.00)
[2025-05-09] MEDS: MIRALAX 17 GRAMS PO (17:01)
[2025-05-09] MEDS: ZOFRAN 4 MG IV (19:34)
[2025-05-09] MEDS: DILAUDID 0.5 MG IV (19:35)
[2025-05-09] MEDS: DIOVAN 80 MG PO (21:26)
[2025-05-09 22:32] LABS: APTT 71.4 Sec (23.4-35.0)
[2025-05-10] VITALS (8 sets, daily range): BP systolic 114–132; BP diastolic 81–95; BMI 18.3
[2025-05-10] MEDS: HEPARIN 2200 UNITS IV (00:09)
--- NOTE | 2025-05-10 02:34 | PTCARENOTE ---
Addendum entered by Marleny Bundy RN 05/10/25 06:54:
through TT 0635
Addendum entered by Marleny Bundy RN 05/10/25 06:47:
Pt requesting that PD not start until 0930 due to late fill and drain yesterday. Nephrology made aware.
Original Note:
Assumed care of Pt from day RN. During RN report Pt pain level increasing to 9/10 of pain with nauseas. Pt having emesis in bathroom. Discussed with nephrology and hospitalist night COAT CUTTER to place order for Dilaudid and Zofran. On reassessment Pt
finding relief, pain a 5/10. Pt PD completed for evening, drained for 2200 at 2125. Pt remains on heparin gtt not yet therapeutic. Assessment care and vitals as charted.
[2025-05-10 06:41] LABS: Hematocrit 32.3 % (37.0-47.0); Hemoglobin 10.3 g/dL (12.0-16.0); Mean Corp Hgb Conc. 31.9 g/dL (33.0-37.0); Mean Corpuscular Volume 90.0 fL (81.0-99.0); Nucleated Red Blood Cells % 0 %; Platelet Count 386 10^3/uL (130-400); Red Cell Dist. Width 14.4 % (11.5-14.5)
[2025-05-10 06:46] LABS: APTT 102.4 Sec (23.4-35.0)
--- NOTE | 2025-05-10 07:10 | PTCARENOTE ---
Nephrology replied TT Pt should start PD at 7. Information passed on to Day RN.
[2025-05-10 07:15] LABS: Vitamin D, 25-OH*** 36.7 ng/mL (30-80)
[2025-05-10] MEDS: PROCARDIA XL (EXTENDED RELEASE) 60 MG PO (07:38)
[2025-05-10] MEDS: MYFORTIC DELAYED REL. 360 MG PO ×2 (07:38→21:27)
[2025-05-10] MEDS: BUMEX 2 MG PO ×3 (07:38→21:27)
[2025-05-10] MEDS: DELTASONE 5 MG PO (07:38)
[2025-05-10] MEDS: NEPHROCAP 1 CAPSULE PO (07:38)
[2025-05-10] MEDS: KCL 10 MEQ PO (07:38)
[2025-05-10] MEDS: TYLENOL 1000 MG PO ×2 (07:41→21:32)
[2025-05-10] MEDS: COREG 6.25 MG PO ×2 (07:41→21:27)
[2025-05-10] MEDS: COLACE 100 MG PO ×2 (07:48→21:32)
--- NOTE | 2025-05-10 10:00 | PTCARENOTE ---
Assumed care of patient at beginning of this shift from previous RN. Patient due for PD; per nephrology, she does not have PD overnight. Patient had stated she was due at 0930; however, Dr Hopkins sent a TT to night RN that PD should be at 0700. TT
replied to Dr Hopkins by previous RN that treatment may be more towards 0800 as report and rounding was being done; Dr Hopkins said that was ok. Treatment started with a drain of 200. Instilled 1999. Documentation shows fluid excess 1800. Per
documentation, patient drained at 21:43 for 2199. TT sent to Dr Hopkins to make her aware. Patient had some cramping with PD, denied nausea; tylenol was given prior with relief. PD site cleansed and dressing changed. CHG bath done. See worklist for
full assessment and vital signs.
--- NOTE | 2025-05-10 10:36 | W.PN.PUL.V3 ---
Today's Communication / Plan
-
Anticoagulation-eventual conversion to oral anticoagulan
Brain MRI
Lumbar puncture
Assessment
-
40-year-old nonsmoking female with end-stage renal disease due to lupus nephritis, on peritoneal dialysis with history of DVT in 2012 while taking oral contraceptives and recent pulmonary embolism August 2024, treated at [facility], completed 3 months of
Eliquis felt that have been provoked and now presents off anticoagulation with shortness of breath and positive VQ scan-pulmonary consulted for possible pulmonary embolism 05/09/25.
Shortness of breath.
Recent upper respiratory tract infection.
Headache.
Leukopenia.
Normocytic anemia-hemoglobin 10.3
Conditions present prior to admission:
ESRD secondary to lupus nephritis, on peritoneal dialysis. .
Chronic immunosuppression-lupus
DVT 2012 while on oral contraceptives.
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
Hypertension.
Plan
Etiology of increased shortness of breath, suspected related to upper respiratory tract infection.
[facility] V/Q scan from August as well as CT [facility] was reviewed which revealed a pneumonia and left upper lobe mismatch defect similar to current mismatch V/Q defect-suspect she has chronic clot in acute clot
Supplemental oxygen as needed
Inhalers/nebulizers if needed-currently not bronchospastic.
Suspect chronic left upper lobe pulmonary embolism-status post 3 months Eliquis-no imaging obtained thereafter to ensure clearing-saw hematology
Hematology evaluation locally ongoing
Continue anticoagulation-On heparin drip
Convert to oral anticoagulants-possibly warfarin this patient wants kidney transplant.
Cultures reviewed
Blood cultures pending following-
Observe off antibiotics.
Infectious disease findings reviewed
Monitor headache
MRI brain
Lumbar puncture 05/10/2025-pending
Nephrology following.
Peritoneal dialysis as needed..
Mycophenolate and prednisone continued
Monitor headache.
Monitor hemoglobin..
Transfuse if needed
DVT prophylaxis-on anticoagulation.
Nutrition
Early mobilization.
Eventual pulmonary follow-up
Diagnostic data:
Chest x-ray 05/07/25-NAD.
Lower extremity ultrasound 05/07/25-no evidence for DVT.
VQ scan 05/08/25-mismatched peripheral perfusion defect, apical segment left upper lobe-intermediate probability
VQ scan August [id number] left upper lobe mismatch defect.
CT chest August [id number] of pneumonia and mucus was noted
Subjective Data
-
Date of Service:
Date of Service: May 10, 2025
Chief Complaint: Pulmonary Follow Up and VTE Follow Up
Subjective:
Feels a little better, still has some shortness of breath, no chest pain, wheezing, productive cough
Review of Systems
General: Other (Per HPI)
Objective Data
Data Reviewed
Vital Signs / I&O:
Vital Signs
Temp Pulse Resp BP Pulse Ox
97.9 F 89 20 127/95 97
05/10/25 07:26 05/10/25 08:00 05/08/25 05:43 05/10/25 07:41 05/10/25 09:38
Intake and Output
05/09/25 05/10/25 05/11/25
06:59 06:59 06:59
Intake Total 760 / 760 940 / 940 1800 / 1800
Output Total 1000 / 1000
Balance 760 / 760 -60 / -60 1800 / 1800
SaO2: 97
Physical Exam
General: Respiratory Distress (n) and Comfortable
HEENT: Normocephalic and Moist Mucous Membranes
Cardiovascular: Regular Rhythm
Respiratory: Wheeze (n), Crackles (n), Rhonchi, Non-Labored Respirations, Accessory Resp Muscle Use (n) and Stridor (n)
GI: Soft, Non Distended and Non Tender
Neurology: Awake, Alert and No Motor Deficits
Skin: Warm, Good Color, Cyanosis (n), Jaundice (n) and Rash (n)
Labs/Micro/Reports
Lab Data
05/10/25 06:21
05/09/25 06:18
Laboratory Results
05/09/25 05/09/25 05/10/25
13:55 22:09 06:21
APTT 148.4 H 71.4 H 102.4 H
Microbiology
05/08/25 10:34 Peritoneal Fluid Body Fluid Culture - Preliminary
No Growth After 48 Hours
05/08/25 10:34 Peritoneal Fluid Gram Stain - Preliminary
05/07/25 18:09 Nasal Swab Influenza Types A & B (TASH) - Final
Negative for Influenza A & B, NAAT
Negative results must be combined with clinical observations
and patient history.
Nucleic Acid Amplification test (NAAT)performed on the
[employer] platform.
--- NOTE | 2025-05-10 10:36 | W.PN.ID1 ---
Date of Service
Date of Service: May 10, 2025
Today's Communication
Observe off antibiotics. Await MRI.
Assessment / Plan
Headache
Photophobia
Neck discomfort
Lupus nephritis
ESRD�PD
Hx PE (08/2024)
Hypertension
Recommendations:
Normal white count without left shift suggests an infectious process somewhat less likely.
Continue to hold on antibiotics.
Brain MRI/MRV ordered. LP to be performed afterwards.
Await further testing to guide additional workup
����������������������������������������������������������
Chief Complaint
-: Fever
Subjective / Review of Systems
Patient seen and examined. Reports ongoing headache, although seem to have improved overnight but now back.
Review of Systems: No Fever and Abdominal Pain (Discomfort)
Vital Signs / Physical Exam
Vital Signs
Vital Signs
Temp Pulse Resp BP Pulse Ox
97.9 F 89 20 127/95 97
05/10/25 07:26 05/10/25 08:00 05/08/25 05:43 05/10/25 07:41 05/10/25 10:36
Physical Exam
Constitutional: No Acute Distress, Comfortable and Non-toxic
Eyes: Sclera Anicteric
Cardiovascular: S1/S2; Negative S3/S4
Pulmonary: Non Labored
Gastrointestinal: Soft, Tender, Non Distended and Normal Bowel Sounds
Neurological: Awake and Alert; Negative Meningeal Signs
Psychological: Calm
Objective Data
Lab Data
Lab Results
05/10/25 06:21
05/09/25 06:18
ESR 16 mm/hour (0-20) 05/09/25 06:18
APTT 102.4 Sec (23.4-35.0) H 05/10/25 06:21
Estimated Creat Clear 12 ml/min 05/09/25 06:18
Total Bilirubin 0.4 mg/dl (0.2-1.3) 05/07/25 18:09
AST 24 U/L (14-36) 05/07/25 18:09
ALT 13 U/L (0-35) 05/07/25 18:09
Alkaline Phosphatase 66 U/L (38-126) 05/07/25 18:09
C-Reactive Protein < 5.00 mg/L (0.0-10.00) 05/09/25 06:18
Most recent labs reviewed.
Micro Results:
05/08/25 10:34 Body Fluid Culture - Preliminary
Peritoneal Fluid No Growth After 48 Hours
Gram Stain - Preliminary
05/09/25 15:18 Blood Culture - Pending
Blood/Venous
05/09/25 13:55 Blood Culture - Pending
Blood/Venous
05/07/25 18:09 Influenza Types A & B (TASH) - Final
Nasal Swab Negative for Influenza A & B, NAAT
Negative results must be combined with clinical observations
and patient history.
Nucleic Acid Amplification test (NAAT)performed on the
[employer] platform.
Imaging:
Brain MRI /MRV: ordered
05/07/2025 duplex ultrasound lower extremity: no sonographic evidence for lower extremity venous thrombosis.
05/07/2025 CXR (2 view): no evidence of active cardiopulmonary disease
--- NOTE | 2025-05-10 12:43 | W.PN.HOSP.TC ---
Today's Communication/Plan
-
MRI of the brain
MRV of the brain
Benadryl and Compazine for headache
Assessment / Plan
Assessment / Plan
Constellation of what looks like infectious symptoms
Fever, cough, shortness of breath, diarrhea, headache and neck stiffness
I doubt that the left upper lobe thrombus on VQ scan explains all her symptoms.
She is immunocompromised-on immunosuppressive agents for lupus
She in the past had a pneumonia diagnosis and her last chest CT showed improving tree-in-bud opacities in the lungs.
Aspirate from peritoneal dialysis shows no evidence of SBP.
Flu and COVID-negative.
Chest x-ray no obvious infiltrates
Patient was granulocytopenia with left shift on admission
Appreciate ID input.
Consulted neurology as well to rule out any intracranial process.
MRI of the brain and MRV of the head requested. If all negative may be consider LP.
She still has headaches with photosensitivity-Will try a trial of antimigraine's medication-Benadryl with Compazine
Shortness of Breath / Dyspnea on Exertion
VQ scan concerning for left upper lobe PE with mismatch.
History of PE August 2024 status post 3 months of DOAC
-Patient is unable to have CT scan due to ESRD on PD
- Echo shows normal EF and no evidence of pulmonary hypertension and so doubt CTEPH
- Lung Perfusion Scan from August with medium sized wedge shaped perfusion defect extending to the periphery in the left upper lobe
- O2 ok
- Unclear if the left upper lobe thrombus is chronic, inadequately treated, recurrent
- Continue with IV heparin and consider switching to oral anticoagulation
- Antiphospholipid antibody testing pending
-Pulmonary and hematology follow
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
-Consulted Nephrology
-Continue Bumex for volume management
-Continue mycophenolate and prednisone
- CW PD
Benign Hypertension
Not under goal
-Continue Coreg , Valsartan but increased dose of Nifedipine
- With higher dose of nifedipine of 90 mg she was feeling dizzy so antihypertensives were changed in March by her primary gusset edger
Code Status: Full Code
Discussed with RN
Total time spent on today's encounter was 52 minutes which included time spent in counseling the patient/family regarding diagnosis and treatment plan as listed above, goals of care, and symptom management. Case was discussed with nursing staff,
specialists, and care coordinators/case management. All labs and imaging personally reviewed by me. Remainder the time spent in detailed review of previous records, lab data, imaging, and other medical provider documentation.
Portions of this chart may have been created with voice recognition software. Occasional wrong word or 'sound alike' substitutions may have occurred due to the inherent limitations of voice recognition software.
Anticipated Discharge: > 48 hours
Subjective/Interval History
-
Date of Service: May 10, 2025
Overall feeling better. Less sensitive to light. Improving headache.
Denies any nausea vomiting. No fever or chills.
Not short of breath at rest. No chest pains.
Abdominal cramp with peritoneal dialysis.
Still keeping the room dark because of photosensitivity.
Objective Data
-
Labs:
Laboratory Results
05/10/25
06:21
WBC 4.9
Hgb 10.3 L
Hct 32.3 L
Plt Count 386
APTT 102.4 H
Vital Signs:
Vital Signs
Temp Pulse Resp BP Pulse Ox
97.9 F 89 20 127/95 97
05/10/25 07:26 05/10/25 08:00 05/08/25 05:43 05/10/25 07:41 05/10/25 10:36
I&O
05/09/25 05/10/25 05/11/25
06:59 06:59 06:59
Intake Total 760 / 760 940 / 940 1800 / 1800
Output Total 1000 / 1000
Balance 760 / 760 -60 / -60 1800 / 1800
Physical Exam
-
General: Comfortable
Respiratory: Clear to Auscultation and Non Labored Respirations; Negative Accessory Resp Muscle Use
Cardiac: Regular Rhythm and S1/S2; Negative Tachycardic
GI: Soft, Nontender and Other (PD cath in place)
Neuro: AO x 3 and Other
Psych: Calm; Negative Confused
--- NOTE | 2025-05-10 12:51 | W.PN.NEPH.PH ---
Today's Communication / Plan
-
cont PD
Assessment/Plan
-
Impression:
ESRD (Lupus nephritis)/PD
Presentation with shortness of breath dyspnea on exertion
Hypertension
History of PE (patient had this last August and was on Eliquis for 3 months)
Anemia
Metabolic acidosis
Plan:
PD continues 2L q4hr exchange, all 1.5%
flow sheets noted, even balance but she also has good UOP
c/o sig pain with drain seem chronic(typically on tidal in cycler at home), PD fluid with out infection
she seem euvolemic, PD from 7am and 7pm and dry during night
met acidosis seem more primary resp alkalosis driven
Maintains on prednisone and mycophenolate in setting of lupus nephritis
v/q scan mismatch , on heparin gtt
s/p MRI and MRV today, with typeII agents of gadolinium risk of NSF is very low
hypocalcemia-normal vit D level
d/w pt and nursing
-
-
Date of Service: May 10, 2025
CC / HPI / ROS
-
Chief Complaint:
ESRD on PD
History of Present Illness:
WBC normal, hb stable 10.3
k normal, bicarb improving to 20, no labs today
Review of Systems:
c/o HINOJOSA, phostosensitivity-better today
c/o abd pain with PD seem chronic
no fever
Labs
-
Labs:
WBC 4.9 10^3/uL (4.8-10.8) 05/10/25 06:21
RBC 3.59 10^6/uL (4.20-5.40) L 05/10/25 06:21
Hgb 10.3 g/dL (12.0-16.0) L 05/10/25 06:21
Hct 32.3 % (37.0-47.0) L 05/10/25 06:21
Plt Count 386 10^3/uL (130-400) 05/10/25 06:21
Sodium 136 mmol/L (135-145) 05/09/25 06:18
Potassium 3.8 mmol/L (3.5-5.1) 05/09/25 06:18
Chloride 107 mmol/L (98-107) 05/09/25 06:18
Carbon Dioxide 20 mmol/L (22-30) L 05/09/25 06:18
BUN 42 mg/dl (7-17) H 05/09/25 06:18
Creatinine 5.2 mg/dL (0.6-1.0) H* 05/09/25 06:18
eGFR 10.16 05/09/25 06:18
Glucose 85 mg/dl (70-99) 05/09/25 06:18
Calcium 7.7 mg/dl (8.4-10.2) L 05/09/25 06:18
Albumin 3.8 g/dl (3.5-5.0) 05/07/25 18:09
Physical Exam
-
Vital Signs:
Vital Signs
Temp Pulse Resp BP Pulse Ox
97.9 F 89 20 127/95 97
05/10/25 07:26 05/10/25 08:00 05/08/25 05:43 05/10/25 07:41 05/10/25 10:36
Cardiovascular:: Regular rate and rhythm
Respiratory:: Bilateral: CTA (anteriorly)
Lung Excursion:: Normal
Abdomen:: Soft and Tender (gen)
Extremity Edema:: None: Bilateral:
Can Catheter: No
[2025-05-10] MEDS: COMPAZINE 10 MG IV (13:07)
[2025-05-10] MEDS: BENADRYL 25 MG IV (13:08)
[2025-05-10 13:18] LABS: APTT 79.7 Sec (23.4-35.0)
--- NOTE | 2025-05-10 15:08 | W.PN.NEURO.1 ---
Addendum entered and electronically signed by Jose Navarro MD 05/10/25 19:24:
The patient was seen and examined along with the nurse practitioner Charity Storm and I agree with her assessment and management plan. I personally performed the medical decision making of this encounter and my assessment and management plan is
as given below.
This is a 40-year-old right-handed female who has presented to the hospital on 05/07/25 with report of dyspnea, cough, and persistent diarrhea. Patient reports that since 04/25/25 she has felt unwell. When she sits up or stands she becomes dizzy. She
also notes having severe diarrhea, a fever of 102.8 around Thanksgiving, and dyspnea. Three days ago she reports that she developed severe neck pain/stiffness and a posterior headache that radiates up to the top of her head. She describe this as a
pressure sensation. She endorses phono/photophobia that has significantly worsened today. She has intermittent nausea, denies any vomiting. VQ scan 05/08/25 is suggestive of pulmonary embolism, patient was placed on a heparin drip.
MRI of the brain with and without contrast did not show an acute intracranial abnormality.
MRA of the head did not show hemodynamically significant stenosis, aneurysm or occlusion and it also showed no dural venous sinus thrombosis or stenosis.
Today, the patient states that she feels better and headache is under control. She also says that the neck stiffness is present but it has decreased since yesterday.
Neurologic examination: The patient is alert and oriented x 3, speech is clear, the cranial nerves II to XII grossly intact, the motor strength is antigravity x 4, sensation is grossly intact bilaterally and there is no limb ataxia seen. The
patient has signs of meningeal irritation present.
. ID has been consulted. ID has recommended that due to normal white cell count without left shift an infectious process is somewhat less likely. Continue to hold antibiotics.
. Lumbar puncture.
. Continue heparin drip and later transition to oral anticoagulant.
Original Note:
Today's Communication / Plan
-
.
Neuro Assessment/Plan
Assessment
This is a 40-year-old right-handed female who has presented to the hospital on 05/07/25 with report of dyspnea, cough, and persistent diarrhea. Patient reports that since 04/25/25 she has felt unwell. When she sits up or stands she becomes dizzy. She
also notes having severe diarrhea, a fever of 102.8 around Thanksgiving, and dyspnea. Two days ago she reports that she developed severe neck pain/stiffness and a posterior headache that radiates up to the top of her head. She describe this as a
pressure sensation. She endorses phono/photophobia that has significantly worsened today. She has intermittent nausea, denies any vomiting. VQ scan 05/08/25 is suggestive of pulmonary embolism, patient was placed on a heparin drip. MRV and MRI brain
are negative for any acute abnormalities.
-MRI brain/MRV 05/10/25: No acute intracranial abnormality noted. No focal hemodynamically significant stenosis, aneurysm or occlusion. No dural venous sinus thrombosis or stenosis. Caceres-sinusitis, worst involving the right sphenoid sinus.
Plan
-Proceed with Lumbar puncture if ID is in agreement.
-Continue heparin drip and later transition to oral anticoagulant.
-Neurological checks per unit guidelines.
Subjective/Objective
Subjective Data
Date of Service: May 10, 2025
No acute events overnight. Patient reports her headache/neck pain is mildly improved today but she still has stiffness and phono/photophobia.
Objective Data
Vital Signs
Temp Pulse Resp BP Pulse Ox
97.7 F 91 10 127/93 98
05/10/25 13:23 05/10/25 12:36 05/10/25 12:36 05/10/25 12:33 05/10/25 13:23
Lab Results
05/10/25 06:21
05/09/25 06:18
APTT 79.7 Sec (23.4-35.0) H 05/10/25 13:00
Sodium 136 mmol/L (135-145) 05/09/25 06:18
Potassium 3.8 mmol/L (3.5-5.1) 05/09/25 06:18
BUN 42 mg/dl (7-17) H 05/09/25 06:18
Glucose 85 mg/dl (70-99) 05/09/25 06:18
Calcium 7.7 mg/dl (8.4-10.2) L 05/09/25 06:18
Patient Allergies
infliximab (From Remicade) Allergy (Verified 05/07/25 18:00)
Anaphylaxis
Penicillins Allergy (Verified 05/07/25 18:00)
Hives
Review of Systems
-
History Source: Patient
Musculoskeletal: Neck Pain
Neuro: Headache; Negative Dizzy, Weakness, Numbness, Ataxia, Tremors or Speech Problem
Physical Exam
-
Eyes: No Ptosis and PERRLA
HEENT: Normocephalic and Atraumatic
Neck: Limited Range of Motion
Extended Neurological Exam
Mood & Affect: Mood Unremarkable and Affect Unremarkable
Attention Span & Concentration: Awake, Alert and Interactive
Memory: Unremarkable and Able to Recall
Tremor: Hand Tremor Absent and Head Tremor Absent
Involuntary Movement: None
Speech: Quality Unremarkable, Quantity Unremarkable and Rate of Production Unremarkable
Cranial Nerve VII: Facial Symmetry: Normal Facial Symmetry
Cranial Nerve VIII: Hearing: Unremarkable Hearing to Normal Conversational Volume
Muscle Strength, Overall: Full Throughout
Data Reviewed
-
MRI Head: Report Reviewed and Image Reviewed
MRA Head: Report Reviewed and Image Reviewed
Labs: Report Reviewed
Reviewed with: Physician and Patient
Medications
-
Active Medications
Generic Name Dose Route Start Last Admin
Trade Name Freq PRN Reason Stop Dose Admin
Acetaminophen 1,000 mg 05/09/25 15:42 05/10/25 07:41
Acetaminophen 500 Mg Tablet PO 06/06/25 15:41 1,000 mg
Q6HPRN PRN Administration
mild pain /fever >100.4
Bumetanide 2 mg 05/08/25 08:00 05/10/25 07:38
Bumetanide 1 Mg Tablet PO 06/05/25 07:59 2 mg
TID JETT Administration
Carvedilol 6.25 mg 05/08/25 08:00 05/10/25 07:41
Carvedilol 6.25 Mg Tablet PO 06/05/25 07:59 6.25 mg
BID JETT Administration
Docusate Sodium 100 mg 05/08/25 02:17 05/10/25 07:48
Docusate Sodium 100 Mg Capsule PO 06/05/25 02:16 100 mg
BIDPRN PRN Administration
constipation
Heparin Sodium 4,500 units 05/08/25 02:00
Heparin 80 Units/Kg Iv Rebolus IV 06/05/25 01:59
PRN PRN
PTT < OR = 64 seconds
Heparin Sodium 2,200 units 05/08/25 02:00 05/10/25 00:09
Heparin 40 Units/Kg Iv Rebolus IV 06/05/25 01:59 2,200 units
PRN PRN Administration
PTT = 64.1 to 72.9 seconds
Hydralazine HCl 5 mg 05/08/25 16:21 05/09/25 18:17
Hydralazine 20 Mg/Ml Vial IV 06/05/25 16:20 5 mg
Q6HPRN PRN Administration
sbp>160 or dbp>100
Heparin Sodium 25,000 units in 250 mls @ 0 mls/hr 05/10/25 01:45
Heparin 51577 Units/250 Ml IV
PER PROTOCOL JETT
Protocol
Per Protocol
Mycophenolate Sodium 360 mg 05/08/25 08:00 05/10/25 07:38
Mycophenolic Acid [address] Tablet (Non Form) PO 360 mg
BID JETT Administration
Nifedipine 60 mg 05/09/25 08:00 05/10/25 07:38
Nifedipine 60 Mg Extended Release Tablet PO 06/06/25 07:59 60 mg
DAILY JETT Administration
Ondansetron HCl 4 mg 05/09/25 19:25 05/09/25 19:34
Ondansetron 4 Mg/2 Ml Vial IV 06/06/25 19:24 4 mg
Q6HPRN PRN Administration
nausea/vomiting
Polyethylene Glycol 17 grams 05/09/25 16:19 05/09/25 17:01
Polyethylene Glycol Powder 17 Grams Packet PO 06/06/25 16:18 17 grams
DAILYPRN PRN Administration
constipation, use second
Potassium Chloride 10 meq 05/08/25 08:00 05/10/25 07:38
Potassium Chloride 10 Meq Extended Release Tablet PO 06/05/25 07:59 10 meq
DAILY JETT Administration
Prednisone 5 mg 05/08/25 08:00 05/10/25 07:38
Prednisone 5 Mg Tablet PO 06/05/25 07:59 5 mg
DAILY JETT Administration
Sodium Chloride 0 flush 05/08/25 03:00
Sodium Chloride 0.9% (Flush) Syringe IV 06/05/25 02:59
PER PROTOCOL JETT
Valsartan 80 mg 05/08/25 22:00 05/09/25 21:26
Valsartan 80 Mg Tablet PO 06/05/25 21:59 80 mg
HS JETT Administration
Vitamin B Complex/Vit C/Folic Acid 1 capsule 05/08/25 08:00 05/10/25 07:38
Renal Cap (Nephrocap) Capsule PO 06/05/25 07:59 1 capsule
DAILY JETT Administration
Home Medications
�Medication �Instructions �Recorded
bumetanide 2 mg tablet 2 mg PO TID Fluid 05/07/25
Retention/Swelling
carvedilol 6.25 mg tablet (Coreg) 6.25 mg PO BID Blood Pressure 05/07/25
cholecalciferol (vitamin D3) 25 50 mcg PO DAILY Supplement 05/07/25
mcg (1,000 unit) tablet (Vitamin
D3)
mycophenolate sodium 360 mg 360 mg PO BID Lupus 05/07/25
tablet,delayed release
nifedipine 30 mg tablet,extended 30 mg PO QPM Blood Pressure 05/07/25
release
nifedipine 90 mg tablet,extended 90 mg PO DAILY Blood Pressure 05/07/25
release
potassium chloride 10 mEq 10 meq PO DAILY Supplement 05/07/25
tablet,extended release
prednisone 5 mg tablet 5 mg PO DAILY Lupus 05/07/25
valsartan 80 mg tablet 80 mg PO HS Blood Pressure 05/07/25
vitamin B complex-vitamin C-folic 1 tab PO DAILY Supplement 05/07/25
acid 0.8 mg tablet (Opal-Greg)
nifedipine 30 mg tablet,extended 30 mg PO DAILY Blood Pressure 05/08/25
release
--- NOTE | 2025-05-10 15:23 | CM ---
F/U: Patient is getting MRI of the brain, MRV of the brain, otherwise Independent with ADL's, came from Home. Case Management to follow. PLAN: Anticipate Home No Needs.
--- NOTE | 2025-05-10 18:19 | PTCARENOTE ---
Patient due to be drained at 22:01 d/t 4hr dwell time. TT sent to Dr Hopkins to make her aware since order states 7p-7a to keep dry. Patient had total of 3 treatments today.
[2025-05-10] MEDS: DIOVAN 80 MG PO (21:28)
[2025-05-10] MEDS: ZOFRAN 4 MG IV (22:43)
[2025-05-11] VITALS (9 sets, daily range): BP systolic 99–133; BP diastolic 73–96; BMI 18.1
--- NOTE | 2025-05-11 03:13 | PTCARENOTE ---
Assumed care for patient overnight. Pt AAOx3, pleasant. Dr. Hopkins changed order for PD timing to 7a-10p. Pt drained at 2215 see worklist. Pt to be dry until 0700. Pt c/o severe cramping in abdomen during and after draining. Pt medicated w/ PRN
Tylenol initially for headache. Pt attempted to eat a sandwich, pt then c/o severe nausea, PRN Zofran administered see JUL. PD site dressing replaced. Pt on RA, 99%, although experiencing mild dyspnea w/ exertion. HR up to 140s while ambulating.
Heparin gtt cont. PTT in AM. Significant other staying the night. Call jimenez within reach.
[2025-05-11] MEDS: HEPARIN 25000 UNITS/250 ML IV ×2 (04:49→18:15)
[2025-05-11 05:24] LABS: Hematocrit 33.1 % (37.0-47.0); Hemoglobin 10.7 g/dL (12.0-16.0); Mean Corp Hgb Conc. 32.3 g/dL (33.0-37.0); Mean Corpuscular Volume 91.4 fL (81.0-99.0); Platelet Count 381 10^3/uL (130-400); Red Cell Dist. Width 14.3 % (11.5-14.5)
[2025-05-11 05:32] LABS: APTT 64.9 Sec (23.4-35.0)
[2025-05-11 05:49] LABS: Blood Urea Nitrogen 46 mg/dl (7-17); Calcium 7.9 mg/dl (8.4-10.2); Carbon Dioxide 22 mmol/L (22-30); Chloride 102 mmol/L (98-107); Estimated Creatinine Clearance 9 ml/min; Glucose 77 mg/dl (70-99); Potassium 4.0 mmol/L (3.5-5.1); Sodium 134 mmol/L (135-145); eGFR 7.24
[2025-05-11] MEDS: HEPARIN 2200 UNITS IV (05:59)
--- NOTE | 2025-05-11 08:20 | W.PN.NEPH.PH ---
Today's Communication / Plan
-
PD orders provided
I have no solutions for her cramping
Assessment/Plan
-
Impression:
ESRD (Lupus nephritis)/PD
Presentation with shortness of breath dyspnea on exertion
Hypertension
History of PE (patient had this last August and was on Eliquis for 3 months)
Anemia
Metabolic acidosis
Plan:
PD continues 2L q4hr exchange, all 1.5% durine day
lytes balanced
flow sheets noted, even balance but she also has good UOP weights stable
c/o sig pain with drain seem chronic(typically on tidal in cycler at home), PD fluid with out infection
she seem euvolemic, PD from 7am and 7pm and dry during night
met acidosis seem more primary resp alkalosis driven
Maintains on prednisone and mycophenolate in setting of lupus nephritis
v/q scan mismatch , on heparin gtt
s/p MRI and MRV today, with typeII agents of gadolinium risk of NSF is very low
hypocalcemia-normal vit D level
-
-
Date of Service: May 11, 2025
CC / HPI / ROS
-
Chief Complaint:
ESRD on PD
History of Present Illness:
WBC normal, hb stable 10.7
k normal, bicarb improving to 20, no labs today
Review of Systems:
c/o abd pain with PD seem chronic
no fever
Labs
-
Labs:
WBC 6.1 10^3/uL (4.8-10.8) 05/11/25 05:04
RBC 3.62 10^6/uL (4.20-5.40) L 05/11/25 05:04
Hgb 10.7 g/dL (12.0-16.0) L 05/11/25 05:04
Hct 33.1 % (37.0-47.0) L 05/11/25 05:04
Plt Count 381 10^3/uL (130-400) 05/11/25 05:04
Sodium 134 mmol/L (135-145) L 05/11/25 05:04
Potassium 4.0 mmol/L (3.5-5.1) 05/11/25 05:04
Chloride 102 mmol/L (98-107) 05/11/25 05:04
Carbon Dioxide 22 mmol/L (22-30) 05/11/25 05:04
BUN 46 mg/dl (7-17) H 05/11/25 05:04
Creatinine 6.9 mg/dL (0.6-1.0) H* 05/11/25 05:04
eGFR 7.24 05/11/25 05:04
Glucose 77 mg/dl (70-99) 05/11/25 05:04
Calcium 7.9 mg/dl (8.4-10.2) L 05/11/25 05:04
Albumin 3.8 g/dl (3.5-5.0) 05/07/25 18:09
Physical Exam
-
Vital Signs:
Vital Signs
Temp Pulse Resp BP Pulse Ox
97.6 F 83 10 110/80 99
05/11/25 03:40 05/11/25 06:00 05/10/25 12:36 05/11/25 05:02 05/11/25 02:54
Cardiovascular:: Regular rate and rhythm
Respiratory:: Bilateral: CTA (anteriorly)
Lung Excursion:: Normal
Abdomen:: Soft and Tender (gen)
Extremity Edema:: None: Bilateral:
Can Catheter: No
[2025-05-11] MEDS: BUMEX 2 MG PO ×3 (08:26→21:10)
[2025-05-11] MEDS: MYFORTIC DELAYED REL. 360 MG PO ×2 (08:26→21:11)
[2025-05-11] MEDS: DELTASONE 5 MG PO (08:27)
[2025-05-11] MEDS: COREG PO (08:27)
[2025-05-11] MEDS: NEPHROCAP 1 CAPSULE PO (08:27)
[2025-05-11] MEDS: KCL 10 MEQ PO (08:27)
[2025-05-11] MEDS: PROCARDIA XL (EXTENDED RELEASE) 60 MG PO (08:27)
[2025-05-11] MEDS: TYLENOL 1000 MG PO ×2 (08:33→17:13)
[2025-05-11] MEDS: COLACE 100 MG PO ×2 (08:33→21:18)
--- NOTE | 2025-05-11 09:25 | PTCARENOTE ---
Pt for IR today. Order received to hold heparin gtt- see intervention.
--- NOTE | 2025-05-11 10:21 | W.PN.PUL.V3 ---
Today's Communication / Plan
-
Wean oxygen
Headache improved
Considering lumbar puncture
Heparin drip-eventual conversion to oral anticoagulant
Pulmonary will sign off-please call with questions
Assessment
-
40-year-old nonsmoking female with end-stage renal disease due to lupus nephritis, on peritoneal dialysis with history of DVT in 2012 while taking oral contraceptives and recent pulmonary embolism August 2024, treated at [facility], completed 3 months of
Eliquis felt that have been provoked and now presents off anticoagulation with shortness of breath and positive VQ scan-pulmonary consulted for possible pulmonary embolism 05/09/25.
Shortness of breath.
Recent upper respiratory tract infection.
Headache.
Leukopenia.
Normocytic anemia-hemoglobin 10.3
Conditions present prior to admission:
ESRD secondary to lupus nephritis, on peritoneal dialysis. .
Chronic immunosuppression-lupus
DVT 2012 while on oral contraceptives.
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
Hypertension.
Plan
Etiology of increased shortness of breath, suspected related to upper respiratory tract infection.
[facility] V/Q scan from August as well as CT [facility] was reviewed which revealed a pneumonia and left upper lobe mismatch defect similar to current mismatch V/Q defect-suspect she has chronic clot in acute clot
Supplemental oxygen as needed-weaned to room air-96%
Potentially check rest and exercise oximetry
Inhalers/nebulizers if needed-currently not bronchospastic.
Suspect chronic left upper lobe pulmonary embolism-status post 3 months Eliquis-no imaging obtained thereafter to ensure clearing-saw hematology
Hematology evaluation locally ongoing
Continue anticoagulation-On heparin drip- Eventually convert to oral anticoagulant
Convert to oral anticoagulants-possibly warfarin this patient wants kidney transplant.
Cultures reviewed
Blood cultures-negative
Observe off antibiotics.
Infectious disease findings reviewed
Monitor headache
MRI/MRA brain-no significant intracranial abnormalities
Lumbar puncture being considered
Nephrology following-reviewed with them
Peritoneal dialysis as needed..
Mycophenolate and prednisone continued
Monitor headache-improving
Monitor hemoglobin-stable
Transfuse if needed
DVT prophylaxis-on anticoagulation.
Nutrition
Early mobilization.
Stable respiratory status-increase activity, assess for discharge supplemental oxygen needs, chronic anticoagulation and outpatient pulmonary follow-up at [facility]
Diagnostic data:
Chest x-ray 05/07/25-NAD.
Lower extremity ultrasound 05/07/25-no evidence for DVT.
VQ scan 05/08/25-mismatched peripheral perfusion defect, apical segment left upper lobe-intermediate probability
VQ scan August [id number] left upper lobe mismatch defect.
CT chest August [id number] of pneumonia and mucus was noted
Subjective Data
-
Date of Service:
Date of Service: May 11, 2025
Chief Complaint: Pulmonary Follow Up, Dyspnea Follow Up and VTE Follow Up
Subjective:
Headache improved, still has some dyspnea on exertion, no chest pain or abdominal pain
Review of Systems
HEENT: Other (Per HPI)
Objective Data
Data Reviewed
Vital Signs / I&O:
Vital Signs
Temp Pulse Resp BP Pulse Ox
97.9 F 83 10 118/91 96
05/11/25 07:38 05/11/25 06:00 05/10/25 12:36 05/11/25 08:27 05/11/25 08:39
Intake and Output
05/10/25 05/11/25 05/12/25
06:59 06:59 06:59
Intake Total 940 / 940 2200 / 2200
Output Total 1000 / 1000 500 / 500
Balance -60 / -60 1700 / 1700
SaO2: 96
Physical Exam
General: Respiratory Distress (n) and Comfortable
HEENT: Normocephalic and Moist Mucous Membranes
Cardiovascular: Regular Rhythm
Respiratory: Wheeze (n), Crackles (n), Rhonchi, Non-Labored Respirations, Accessory Resp Muscle Use (n) and Stridor (n)
GI: Soft, Non Distended and Non Tender
Neurology: Awake, Alert and No Motor Deficits
Skin: Warm, Good Color, Cyanosis (n), Jaundice (n) and Rash (n)
Labs/Micro/Reports
Lab Data
05/11/25 05:04
05/11/25 05:04
Laboratory Results
05/10/25 05/10/25 05/10/25
13:00 13:40 19:40
APTT 79.7 H Cancelled Cancelled
05/11/25
05:04
APTT 64.9 H
Microbiology
05/09/25 15:18 Blood/Venous Blood Culture - Preliminary
No Growth in 24 hours- Final report to follow
05/09/25 13:55 Blood/Venous Blood Culture - Preliminary
No Growth in 24 hours- Final report to follow
05/08/25 10:34 Peritoneal Fluid Body Fluid Culture - Preliminary
No Growth After 48 Hours
05/08/25 10:34 Peritoneal Fluid Gram Stain - Preliminary
--- NOTE | 2025-05-11 10:35 | W.PN.ID1 ---
Date of Service
Date of Service: May 11, 2025
Today's Communication
Continue off antibiotics
Assessment / Plan
Headache; improved
Photophobia; improved
Neck discomfort; improved
Lupus nephritis
ESRD�PD
Hx PE (08/2024)
Hypertension
Recommendations:
Normal white count without left shift suggests an infectious process somewhat less likely.
Continue off antibiotics.
Brain MRI/MRV without intracranial abnormalities. LP as per Neurology.
����������������������������������������������������������
Chief Complaint
-: Fever
Subjective / Review of Systems
Patient seen and examined. Reports feeling improved today. Less neck discomfort. Less headache.
Review of Systems: No Fever
Vital Signs / Physical Exam
Vital Signs
Vital Signs
Temp Pulse Resp BP Pulse Ox
97.9 F 83 10 118/91 96
05/11/25 07:38 05/11/25 06:00 05/10/25 12:36 05/11/25 08:27 05/11/25 10:21
Physical Exam
Constitutional: No Acute Distress, Comfortable and Non-toxic
Eyes: Sclera Anicteric
Cardiovascular: S1/S2; Negative S3/S4
Pulmonary: Non Labored
Gastrointestinal: Soft, Tender, Non Distended and Normal Bowel Sounds
Neurological: Awake and Alert; Negative Meningeal Signs
Psychological: Calm
Objective Data
Lab Data
Lab Results
05/11/25 05:04
05/11/25 05:04
ESR 16 mm/hour (0-20) 05/09/25 06:18
APTT 64.9 Sec (23.4-35.0) H 05/11/25 05:04
Estimated Creat Clear 9 ml/min 05/11/25 05:04
Total Bilirubin 0.4 mg/dl (0.2-1.3) 05/07/25 18:09
AST 24 U/L (14-36) 05/07/25 18:09
ALT 13 U/L (0-35) 05/07/25 18:09
Alkaline Phosphatase 66 U/L (38-126) 05/07/25 18:09
C-Reactive Protein < 5.00 mg/L (0.0-10.00) 05/09/25 06:18
Most recent labs reviewed.
Micro Results:
05/09/25 15:18 Blood Culture - Preliminary
Blood/Venous No Growth in 24 hours- Final report to follow
05/09/25 13:55 Blood Culture - Preliminary
Blood/Venous No Growth in 24 hours- Final report to follow
05/08/25 10:34 Body Fluid Culture - Preliminary
Peritoneal Fluid No Growth After 48 Hours
Gram Stain - Preliminary
05/07/25 18:09 Influenza Types A & B (TASH) - Final
Nasal Swab Negative for Influenza A & B, NAAT
Negative results must be combined with clinical observations
and patient history.
Nucleic Acid Amplification test (NAAT)performed on the
[employer] platform.
Imaging:
05/11/2025 Brain MRI /MRV: No acute intracranial abnormality noted. No focal hemodynamically significant stenosis, aneurysm or occlusion. No dural venous sinus thrombosis or stenosis. Caceres-sinusitis, worst involving the right sphenoid sinus.
05/07/2025 duplex ultrasound lower extremity: no sonographic evidence for lower extremity venous thrombosis.
05/07/2025 CXR (2 view): no evidence of active cardiopulmonary disease
Care Review
Plan reviewed with: Physician (Nephrology, Neurology)
--- NOTE | 2025-05-11 12:46 | W.PN.HOSP.TC ---
Today's Communication/Plan
-
LP today
Hold Heparin for LP
Assessment / Plan
Assessment / Plan
Constellation of what looks like infectious symptoms
Fever, cough, shortness of breath, diarrhea, headache and neck stiffness
I doubt that the left upper lobe thrombus on VQ scan explains all her symptoms.
She is immunocompromised-on immunosuppressive agents for lupus
She in the past had a pneumonia diagnosis and her last chest CT showed improving tree-in-bud opacities in the lungs.
Aspirate from peritoneal dialysis shows no evidence of SBP.
Flu and COVID-negative.
Chest x-ray no obvious infiltrates
Patient was granulocytopenia with left shift on admission
Appreciate ID input.
Consulted neurology as well to rule out any intracranial process.
MRI of the brain and MRV of the head shows no evidence of acute abnormality.
With meningismus will obtain LP to rule out meningitis
Trial of antimigraine's medication-Benadryl with Compazine was helpful -repeat as needed.
Shortness of Breath / Dyspnea on Exertion
VQ scan concerning for left upper lobe PE with mismatch.
History of PE August 2024 status post 3 months of DOAC
-Patient is unable to have CT scan due to ESRD on PD
- Echo shows normal EF and no evidence of pulmonary hypertension and so doubt CTEPH
- Lung Perfusion Scan from August with medium sized wedge shaped perfusion defect extending to the periphery in the left upper lobe
- O2 ok
- Unclear if the left upper lobe thrombus is chronic, inadequately treated, recurrent
- Continue with IV heparin and consider switching to oral anticoagulation
- Antiphospholipid antibody testing pending
- Pulmonary and hematology follow
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
-Consulted Nephrology
-Continue Bumex for volume management
-Continue mycophenolate and prednisone
- CW PD
Benign Hypertension
under goal now
-Continue Coreg , Valsartan but increased dose of Nifedipine
Code Status: Full Code
Discussed with RN
DW Neuro today
Total time spent on today's encounter was 52 minutes which included time spent in counseling the patient/family regarding diagnosis and treatment plan as listed above, goals of care, and symptom management. Case was discussed with nursing staff,
specialists, and care coordinators/case management. All labs and imaging personally reviewed by me. Remainder the time spent in detailed review of previous records, lab data, imaging, and other medical provider documentation.
Portions of this chart may have been created with voice recognition software. Occasional wrong word or 'sound alike' substitutions may have occurred due to the inherent limitations of voice recognition software.
Anticipated Discharge: > 48 hours
Subjective/Interval History
-
Date of Service: May 11, 2025
Patient is feeling better with her headache and light sensitivity. Her neck stiffness is there but is better.
Denies any fever or chills.
Feeling improved overall as well.
Denies any chest pain but still has some exertional dyspnea.
Tolerating diet.
Objective Data
-
Labs:
Laboratory Results
05/11/25 05/11/25
05:04 12:00
WBC 6.1
Hgb 10.7 L
Hct 33.1 L
Plt Count 381
PT Pending
INR Pending
APTT 64.9 H Cancelled
Sodium 134 L
Potassium 4.0
Chloride 102
Carbon Dioxide 22
BUN 46 H
Creatinine 6.9 H*
Glucose 77
Calcium 7.9 L
Vital Signs:
Vital Signs
Temp Pulse Resp BP Pulse Ox
98.1 F 80 10 118/91 96
05/11/25 11:37 05/11/25 10:00 05/10/25 12:36 05/11/25 08:27 05/11/25 10:21
I&O
05/10/25 05/11/25 05/12/25
06:59 06:59 06:59
Intake Total 940 / 940 2200 / 2200
Output Total 1000 / 1000 500 / 500
Balance -60 / -60 1700 / 1700
Physical Exam
-
General: No Apparent Distress
HEENT: Moist Mucous Membranes
Respiratory: Clear to Auscultation and Non Labored Respirations; Negative Accessory Resp Muscle Use
Cardiac: Regular Rhythm and S1/S2
GI: Soft, Nontender and Other (PD cath in place)
Neuro: AO x 3, No Motor Deficits and Other (positive neck stiffness -improved -able to touch chin to chest )
Psych: Calm; Negative Confused
Data Reviewed
-
MRI: Report Reviewed by me (MRI brain and MRV)
Labs: Labs Reviewed by me
[2025-05-11 12:56] LABS: INR 1.01; PT 13.4 Sec (11.4-14.6)
--- NOTE | 2025-05-11 13:48 | CM ---
F/U: Patient has fever, cough, shortness of breath, diarrhea, headache and neck stiffness, thus getting an LP today. PLAN: TBD, Home PT vs. SNF.
--- NOTE | 2025-05-11 15:53 | PTCARENOTE ---
Pt to and from IR. No orders received to resume heparin gtt at this time; awaiting further orders.
[2025-05-11 16:27] LABS: CSF Color Colorless
[2025-05-11 16:28] LABS: Red Cell Count/CSF 26 mm^3; White Cell Count/CSF 0 mm^3 (0-5)
--- NOTE | 2025-05-11 17:32 | PTCARENOTE ---
Order received to draw PTT and resume Heparin gtt based on results without bolus. PTT drawn and sent.
[2025-05-11 17:50] LABS: APTT 30.1 Sec (23.4-35.0)
--- NOTE | 2025-05-11 18:19 | W.PN.NEURO.1 ---
Today's Communication / Plan
-
MRI of the brain with and without contrast did not show an acute intracranial abnormality.
MRV of the head did not show hemodynamically significant stenosis, aneurysm or occlusion and it also showed no dural venous sinus thrombosis or stenosis.
Today, the patient states that she feels better and headache is under control. She also says that the neck stiffness is present but it has decreased since yesterday. She endorses phono/photophobia that has significantly improved today as compared
to yesterday.
Neurologic examination: The patient is alert and oriented x 3, speech is clear, the cranial nerves II to XII grossly intact, the motor strength is antigravity x 4, sensation is grossly intact bilaterally and there is no limb ataxia seen. The
patient does not have signs of meningeal irritation today.
. ID has recommended that due to normal white cell count without left shift an infectious process is somewhat less likely. Continue to hold antibiotics.
. She is immunocompromised-on immunosuppressive agents for lupus
. Lumbar puncture
. Continue heparin drip and later transition to oral anticoagulant. VQ scan 05/08/25 is suggestive of pulmonary embolism, patient was placed on a heparin drip.
Subjective/Objective
Subjective Data
Date of Service: May 11, 2025
Patient was seen and examined today.
This is a 40-year-old right-handed female who has presented to the hospital on 05/07/25 with report of dyspnea, cough, and persistent diarrhea. Patient reports that since 04/25/25 she has felt unwell. When she sits up or stands up, she becomes dizzy.
She also notes of having severe diarrhea, a fever of 102.8 around Thanksgiving, and dyspnea. She developed severe neck pain/stiffness and a posterior headache that radiated up to the top of her head. She describe this as a pressure sensation. She
has intermittent nausea, denies any vomiting. VQ scan 05/08/25 is suggestive of pulmonary embolism, patient was placed on a heparin drip.
MRI of the brain with and without contrast did not show an acute intracranial abnormality.
MRV of the head did not show hemodynamically significant stenosis, aneurysm or occlusion and it also showed no dural venous sinus thrombosis or stenosis.
Today, the patient states that she feels better and headache is under control. She also says that the neck stiffness is present but it has decreased since yesterday. She endorses phono/photophobia that has significantly improved today as compared
to yesterday.
Neurologic examination: The patient is alert and oriented x 3, speech is clear, the cranial nerves II to XII grossly intact, the motor strength is antigravity x 4, sensation is grossly intact bilaterally and there is no limb ataxia seen. The
patient does not have signs of meningeal irritation today.
. ID has recommended that due to normal white cell count without left shift an infectious process is somewhat less likely. Continue to hold antibiotics.
. She is immunocompromised-on immunosuppressive agents for lupus
. Lumbar puncture
. Continue heparin drip and later transition to oral anticoagulant. VQ scan 05/08/25 is suggestive of pulmonary embolism, patient was placed on a heparin drip.
Objective Data
Vital Signs
Temp Pulse Resp BP Pulse Ox
36.7 C 93 17 126/95 98
05/11/25 15:07 05/11/25 18:00 05/11/25 15:09 05/11/25 17:09 05/11/25 15:01
Lab Results
05/11/25 05:04
05/11/25 05:04
PT 13.4 Sec (11.4-14.6) 05/11/25 05:04
INR 1.01 05/11/25 05:04
APTT 30.1 Sec (23.4-35.0) 05/11/25 17:20
Sodium 134 mmol/L (135-145) L 05/11/25 05:04
Potassium 4.0 mmol/L (3.5-5.1) 05/11/25 05:04
BUN 46 mg/dl (7-17) H 05/11/25 05:04
Glucose 77 mg/dl (70-99) 05/11/25 05:04
Calcium 7.9 mg/dl (8.4-10.2) L 05/11/25 05:04
Patient Allergies
infliximab (From Remicade) Allergy (Verified 05/07/25 18:00)
Anaphylaxis
Penicillins Allergy (Verified 05/07/25 18:00)
Hives
Medications
-
Active Medications
Generic Name Dose Route Start Last Admin
Trade Name Freq PRN Reason Stop Dose Admin
Acetaminophen 1,000 mg 05/09/25 15:42 05/11/25 17:13
Acetaminophen 500 Mg Tablet PO 06/06/25 15:41 1,000 mg
Q6HPRN PRN Administration
mild pain /fever >100.4
Bumetanide 2 mg 05/08/25 08:00 05/11/25 17:12
Bumetanide 1 Mg Tablet PO 06/05/25 07:59 2 mg
TID JETT Administration
Carvedilol 6.25 mg 05/08/25 08:00 05/11/25 08:27
Carvedilol 6.25 Mg Tablet PO 06/05/25 07:59 Not Given
BID JETT
Docusate Sodium 100 mg 05/08/25 02:17 05/11/25 08:33
Docusate Sodium 100 Mg Capsule PO 06/05/25 02:16 100 mg
BIDPRN PRN Administration
constipation
Heparin Sodium 4,500 units 05/08/25 02:00
Heparin 80 Units/Kg Iv Rebolus IV 06/05/25 01:59
PRN PRN
PTT < OR = 64 seconds
Heparin Sodium 2,200 units 05/08/25 02:00 05/11/25 05:59
Heparin 40 Units/Kg Iv Rebolus IV 06/05/25 01:59 2,200 units
PRN PRN Administration
PTT = 64.1 to 72.9 seconds
Hydralazine HCl 5 mg 05/08/25 16:21 05/09/25 18:17
Hydralazine 20 Mg/Ml Vial IV 06/05/25 16:20 5 mg
Q6HPRN PRN Administration
sbp>160 or dbp>100
Heparin Sodium 25,000 units in 250 mls @ 0 mls/hr 05/10/25 01:45 05/11/25 18:15
Heparin 99264 Units/250 Ml IV 250 mls
PER PROTOCOL JETT Administration
Protocol
Per Protocol
Mycophenolate Sodium 360 mg 05/08/25 08:00 05/11/25 08:26
Mycophenolic Acid [address] Tablet (Non Form) PO 360 mg
BID JETT Administration
Nifedipine 60 mg 05/09/25 08:00 05/11/25 08:27
Nifedipine 60 Mg Extended Release Tablet PO 06/06/25 07:59 60 mg
DAILY JETT Administration
Ondansetron HCl 4 mg 05/09/25 19:25 05/10/25 22:43
Ondansetron 4 Mg/2 Ml Vial IV 06/06/25 19:24 4 mg
Q6HPRN PRN Administration
nausea/vomiting
Polyethylene Glycol 17 grams 05/09/25 16:19 05/09/25 17:01
Polyethylene Glycol Powder 17 Grams Packet PO 06/06/25 16:18 17 grams
DAILYPRN PRN Administration
constipation, use second
Potassium Chloride 10 meq 05/08/25 08:00 05/11/25 08:27
Potassium Chloride 10 Meq Extended Release Tablet PO 06/05/25 07:59 10 meq
DAILY JETT Administration
Prednisone 5 mg 05/08/25 08:00 05/11/25 08:27
Prednisone 5 Mg Tablet PO 06/05/25 07:59 5 mg
DAILY JETT Administration
Sodium Chloride 0 flush 05/08/25 03:00
Sodium Chloride 0.9% (Flush) Syringe IV 06/05/25 02:59
PER PROTOCOL JETT
Valsartan 80 mg 05/08/25 22:00 05/10/25 21:28
Valsartan 80 Mg Tablet PO 06/05/25 21:59 80 mg
HS JETT Administration
Vitamin B Complex/Vit C/Folic Acid 1 capsule 05/08/25 08:00 05/11/25 08:27
Renal Cap (Nephrocap) Capsule PO 06/05/25 07:59 1 capsule
DAILY JETT Administration
Home Medications
�Medication �Instructions �Recorded
bumetanide 2 mg tablet 2 mg PO TID Fluid 05/07/25
Retention/Swelling
carvedilol 6.25 mg tablet (Coreg) 6.25 mg PO BID Blood Pressure 05/07/25
cholecalciferol (vitamin D3) 25 50 mcg PO DAILY Supplement 05/07/25
mcg (1,000 unit) tablet (Vitamin
D3)
mycophenolate sodium 360 mg 360 mg PO BID Lupus 05/07/25
tablet,delayed release
nifedipine 30 mg tablet,extended 30 mg PO QPM Blood Pressure 05/07/25
release
nifedipine 90 mg tablet,extended 90 mg PO DAILY Blood Pressure 05/07/25
release
potassium chloride 10 mEq 10 meq PO DAILY Supplement 05/07/25
tablet,extended release
prednisone 5 mg tablet 5 mg PO DAILY Lupus 05/07/25
valsartan 80 mg tablet 80 mg PO HS Blood Pressure 05/07/25
vitamin B complex-vitamin C-folic 1 tab PO DAILY Supplement 05/07/25
acid 0.8 mg tablet (Opal-Greg)
nifedipine 30 mg tablet,extended 30 mg PO DAILY Blood Pressure 05/08/25
release
--- NOTE | 2025-05-11 18:30 | PTCARENOTE ---
Heparin gtt resumed- see intervention.
[2025-05-11] MEDS: DIOVAN 80 MG PO (21:10)
[2025-05-11] MEDS: COREG 6.25 MG PO (21:11)
[2025-05-11 21:55] LABS: Beta-2-Glycoprotein I Ab. IgG <10 SGU (<=20); Beta-2-Glycoprotein I Ab. IgM <10 SMU (<=20)
[2025-05-12] VITALS (7 sets, daily range): BP systolic 114–139; BP diastolic 79–104; BMI 18.2
[2025-05-12] MEDS: TYLENOL 1000 MG PO ×4 (00:25→21:10)
--- NOTE | 2025-05-12 00:35 | PTCARENOTE ---
Heparin gtt cont, see worklist. Pt PD drained and to be dry overnight. Pt states she is feeling better tonight. Pt has mild headache, however photosensitivity improving, PRN Tylenol administered, see MAR. Lumbar puncture site intact. PD cath site
cleansed and redressed. Pt requesting PRN Colace as she has not had a BM during daytime. Call jimenez within reach.
[2025-05-12 00:45] LABS: APTT 72.0 Sec (23.4-35.0)
[2025-05-12] MEDS: HEPARIN 2200 UNITS IV (01:19)
[2025-05-12 01:59] LABS: Phosphatidylserine Ab, IgA 0 APS (0-19); Phosphatidylserine Ab, IgG 0 GPS (0-15); Phosphatidylserine Ab, IgM 0 MPS (0-21)
[2025-05-12 02:05] LABS: Beta-2-Glycoprotein I Ab. IgA <10 SAU (<=20)
[2025-05-12] MEDS: MIRALAX 17 GRAMS PO (02:47)
[2025-05-12 07:15] LABS: Hematocrit 32.1 % (37.0-47.0); Hemoglobin 10.4 g/dL (12.0-16.0); Mean Corp Hgb Conc. 32.4 g/dL (33.0-37.0); Mean Corpuscular Volume 91.2 fL (81.0-99.0); Platelet Count 342 10^3/uL (130-400); Red Cell Dist. Width 13.9 % (11.5-14.5)
[2025-05-12 08:06] LABS: APTT 154.7 Sec (23.4-35.0)
--- NOTE | 2025-05-12 08:28 | W.PN.ID1 ---
Date of Service
Date of Service: May 12, 2025
Today's Communication
Sign off
Assessment / Plan
Headache; improved
Photophobia; improved
Neck discomfort; improved
Lupus nephritis
ESRD�PD
Hx PE (08/2024)
Hypertension
Recommendations:
LP results reviewed. CSF without pleocytosis.
No evidence of ongoing infection.
Continue off antibiotics.
Brain MRI/MRV without intracranial abnormalities.
Little more to offer from a Infectious Diseases standpoint.
Will see again at your request.
����������������������������������������������������������
Chief Complaint
-: Fever
Subjective / Review of Systems
Patient seen and examined. Reports improvement in headache. Notes ongoing diffuse abdominal discomfort.
Vital Signs / Physical Exam
Vital Signs
Vital Signs
Temp Pulse Resp BP Pulse Ox
97.8 F 85 17 134/104 98
05/12/25 07:20 05/12/25 04:57 05/11/25 15:09 05/12/25 04:57 05/12/25 02:32
Physical Exam
Constitutional: No Acute Distress, Comfortable and Non-toxic
Eyes: Sclera Anicteric
Pulmonary: Non Labored
Gastrointestinal: Soft, Tender, Non Distended and Normal Bowel Sounds
Neurological: Awake and Alert; Negative Meningeal Signs
Psychological: Calm
Objective Data
Lab Data
Lab Results
05/12/25 07:09
05/11/25 05:04
ESR 16 mm/hour (0-20) 05/09/25 06:18
PT 13.4 Sec (11.4-14.6) 05/11/25 05:04
INR 1.01 05/11/25 05:04
APTT 154.7 Sec (23.4-35.0) H* 05/12/25 07:09
Estimated Creat Clear 9 ml/min 05/11/25 05:04
Total Bilirubin 0.4 mg/dl (0.2-1.3) 05/07/25 18:09
AST 24 U/L (14-36) 05/07/25 18:09
ALT 13 U/L (0-35) 05/07/25 18:09
Alkaline Phosphatase 66 U/L (38-126) 05/07/25 18:09
C-Reactive Protein < 5.00 mg/L (0.0-10.00) 05/09/25 06:18
Most recent labs reviewed.
Micro Results:
05/11/25 14:55 Meningitis/Encephalitis Panel (PCR) - Final
Csf
05/11/25 14:55 CSF Culture - Pending
Csf Gram Stain - Preliminary
05/09/25 15:18 Blood Culture - Preliminary
Blood/Venous No Growth in 48 hours- Final report to follow
05/09/25 13:55 Blood Culture - Preliminary
Blood/Venous No Growth in 48 hours- Final report to follow
05/08/25 10:34 Body Fluid Culture - Final
Peritoneal Fluid No Growth After 72 Hours
Gram Stain - Final
05/07/25 18:09 Influenza Types A & B (TASH) - Final
Nasal Swab Negative for Influenza A & B, NAAT
Negative results must be combined with clinical observations
and patient history.
Nucleic Acid Amplification test (NAAT)performed on the
[employer] platform.
Imaging:
05/11/2025 Brain MRI /MRV: No acute intracranial abnormality noted. No focal hemodynamically significant stenosis, aneurysm or occlusion. No dural venous sinus thrombosis or stenosis. Caceres-sinusitis, worst involving the right sphenoid sinus.
05/07/2025 duplex ultrasound lower extremity: no sonographic evidence for lower extremity venous thrombosis.
05/07/2025 CXR (2 view): no evidence of active cardiopulmonary disease
Care Review
Plan reviewed with: Physician (Hospitalist; Nephrology)
--- NOTE | 2025-05-12 08:39 | W.PN.NEPH.PH ---
Today's Communication / Plan
-
PD orders provided
Possible discharge today
Assessment/Plan
-
Impression:
ESRD (Lupus nephritis)/PD
Presentation with shortness of breath dyspnea on exertion
Hypertension
History of PE (patient had this last August and was on Eliquis for 3 months)
Anemia
Metabolic acidosis
Plan:
PD continues 2L q4hr exchange, all 1.5% durine day
lytes balanced
flow sheets noted, even balance but she also has good UOP weights stable
c/o sig pain with drain seem chronic(typically on tidal in cycler at home), PD fluid with out infection
she seem euvolemic, PD from 7am and 7pm and dry during night
met acidosis seem more primary resp alkalosis driven
Maintains on prednisone and mycophenolate in setting of lupus nephritis
v/q scan mismatch , on heparin gtt
CSF negative for meningitis in setting of headache and photophobia
MRI workup 9
Possible discharge today
-
-
Date of Service: May 12, 2025
CC / HPI / ROS
-
Chief Complaint:
ESRD on PD
History of Present Illness:
On PD for ESRD
k normal, bicarb improving to 20, no labs today
Review of Systems:
c/o abd pain with PD seem chronic
no fever
Labs
-
Labs:
WBC 6.4 10^3/uL (4.8-10.8) 05/12/25 07:09
RBC 3.52 10^6/uL (4.20-5.40) L 05/12/25 07:09
Hgb 10.4 g/dL (12.0-16.0) L 05/12/25 07:09
Hct 32.1 % (37.0-47.0) L 05/12/25 07:09
Plt Count 342 10^3/uL (130-400) 05/12/25 07:09
Sodium 134 mmol/L (135-145) L 05/11/25 05:04
Potassium 4.0 mmol/L (3.5-5.1) 05/11/25 05:04
Chloride 102 mmol/L (98-107) 05/11/25 05:04
Carbon Dioxide 22 mmol/L (22-30) 05/11/25 05:04
BUN 46 mg/dl (7-17) H 05/11/25 05:04
Creatinine 6.9 mg/dL (0.6-1.0) H* 05/11/25 05:04
eGFR 7.24 05/11/25 05:04
Glucose 77 mg/dl (70-99) 05/11/25 05:04
Calcium 7.9 mg/dl (8.4-10.2) L 05/11/25 05:04
Albumin 3.8 g/dl (3.5-5.0) 05/07/25 18:09
Physical Exam
-
Vital Signs:
Vital Signs
Temp Pulse Resp BP Pulse Ox
97.8 F 85 17 134/104 98
05/12/25 07:20 05/12/25 04:57 05/11/25 15:09 05/12/25 04:57 05/12/25 02:32
Cardiovascular:: Regular rate and rhythm
Extremity Edema:: None: Bilateral:
[2025-05-12] MEDS: MYFORTIC DELAYED REL. 360 MG PO ×2 (09:36→20:49)
[2025-05-12] MEDS: DELTASONE 5 MG PO (09:37)
[2025-05-12] MEDS: PROCARDIA XL (EXTENDED RELEASE) 60 MG PO (09:37)
[2025-05-12] MEDS: KCL 10 MEQ PO (09:38)
[2025-05-12] MEDS: COREG 6.25 MG PO ×2 (09:39→20:49)
[2025-05-12] MEDS: BUMEX 2 MG PO ×3 (09:39→20:48)
[2025-05-12] MEDS: NEPHROCAP 1 CAPSULE PO (09:40)
--- NOTE | 2025-05-12 11:49 | W.PN.HOSP.TC ---
Today's Communication/Plan
-
Transfer to [facility]
Cw current tx
DC planning
Assessment / Plan
Assessment / Plan
Constellation of what looks like infectious symptoms
Fever, cough, shortness of breath, diarrhea, headache and neck stiffness
I doubt that the left upper lobe thrombus on VQ scan explains all her symptoms.
She is immunocompromised-on immunosuppressive agents for lupus
She in the past had a pneumonia diagnosis and her last chest CT showed improving tree-in-bud opacities in the lungs.
Aspirate from peritoneal dialysis shows no evidence of SBP.
Flu and COVID-negative.
Chest x-ray no obvious infiltrates
Patient was granulocytopenia with left shift on admission
Appreciate ID input.
Consulted neurology as well to rule out any intracranial process.
MRI of the brain and MRV of the head shows no evidence of acute abnormality.
LP with no suggestion for meningitis
cw Trial of antimigraine's medication for HINOJOSA if needed
Clinically improved
Shortness of Breath / Dyspnea on Exertion
VQ scan concerning for left upper lobe PE with mismatch.
History of PE August 2024 status post 3 months of DOAC
-Patient is unable to have CT scan due to ESRD on PD
- Echo shows normal EF and no evidence of pulmonary hypertension and so doubt CTEPH
- Lung Perfusion Scan from August with medium sized wedge shaped perfusion defect extending to the periphery in the left upper lobe
- O2 ok
- Unclear if the left upper lobe thrombus is chronic, inadequately treated, recurrent
- Continue with IV heparin and consider switching to oral anticoagulation per heme
- Antiphospholipid antibody testing pending
- Pulmonary and hematology follow
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
-Consulted Nephrology
-Continue Bumex for volume management
-Continue mycophenolate and prednisone
- CW PD
Benign Hypertension
under goal now
-Continue Coreg , Valsartan but increased dose of Nifedipine
Code Status: Full Code
Discussed with RN
Portions of this chart may have been created with voice recognition software. Occasional wrong word or 'sound alike' substitutions may have occurred due to the inherent limitations of voice recognition software.
Anticipated Discharge: 24 - 48 hours
Subjective/Interval History
-
Date of Service: May 12, 2025
Feeling improved from headache standpoint. Less photophobia.
No shortness of breath at rest.
Tolerating diet.
No fever or chills.
Objective Data
-
Labs:
Laboratory Results
05/12/25 05/12/25 05/12/25
00:20 07:09 16:00
WBC 6.4
Hgb 10.4 L
Hct 32.1 L
Plt Count 342
APTT 72.0 H 154.7 H* Pending
Vital Signs:
Vital Signs
Temp Pulse Resp BP Pulse Ox
98.1 F 88 17 134/104 98
05/12/25 11:19 05/12/25 08:00 05/11/25 15:09 05/12/25 04:57 05/12/25 02:32
I&O
05/11/25 05/12/25 05/13/25
06:59 06:59 06:59
Intake Total 2200 / 2200 240 / 240
Output Total 500 / 500 350 / 350 400 / 400
Balance 1700 / 1700 -350 / -350 -160 / -160
Physical Exam
-
General: Comfortable
Respiratory: Clear to Auscultation and Non Labored Respirations; Negative Accessory Resp Muscle Use
Cardiac: Regular Rhythm and S1/S2
GI: Soft; Negative Nontender
Neuro: AO x 3 and Other (Neck supple)
Psych: Calm; Negative Confused or Agitated
Data Reviewed
-
Labs: Labs Reviewed by me
--- NOTE | 2025-05-12 13:00 | PTCARENOTE ---
Patient AAX3. PD exchanges as ordered. No exchanges overnight. Patient complaining of HINOJOSA located back of the head, reports pain4-5/10. Medicating with tylenol as ordered. Patient using ice packs for HINOJOSA pain. Appetite fair. Heparin drip
currently at 600units/hr. Last PTT assessment 90.9. Next PTT 2300. VS stable,afebrile. SR on monitor HR 80-90's. HR up to 150 with ambulation. Call jimenez in reach.
[2025-05-12 17:22] LABS: APTT 90.9 Sec (23.4-35.0)
[2025-05-12] MEDS: DIOVAN 80 MG PO (20:49)
[2025-05-12 21:03] LABS: Anticoagulant Med Neutralizati Hepzyme (Not Performed); Neutralized dRVTT Screen Ratio Not Performed (<=1.20); Prothrombin Time 13.8 s (12.0-15.5); dRVTT 1.1 Mix Ratio Not Performed (<=1.20); dRVTT Confirmation Ratio Not Performed (<=1.20); dRVTT Screen Ratio 1.03 (<=1.20)
[2025-05-12 23:22] LABS: APTT 79.0 Sec (23.4-35.0)
[2025-05-13] MEDS: COLACE 100 MG PO ×2 (00:40→21:38)
--- NOTE | 2025-05-13 00:59 | PTCARENOTE ---
Assumed care for patient overnight. Pt aaox3, very pleasant. Family at the bedside at shift change. PD done as per ordered to hold from 7p-7a. Pt to be dry overnight. During drain pt experiencing cramping, PRN Tylenol administered. Photosensitivity
slightly improved. Pt ordered med-surg, pt off the equipment monitor phototypesetting. Heparin gtt cont. PTT therapeutic, next PT in AM. Pt able to make needs known, call jimenez within reach.
[2025-05-13 05:19] VITALS: BMI 18.2
[2025-05-13] MEDS: HEPARIN 25000 UNITS/250 ML IV (05:19)
[2025-05-13 05:51] LABS: Hematocrit 32.5 % (37.0-47.0); Hemoglobin 10.3 g/dL (12.0-16.0); Mean Corp Hgb Conc. 31.7 g/dL (33.0-37.0); Mean Corpuscular Volume 92.9 fL (81.0-99.0); Platelet Count 372 10^3/uL (130-400); Red Cell Dist. Width 13.6 % (11.5-14.5)
[2025-05-13 05:54] VITALS: BP 118/98
[2025-05-13 05:59] LABS: APTT 63.8 Sec (23.4-35.0)
[2025-05-13] MEDS: HEPARIN 4500 UNITS IV (06:08)
[2025-05-13 06:14] LABS: Blood Urea Nitrogen 49 mg/dl (7-17); Calcium 8.0 mg/dl (8.4-10.2); Carbon Dioxide 21 mmol/L (22-30); Chloride 101 mmol/L (98-107); Estimated Creatinine Clearance 7 ml/min; Glucose 79 mg/dl (70-99); Potassium 4.0 mmol/L (3.5-5.1); Sodium 133 mmol/L (135-145); eGFR 5.88
--- NOTE | 2025-05-13 08:39 | W.PN.NEPH.PH ---
Today's Communication / Plan
-
discharge today
PD provided until she is discharged
Assessment/Plan
-
Impression:
ESRD (Lupus nephritis)/PD
Presentation with shortness of breath dyspnea on exertion
Hypertension
History of PE (patient had this last August and was on Eliquis for 3 months)
Anemia
Metabolic acidosis
Plan:
PD continues 2L q4hr exchange, all 1.5% durine day
lytes balanced
flow sheets noted, even balance but she also has good UOP weights stable
c/o sig pain with drain seem chronic(typically on tidal in cycler at home), PD fluid with out infection
she seem euvolemic, PD from 7am and 7pm and dry during night
met acidosis seem more primary resp alkalosis driven
Maintains on prednisone and mycophenolate in setting of lupus nephritis
v/q scan mismatch , on heparin gtt
CSF negative for meningitis in setting of headache and photophobia
MRI workup 9
Possible discharge today
-
-
Date of Service: May 13, 2025
CC / HPI / ROS
-
Chief Complaint:
ESRD on PD
History of Present Illness:
On PD for ESRD
k normal, bicarb improving to 20, no labs today
Review of Systems:
c/o abd pain with PD seem chronic
no fever
Labs
-
Labs:
WBC 6.1 10^3/uL (4.8-10.8) 05/13/25 05:33
RBC 3.50 10^6/uL (4.20-5.40) L 05/13/25 05:33
Hgb 10.3 g/dL (12.0-16.0) L 05/13/25 05:33
Hct 32.5 % (37.0-47.0) L 05/13/25 05:33
Plt Count 372 10^3/uL (130-400) 05/13/25 05:33
Sodium 133 mmol/L (135-145) L 05/13/25 05:33
Potassium 4.0 mmol/L (3.5-5.1) 05/13/25 05:33
Chloride 101 mmol/L (98-107) 05/13/25 05:33
Carbon Dioxide 21 mmol/L (22-30) L 05/13/25 05:33
BUN 49 mg/dl (7-17) H 05/13/25 05:33
Creatinine 8.2 mg/dL (0.6-1.0) H* 05/13/25 05:33
eGFR 5.88 05/13/25 05:33
Glucose 79 mg/dl (70-99) 05/13/25 05:33
Calcium 8.0 mg/dl (8.4-10.2) L 05/13/25 05:33
Albumin 3.8 g/dl (3.5-5.0) 05/07/25 18:09
Physical Exam
-
Vital Signs:
Vital Signs
Temp Pulse Resp BP Pulse Ox
98.1 F 101 20 118/98 98
05/13/25 05:54 05/13/25 05:54 05/13/25 05:54 05/13/25 05:54 05/13/25 05:54
--- NOTE | 2025-05-13 09:03 | W.PN.HOSP.TC ---
Today's Communication/Plan
-
Touch base with marketing services coordinator tomorrow and if no contraindications for Eliquis will transition to Eliquis send discharge home .
If she needed to be on Coumadin then she needs bridging IV heparin.
Neurology to see for antimigraine abortive treatments at home on discharge
Assessment / Plan
Assessment / Plan
Constellation of what looks like infectious symptoms
Fever, cough, shortness of breath, diarrhea, headache and neck stiffness
I doubt that the left upper lobe thrombus on VQ scan explains all her symptoms.
She is immunocompromised-on immunosuppressive agents for lupus
She in the past had a pneumonia diagnosis and her last chest CT showed improving tree-in-bud opacities in the lungs.
Aspirate from peritoneal dialysis shows no evidence of SBP.
Flu and COVID-negative.
Chest x-ray no obvious infiltrates
Patient was granulocytopenia with left shift on admission. Normalized.
Appreciate ID input.
Consulted neurology as well to rule out any intracranial process.
MRI of the brain and MRV of the head shows no evidence of acute abnormality.
LP with no suggestion for meningitis
cw Trial of antimigraine's medication for HINOJOSA if needed
Clinically improved
No plan for further infectious disease evaluation as patient is clinically improved
Shortness of Breath / Dyspnea on Exertion
VQ scan concerning for left upper lobe PE with mismatch.
History of PE August 2024 status post 3 months of DOAC
-Patient is unable to have CT scan due to ESRD on PD
- Echo shows normal EF and no evidence of pulmonary hypertension and so doubt CTEPH
- Lung Perfusion Scan from August with medium sized wedge shaped perfusion defect extending to the periphery in the left upper lobe
- O2 ok
- Unclear if the left upper lobe thrombus is chronic, inadequately treated, recurrent
- Continue with IV heparin and consider switching to oral anticoagulation per heme
- Antiphospholipid antibody testing pending
- Pulmonary and hematology follow
Patient tells me that she is on the transplant list and preferable anticoagulation is Coumadin as she she could immediately get reversed when the organ is available then Laila.
Try to reach her marketing services coordinator at [facility] [phone] but not available today. We we will touch base with her tomorrow and if okay but Laila will transition tomorrow and discharge. If she needs Coumadin then she needs
bridging with IV heparin.
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
-Consulted Nephrology
-Continue Bumex for volume management
-Continue mycophenolate and prednisone
- CW PD
Benign Hypertension
under goal now
-Continue Coreg , Valsartan but increased dose of Nifedipine
Code Status: Full Code
Discussed with RN
Discussed with team and discussed with nephrology
Portions of this chart may have been created with voice recognition software. Occasional wrong word or 'sound alike' substitutions may have occurred due to the inherent limitations of voice recognition software.
Anticipated Discharge: 24 - 48 hours
Subjective/Interval History
-
Date of Service: May 13, 2025
Some abdominal cramping but no nausea vomiting. Tolerating diet.
She did not sleep till late and she was sleeping when I entered the room. Denies any headache currently. She she had some headache yesterday with light sensitivity.
No chest pain or shortness of breath.
Objective Data
-
Labs:
Laboratory Results
05/12/25 05/13/25 05/13/25
23:04 05:33 12:00
WBC 6.1
Hgb 10.3 L
Hct 32.5 L
Plt Count 372
APTT 79.0 H 63.8 H Pending
Sodium 133 L
Potassium 4.0
Chloride 101
Carbon Dioxide 21 L
BUN 49 H
Creatinine 8.2 H*
Glucose 79
Calcium 8.0 L
Vital Signs:
Vital Signs
Temp Pulse Resp BP Pulse Ox
98.1 F 101 20 118/98 98
05/13/25 05:54 05/13/25 05:54 05/13/25 05:54 05/13/25 05:54 05/13/25 05:54
I&O
05/12/25 05/13/25 05/14/25
06:59 06:59 06:59
Intake Total 620 / 620
Output Total 350 / 350 1100 / 1100
Balance -350 / -350 -480 / -480
Physical Exam
-
General: No Apparent Distress
Respiratory: Clear to Auscultation and Non Labored Respirations; Negative Accessory Resp Muscle Use
Cardiac: Regular Rhythm and S1/S2; Negative Tachycardic
GI: Soft and Nontender
Neuro: AO x 3
Psych: Calm
Data Reviewed
-
Labs: Labs Reviewed by me
[2025-05-13 09:42] VITALS: BP 118/96
[2025-05-13] MEDS: TYLENOL 1000 MG PO ×2 (10:02→21:38)
[2025-05-13] MEDS: PROCARDIA XL (EXTENDED RELEASE) 60 MG PO (10:09)
[2025-05-13] MEDS: COREG 6.25 MG PO ×2 (10:10→21:18)
[2025-05-13] MEDS: NEPHROCAP 1 CAPSULE PO (10:10)
[2025-05-13] MEDS: MYFORTIC DELAYED REL. 360 MG PO ×2 (10:10→21:19)
[2025-05-13] MEDS: BUMEX 2 MG PO ×3 (10:10→21:19)
[2025-05-13] MEDS: DELTASONE 5 MG PO (10:11)
[2025-05-13] MEDS: KCL 10 MEQ PO (10:11)
--- NOTE | 2025-05-13 14:42 | W.PN.NEURO.1 ---
Today's Communication / Plan
-
communicated to primary team via tiger connect
Neuro Assessment/Plan
Assessment
This is a 40-year-old right-handed female w/ a PMH of lupus nephritis c/b ESRD on PD and HTN who presented to the hospital on 05/07/25 with report of dyspnea, cough, and persistent diarrhea and found to left upper lobe PE. She's continued to have a
headache this admission. Meningitis and CVST have been ruled out. Her headache has migraine qualities, although she doesn't have a typical migraine history. Treatment options are limited due to ESRD. She is already on Tylenol and trying
non-pharmacologic treatments like cold packs. She can try Reglan IV 5mg now and can take reglan 5mg every 6 hours prn for migraines. She is already on prednisone at this time preventing the use of a steroid taper to break the migraine cycle.
Plan
-IV reglan 5mg once
-can use relgan 5mg every 6 hours prn for headache
Subjective/Objective
Subjective Data
Date of Service: May 13, 2025
She is complaining of a headache. The headache is 4/10 pain. It is pulsating pressure in the back of her head. She feels light sensitivity and nausea. She's had this headache since [place]. It is improved since presenting, but still present.
The pain is worse if she rolls from side to side but doesn't change when she sits up or lie down. She doesn't typically get migraines, but she does get headaches when her blood pressure is too high. She has been taking tylenol and using cold packs
on the back of her neck with minimal relief. She has received compazine and benadryl this admission, which helped. She had an MRI/MRV this admission that was negative for acute intracranial pathology and negative for CVST. LP negative for meningitis
this admission.
Objective Data
Vital Signs
Temp Pulse Resp BP Pulse Ox
36.4 C 94 16 118/96 100
05/13/25 11:26 05/13/25 09:42 05/13/25 09:42 05/13/25 09:42 05/13/25 14:28
Lab Results
05/13/25 05:33
05/13/25 05:33
PT 13.4 Sec (11.4-14.6) 05/11/25 05:04
INR 1.01 05/11/25 05:04
APTT 63.8 Sec (23.4-35.0) H 05/13/25 05:33
Sodium 133 mmol/L (135-145) L 05/13/25 05:33
Potassium 4.0 mmol/L (3.5-5.1) 05/13/25 05:33
BUN 49 mg/dl (7-17) H 05/13/25 05:33
Glucose 79 mg/dl (70-99) 05/13/25 05:33
Calcium 8.0 mg/dl (8.4-10.2) L 05/13/25 05:33
Patient Allergies
infliximab (From Remicade) Allergy (Verified 05/07/25 18:00)
Anaphylaxis
Penicillins Allergy (Verified 05/07/25 18:00)
Hives
Physical Exam
-
General: Well Developed, Well Nourished and No Apparent Distress
Eyes: Unremarkable
HEENT: Normocephalic
Respiratory: Clear to Auscultation
Cardiac: Regular Rhythm
GI: Normal Bowel Sounds
Psych: Unremarkable
Extended Neurological Exam
Mood & Affect: Mood Unremarkable and Affect Unremarkable
Attention Span & Concentration: Awake, Alert and Interactive
Memory: Able to Recall (2/3 words with delayed recall)
Tremor: Hand Tremor Absent
Involuntary Movement: None
Speech: Quality Unremarkable, Quantity Unremarkable and Rate of Production Unremarkable
Cranial Nerve II: Left Eye: Pupillary Reactivity Unremarkable and Visual Moss Intact
Cranial Nerve II: Right Eye: Pupillary Reactivity Unremarkable and Visual Moss Intact
Cranial Nerves III, IV, : Extraocular Movement: Extraocular Movement Full in all Directions and No Ptosis
Cranial Nerve V: Facial Sensation: Intact to Light Touch
Cranial Nerve VII: Facial Symmetry: Normal Facial Symmetry
Cranial Nerve VIII: Hearing: Unremarkable Hearing to Normal Conversational Volume
Cranial Nerves IX, X: Palate Movement: Palate Elevation Symmetric
Cranial Nerve XI: Shoulder Shrug: Unremarkable
Cranial Nerve XII: Tongue Protusion: Midline
Muscle Strength, Overall: Full Throughout
Muscle Bulk & Tone: Bulk Unremarkable and Tone Unremarkable
Deep Tendon Reflexes: Unremarkable Throughout
Touch Sensation: Unremarkable
Coordination: [id number]-cvelli Testing Unremarkable
Data Reviewed
-
MRI Head: Image Reviewed (No acute stroke. )
MRA Head: Image Reviewed (No LVO, NO CVST)
[2025-05-13 14:44] LABS: APTT > 200 Sec (23.4-35.0)
[2025-05-13] MEDS: REGLAN 5 MG IV (16:42)
[2025-05-13] MEDS: FLUSH (NSS) 1 FLUSH IV (16:43)
[2025-05-13 20:00] VITALS: BP 113/78
[2025-05-13] MEDS: DIOVAN 80 MG PO (21:18)
--- NOTE | 2025-05-13 22:59 | PTCARENOTE ---
Assumed care for patient overnight. Pt aaox3, very pleasant. PD done as per ordered to hold from 7p-7a. Pt to be dry overnight. During drain pt experiencing cramping, PRN Tylenol administered. HINOJOSA present but mild, Reglan administered earlier, pt
states it made her very drowsy. Photosensitivity slightly improved. Heparin gtt cont. PD site cleansed and redressed, site is C/D/I. Pt able to make needs known, call jimenez within reach.
[2025-05-13 23:29] VITALS: BP 116/80
[2025-05-13 23:51] LABS: APTT 101.0 Sec (23.4-35.0)
[2025-05-14 06:00] VITALS: BMI 18.2
[2025-05-14 06:18] LABS: Hematocrit 32.0 % (37.0-47.0); Hemoglobin 10.0 g/dL (12.0-16.0); Mean Corp Hgb Conc. 31.3 g/dL (33.0-37.0); Mean Corpuscular Volume 96.1 fL (81.0-99.0); Platelet Count 326 10^3/uL (130-400); Red Cell Dist. Width 13.4 % (11.5-14.5)
[2025-05-14 06:24] LABS: APTT 89.0 Sec (23.4-35.0)
[2025-05-14 08:04] VITALS: BP 113/82
[2025-05-14] MEDS: BUMEX 2 MG PO ×3 (08:08→21:34)
[2025-05-14] MEDS: MYFORTIC DELAYED REL. 360 MG PO ×2 (08:08→20:22)
[2025-05-14] MEDS: KCL 10 MEQ PO (08:09)
[2025-05-14] MEDS: PROCARDIA XL (EXTENDED RELEASE) 60 MG PO (08:09)
[2025-05-14] MEDS: NEPHROCAP 1 CAPSULE PO (08:09)
[2025-05-14] MEDS: COREG 6.25 MG PO ×2 (08:09→20:22)
[2025-05-14] MEDS: TYLENOL 1000 MG PO ×2 (08:09→20:22)
[2025-05-14] MEDS: DELTASONE 5 MG PO (08:09)
--- NOTE | 2025-05-14 09:19 | W.PN.ONC2 ---
Today's Communication / Plan
-
discharge planning
OP follow up with lens coating technician Dr. Ye Kim, TR[facility]
Impression
Impression
intermediate probability EMIGDIO PE on VQ -renal function precluded CTA -Hx VTE -Cardiolipin and B2 glycoprotein negative
lupus nephritis on MMF & prednisone c/b ESRD- on peritoneal dialysis, plans for kidney transplant
pansinusitis
headache-CSF culture NTD, meningitis panel negative -MRI/MRVnegative for acute intracranial pathology and negative for CVST
normocytic anemia -Hgb 10g/dL
Plan
Plan
on heparin gtt -primary service is checking with transplant team if DOAC vs warfarin is preferred
neurology management of Headaches
OP follow up with renal transplant
Subjective/Objective
Subjective
afebrile, no hypoxia, no hypotension
Vital Signs:
Vital Signs
Temp Pulse Resp BP Pulse Ox
97.8 F 84 14 113/82 98
05/14/25 08:04 05/14/25 08:04 05/14/25 08:04 05/14/25 08:04 05/14/25 08:18
Lab Results:
Laboratory Data
WBC 8.1 10^3/uL (4.8-10.8) 05/14/25 05:43
Hgb 10.0 g/dL (12.0-16.0) L 05/14/25 05:43
Plt Count 326 10^3/uL (130-400) 05/14/25 05:43
PT 13.4 Sec (11.4-14.6) 05/11/25 05:04
INR 1.01 05/11/25 05:04
APTT 89.0 Sec (23.4-35.0) H 05/14/25 05:43
eGFR 5.88 05/13/25 05:33
Physical Exam
HEENT: No Jaundice
Pulmonary: Other (unlabored)
Extremities: Pulses Present
--- NOTE | 2025-05-14 10:40 | W.PN.NEPH.PH ---
Today's Communication / Plan
-
PD
Assessment/Plan
-
Impression:
ESRD (Lupus nephritis)/PD
Presentation with shortness of breath dyspnea on exertion
Hypertension
History of PE (patient had this last August and was on Eliquis for 3 months)
Anemia
Metabolic acidosis
Plan:
PD continues 2L q4hr exchange, all 1.5% during day
lytes balanced
flow sheets noted
c/o sig pain with drain seem chronic(typically on tidal in cycler at home), PD fluid with out infection
PD from 7am and 7pm and dry during night continues
Maintains on prednisone and mycophenolate in setting of lupus nephritis
question if lovenox is feasible in this situation. If ok from transplant team, dose should be 1mg/kg/d subq
-
-
Date of Service: May 14, 2025
CC / HPI / ROS
-
Chief Complaint:
ESRD on PD
History of Present Illness:
On PD for ESRD
Hgb stable 10
BP stable
c/o abdominal cramping
Review of Systems:
c/o abd pain with PD seem chronic
no fever
Labs
-
Labs:
WBC 8.1 10^3/uL (4.8-10.8) 05/14/25 05:43
RBC 3.33 10^6/uL (4.20-5.40) L 05/14/25 05:43
Hgb 10.0 g/dL (12.0-16.0) L 05/14/25 05:43
Hct 32.0 % (37.0-47.0) L 05/14/25 05:43
Plt Count 326 10^3/uL (130-400) 05/14/25 05:43
eGFR 5.88 05/13/25 05:33
Albumin 3.8 g/dl (3.5-5.0) 05/07/25 18:09
Physical Exam
-
Vital Signs:
Vital Signs
Temp Pulse Resp BP Pulse Ox
97.8 F 84 14 113/82 98
05/14/25 08:04 05/14/25 08:04 05/14/25 08:04 05/14/25 08:04 05/14/25 08:18
Cardiovascular:: Regular rate and rhythm
Respiratory:: Bilateral: Coarse
Lung Excursion:: Normal
Abdomen:: Nontender and Soft
Bowel Sounds:: Normal
Extremity Edema:: None: Bilateral:
--- NOTE | 2025-05-14 12:34 | W.PN.NEURO.1 ---
Today's Communication / Plan
-
replace Reglan 5mg every 6 hours prn for headache with Prochlorperazine, Valproic acid 1000 mg, Diphenhydramine 50 mg
Neuro Assessment/Plan
Assessment
This is a 40-year-old right-handed female w/ a PMH of lupus nephritis c/b ESRD on PD and HTN who presented to the hospital on 05/07/25 with report of dyspnea, cough, and persistent diarrhea and found to left upper lobe PE. She's continued to have a
headache this admission. Meningitis and CVST have been ruled out. Her headache has migraine qualities, although she doesn't have a typical migraine history. Treatment options are limited due to ESRD. She is already on Tylenol and trying
non-pharmacologic treatments like cold packs. She can try Reglan IV 5mg now and can take reglan 5mg every 6 hours prn for migraines. She is already on prednisone at this time preventing the use of a steroid taper to break the migraine cycle.
Plan
replace Reglan 5mg every 6 hours prn for headache with Prochlorperazine, Valproic acid 1000 mg, Diphenhydramine 50 mg
Will follow as needed
Subjective/Objective
Subjective Data
Date of Service: May 14, 2025
Objective Data
Vital Signs
Temp Pulse Resp BP Pulse Ox
36.5 C 84 14 113/82 99
05/14/25 12:21 05/14/25 08:04 05/14/25 08:04 05/14/25 08:04 05/14/25 11:58
Lab Results
05/14/25 05:43
PT 13.4 Sec (11.4-14.6) 05/11/25 05:04
INR 1.01 05/11/25 05:04
APTT 89.0 Sec (23.4-35.0) H 05/14/25 05:43
Sodium 133 mmol/L (135-145) L 05/13/25 05:33
Potassium 4.0 mmol/L (3.5-5.1) 05/13/25 05:33
BUN 49 mg/dl (7-17) H 05/13/25 05:33
Glucose 79 mg/dl (70-99) 05/13/25 05:33
Calcium 8.0 mg/dl (8.4-10.2) L 05/13/25 05:33
Patient Allergies
infliximab (From Remicade) Allergy (Verified 05/07/25 18:00)
Anaphylaxis
Penicillins Allergy (Verified 05/07/25 18:00)
Hives
Data Reviewed
-
Labs: Report Reviewed
Reviewed with: Nurse
Old Records: Summarized
Past History
Past History
ED Past Medical History: HTN, Renal failure (Peritoneal dialysis), Other (Lupus, PE, DVT 2012) and Other
ED Past Surgical History: Other (PD catheter placement)
Social History
Tobacco: Non-smoker
Alcohol: None
Personal:
Living: with family
Family History
Family History: Other (reviewed and non-contributory)
Medications
-
Medications:
Generic Name Dose Route Start Last Admin
Trade Name Freq PRN Reason Stop Dose Admin
Acetaminophen 1,000 mg 05/09/25 15:42 05/14/25 08:09
Acetaminophen 500 Mg Tablet PO 06/06/25 15:41 1,000 mg
Q6HPRN PRN Administration
mild pain /fever >100.4
Bumetanide 2 mg 05/08/25 08:00 05/14/25 08:08
Bumetanide 1 Mg Tablet PO 06/05/25 07:59 2 mg
TID JETT Administration
Carvedilol 6.25 mg 05/08/25 08:00 05/14/25 08:09
Carvedilol 6.25 Mg Tablet PO 06/05/25 07:59 6.25 mg
BID JETT Administration
Docusate Sodium 100 mg 05/08/25 02:17 05/13/25 21:38
Docusate Sodium 100 Mg Capsule PO 06/05/25 02:16 100 mg
BIDPRN PRN Administration
constipation
Heparin Sodium 4,500 units 05/08/25 02:00 05/13/25 06:08
Heparin 80 Units/Kg Iv Rebolus IV 06/05/25 01:59 4,500 units
PRN PRN Administration
PTT < OR = 64 seconds
Heparin Sodium 2,200 units 05/08/25 02:00 05/12/25 01:19
Heparin 40 Units/Kg Iv Rebolus IV 06/05/25 01:59 2,200 units
PRN PRN Administration
PTT = 64.1 to 72.9 seconds
Hydralazine HCl 5 mg 05/08/25 16:21 05/09/25 18:17
Hydralazine 20 Mg/Ml Vial IV 06/05/25 16:20 5 mg
Q6HPRN PRN Administration
sbp>160 or dbp>100
Heparin Sodium 25,000 units in 250 mls @ 0 mls/hr 05/10/25 01:45 05/13/25 05:19
Heparin 78864 Units/250 Ml IV 250 mls
PER PROTOCOL JETT Administration
Protocol
Per Protocol
Valproate Sodium 1,000 mg/ 60 mls @ 60 mls/hr 05/14/25 12:30
Sodium Chloride IV 05/14/25 13:29
NOW STA
Mycophenolate Sodium 360 mg 05/08/25 08:00 05/14/25 08:08
Mycophenolic Acid [address] Tablet (Non Form) PO 360 mg
BID JETT Administration
Nifedipine 60 mg 05/09/25 08:00 05/14/25 08:09
Nifedipine 60 Mg Extended Release Tablet PO 06/06/25 07:59 60 mg
DAILY JETT Administration
Polyethylene Glycol 17 grams 05/09/25 16:19 05/12/25 02:47
Polyethylene Glycol Powder 17 Grams Packet PO 06/06/25 16:18 17 grams
DAILYPRN PRN Administration
constipation, use second
Potassium Chloride 10 meq 05/08/25 08:00 05/14/25 08:09
Potassium Chloride 10 Meq Extended Release Tablet PO 06/05/25 07:59 10 meq
DAILY JETT Administration
Prednisone 5 mg 05/08/25 08:00 05/14/25 08:09
Prednisone 5 Mg Tablet PO 06/05/25 07:59 5 mg
DAILY JETT Administration
Prochlorperazine Edisylate 10 mg 05/14/25 12:30
Prochlorperazine 10 Mg/2 Ml Vial IV 06/11/25 12:29
Q6HPRN PRN
headache
Sodium Chloride 0 flush 05/08/25 03:00 05/13/25 16:43
Sodium Chloride 0.9% (Flush) Syringe IV 06/05/25 02:59 1 flush
PER PROTOCOL JETT Administration
Valsartan 80 mg 05/08/25 22:00 05/13/25 21:18
Valsartan 80 Mg Tablet PO 06/05/25 21:59 80 mg
HS JETT Administration
Vitamin B Complex/Vit C/Folic Acid 1 capsule 05/08/25 08:00 05/14/25 08:09
Renal Cap (Nephrocap) Capsule PO 06/05/25 07:59 1 capsule
DAILY JETT Administration
[2025-05-14 12:43] LABS: Blood Urea Nitrogen 51 mg/dl (7-17); Calcium 8.2 mg/dl (8.4-10.2); Carbon Dioxide 20 mmol/L (22-30); Chloride 100 mmol/L (98-107); Estimated Creatinine Clearance 8 ml/min; Glucose 91 mg/dl (70-99); Potassium 4.2 mmol/L (3.5-5.1); Sodium 132 mmol/L (135-145); eGFR 6.35
[2025-05-14 12:52] LABS: Ferritin 511.0 ng/ml (6.24-137)
--- NOTE | 2025-05-14 12:58 | W.PN.HOSP.TC ---
Today's Communication/Plan
-
Monitor vitals
See plan
Discussed with transplant nephrology coordinator Jatin Oconnor from [facility], okay to use Eliquis
Start Eliquis tonight and DC IV heparin; discussed with RN
Assessment / Plan
Assessment / Plan
Constellation of what looks like infectious symptoms
Fever, cough, shortness of breath, diarrhea, headache and neck stiffness
I doubt that the left upper lobe thrombus on VQ scan explains all her symptoms.
She is immunocompromised-on immunosuppressive agents for lupus
She in the past had a pneumonia diagnosis and her last chest CT showed improving tree-in-bud opacities in the lungs.
Aspirate from peritoneal dialysis shows no evidence of SBP.
Flu and COVID-negative.
Chest x-ray no obvious infiltrates
Patient was granulocytopenia with left shift on admission. Normalized.
Appreciate ID input.
Consulted neurology as well to rule out any intracranial process.
MRI of the brain and MRV of the head shows no evidence of acute abnormality.
LP with no suggestion for meningitis
cw Trial of antimigraine's medication for HINOJOSA if needed
Clinically improved
No plan for further infectious disease evaluation as patient is clinically improved
Shortness of Breath / Dyspnea on Exertion
VQ scan concerning for left upper lobe PE with mismatch.
History of PE August 2024 status post 3 months of DOAC
-Patient is unable to have CT scan due to ESRD on PD
- Echo shows normal EF and no evidence of pulmonary hypertension and so doubt CTEPH
- Lung Perfusion Scan from August with medium sized wedge shaped perfusion defect extending to the periphery in the left upper lobe
-on room air
- Unclear if the left upper lobe thrombus is chronic, inadequately treated, recurrent
Discussed with patient transplant nephrology coordinator Jatin oconnor; there team is ok with using eliquis. Patient is currently not on any emergent need for transplant and if they need to switch at that time then they will do so.
- Antiphospholipid antibody testing pending
- Pulmonary and hematology follow
Patient tells me that she is on the transplant list and preferable anticoagulation is Coumadin as she she could immediately get reversed when the organ is available then Laila.
Try to reach her patient day coordinator at [facility].
Gracia Huang is her physician
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
-Consulted Nephrology
-Continue Bumex for volume management
-Continue mycophenolate and prednisone
- CW PD
Hyponatremia
Managed with PD
Benign Hypertension
under goal now
-Continue Coreg , Valsartan but increased dose of Nifedipine
Code Status: Full Code
Discussed with RN
I spent a total of 52 minutes with the patient or on the floor. More than 50% of this time involved counseling and coordination of care.
General: No Apparent Distress
Respiratory: Clear to Auscultation and Non Labored Respirations; Negative Accessory Resp Muscle Use
Cardiac: Regular Rhythm and S1/S2; Negative Tachycardic
GI: Soft and Nontender
Neuro: AO x 3
Psych: Calm
Anticipated Discharge: Within 24 hours
Subjective/Interval History
-
Date of Service: May 14, 2025
Still has headache
Objective Data
-
Labs:
Laboratory Results
05/14/25 05/14/25
05:43 11:41
WBC 8.1
Hgb 10.0 L
Hct 32.0 L
Plt Count 326
APTT 89.0 H
Sodium 132 L
Potassium 4.2
Chloride 100
Carbon Dioxide 20 L
BUN 51 H
Creatinine 7.7 H*
Glucose 91
Calcium 8.2 L
Vital Signs:
Vital Signs
Temp Pulse Resp BP Pulse Ox
97.7 F 84 14 113/82 99
05/14/25 12:21 05/14/25 08:04 05/14/25 08:04 05/14/25 08:04 05/14/25 11:58
I&O
05/13/25 05/14/25 05/15/25
06:59 06:59 06:59
Intake Total 620 / 620 2525 / 2525
Output Total 1100 / 1100 700 / 700
Balance -480 / -480 1825 / 1825
[2025-05-14] MEDS: BENADRYL 50 MG PO (13:16)
[2025-05-14] MEDS: DEPAKENE 1000 MG PO (13:16)
[2025-05-14] MEDS: COMPAZINE 10 MG PO (13:16)
[2025-05-14 13:24] LABS: Folate > 20.0 ng/ml (2.76-20); Vitamin B12 804 pg/ml (239-931)
[2025-05-14 16:57] VITALS: BP 110/82
--- NOTE | 2025-05-14 17:32 | CM ---
F/U: Patient getting off Heparin tonight and on Eliquis. Will confirm with Hospitalist if we need thornton check. PLAN: Anticipate Home No Needs.
--- NOTE | 2025-05-14 17:47 | PTCARENOTE ---
Pt presents as assessed. Aox3, pleasant. Intermittent migraine headaches noted. PD and care as documented. Call jimenez within reach.
[2025-05-14 20:21] VITALS: BP 120/96
[2025-05-14] MEDS: COLACE 100 MG PO (20:22)
[2025-05-14] MEDS: ELIQUIS 10 MG PO (20:22)
[2025-05-14 21:34] VITALS: BP 114/78
[2025-05-14] MEDS: DIOVAN 80 MG PO (21:34)
[2025-05-14 22:52] VITALS: BP 130/97
--- NOTE | 2025-05-14 23:36 | PTCARENOTE ---
assumed care of patient. pt is AAOx3, able to make needs known. VSS. m/s level of care. at bedside. PD cath site intact. pt drained at 2140 for 2300ml, documented per JUL. pt reports some cramps during draining. medicated with tylenol PRN.
PD to be resumed at 0700 per order. heparin gtt turned off at 2000 per order. medicated with first done of PO eliquis. care ongoing.
[2025-05-15 06:31] LABS: Hematocrit 30.9 % (37.0-47.0); Hemoglobin 9.8 g/dL (12.0-16.0); Mean Corp Hgb Conc. 31.7 g/dL (33.0-37.0); Mean Corpuscular Volume 92.2 fL (81.0-99.0); Platelet Count 329 10^3/uL (130-400); Red Cell Dist. Width 13.3 % (11.5-14.5)
[2025-05-15 07:05] LABS: Blood Urea Nitrogen 53 mg/dl (7-17); Calcium 7.8 mg/dl (8.4-10.2); Carbon Dioxide 22 mmol/L (22-30); Chloride 99 mmol/L (98-107); Estimated Creatinine Clearance 8 ml/min; Glucose 76 mg/dl (70-99); Potassium 4.0 mmol/L (3.5-5.1); Sodium 132 mmol/L (135-145); eGFR 6.35
[2025-05-15] MEDS: BUMEX 2 MG PO (07:43)
[2025-05-15] MEDS: MYFORTIC DELAYED REL. 360 MG PO (07:43)
[2025-05-15] MEDS: PROCARDIA XL (EXTENDED RELEASE) 60 MG PO (07:43)
[2025-05-15] MEDS: COREG 6.25 MG PO (07:43)
[2025-05-15] MEDS: TYLENOL 1000 MG PO (07:43)
[2025-05-15] MEDS: NEPHROCAP 1 CAPSULE PO (07:43)
[2025-05-15] MEDS: KCL 10 MEQ PO (07:44)
[2025-05-15] MEDS: DELTASONE 5 MG PO (07:44)
[2025-05-15] MEDS: ELIQUIS 10 MG PO (07:44)
[2025-05-15 08:42] VITALS: BP 109/77
[2025-05-15 10:01] LABS: Lyme Disease DNA by PCR Not Detected; Lyme Source CSF
--- NOTE | 2025-05-15 10:01 | W.PN.NEPH.PH ---
Today's Communication / Plan
-
PD
Assessment/Plan
-
Impression:
ESRD (Lupus nephritis)/PD
Presentation with shortness of breath dyspnea on exertion
Hypertension
History of PE (patient had this last August and was on Eliquis for 3 months)
Anemia
Metabolic acidosis
Plan:
PD continues 2L q4hr exchange, all 1.5% during day
lytes balanced
flow sheets noted
PD from 7am and 7pm and dry during night continues
Maintains on prednisone and mycophenolate in setting of lupus nephritis
-
-
Date of Service: May 15, 2025
CC / HPI / ROS
-
Chief Complaint:
ESRD on PD
History of Present Illness:
On PD for ESRD
Hgb stable 9.8
BP stable
on eliquis for PE
Review of Systems:
no CP
no fever
Labs
-
Labs:
WBC 6.4 10^3/uL (4.8-10.8) 05/15/25 05:54
RBC 3.35 10^6/uL (4.20-5.40) L 05/15/25 05:54
Hgb 9.8 g/dL (12.0-16.0) L 05/15/25 05:54
Hct 30.9 % (37.0-47.0) L 05/15/25 05:54
Plt Count 329 10^3/uL (130-400) 05/15/25 05:54
Sodium 132 mmol/L (135-145) L 05/15/25 05:54
Potassium 4.0 mmol/L (3.5-5.1) 05/15/25 05:54
Chloride 99 mmol/L (98-107) 05/15/25 05:54
Carbon Dioxide 22 mmol/L (22-30) 05/15/25 05:54
BUN 53 mg/dl (7-17) H 05/15/25 05:54
Creatinine 7.7 mg/dL (0.6-1.0) H* 05/15/25 05:54
eGFR 6.35 05/15/25 05:54
Glucose 76 mg/dl (70-99) 05/15/25 05:54
Calcium 7.8 mg/dl (8.4-10.2) L 05/15/25 05:54
Albumin 3.8 g/dl (3.5-5.0) 05/07/25 18:09
Physical Exam
-
Vital Signs:
Vital Signs
Temp Pulse Resp BP Pulse Ox
97.9 F 94 18 109/77 100
05/15/25 08:42 05/15/25 08:42 05/15/25 08:42 05/15/25 08:42 05/15/25 08:42
Cardiovascular:: Regular rate and rhythm
Respiratory:: Bilateral: CTA
Lung Excursion:: Normal
Abdomen:: Nontender
Bowel Sounds:: Normal
Extremity Edema:: None: Bilateral:
--- NOTE | 2025-05-15 10:47 | PN.CDI ---
CDI
- -
CDI:
Physician Documentation Request
Admit Date: 05/07/25 22:51
Dear Doctor,
Patient admitted for PE.
Please review the following and provide your response in the progress notes.
Clinical Indicators:
Height: 5' 6'
Weight: 112 lbs
BMI: 18.2
05/14 [employer]: 'Diagnosis-Problem: Unintended weight loss...Current BW: (05/14) 112 lbs 14.027 oz BMI: 18.2(underweight); (05/10) 113 lbs 5.082 oz BMI: 18.3 (underweight)'
If possible, please provide an associated diagnosis related to the abnormal BMI, such as:
Cachectic
Underweight
Unintended weight loss
BMI is not significant
Other
BMI < or = to 19.9
Underweight
Weight Loss
Cachectic
Anorexia
Use of terms such as suspected, likely, concern for, or probable (associated with a specific diagnosis that is being evaluated, monitored, or treated as if it exists) are acceptable and can be coded in the inpatient setting, when documented at the
time of discharge.
Thank you,
Elen Hoffman RN, BSN
CDI Specialist
Available via [place] text
Please use your independent medical judgment in providing your response.
--- NOTE | 2025-05-15 11:25 | W.PN.NEURO.1 ---
Today's Communication / Plan
-
replaced Reglan 5mg every 6 hours prn for headache with Prochlorperazine as needed, single dose of valproic acid 1000 mg, single dose of diphenhydramine 50 mg
Add amitriptyline 10 mg at bedtime
Neuro Assessment/Plan
Assessment
This is a 40-year-old right-handed female w/ a PMH of lupus nephritis c/b ESRD on PD and HTN who presented to the hospital on 05/07/25 with report of dyspnea, cough, and persistent diarrhea and found to left upper lobe PE. She's continued to have a
headache this admission. Meningitis and CVST have been ruled out. Her headache has migraine qualities, although she doesn't have a typical migraine history. Treatment options are limited due to ESRD. She is already on Tylenol and trying
non-pharmacologic treatments like cold packs. She can try Reglan IV 5mg now and can take reglan 5mg every 6 hours prn for migraines. She is already on prednisone at this time preventing the use of a steroid taper to break the migraine cycle.
Plan
replaced Reglan 5mg every 6 hours prn for headache with Prochlorperazine as needed, single dose of valproic acid 1000 mg, single dose of diphenhydramine 50 mg
Add amitriptyline 10 mg at bedtime
Will follow as outpatient
Subjective/Objective
Subjective Data
Date of Service: May 15, 2025
Objective Data
Vital Signs
Temp Pulse Resp BP Pulse Ox
36.6 C 94 18 109/77 100
05/15/25 08:42 05/15/25 08:42 05/15/25 08:42 05/15/25 08:42 05/15/25 08:42
Lab Results
05/15/25 05:54
05/15/25 05:54
PT 13.4 Sec (11.4-14.6) 05/11/25 05:04
INR 1.01 05/11/25 05:04
APTT 89.0 Sec (23.4-35.0) H 05/14/25 05:43
Sodium 132 mmol/L (135-145) L 05/15/25 05:54
Potassium 4.0 mmol/L (3.5-5.1) 05/15/25 05:54
BUN 53 mg/dl (7-17) H 05/15/25 05:54
Glucose 76 mg/dl (70-99) 05/15/25 05:54
Calcium 7.8 mg/dl (8.4-10.2) L 05/15/25 05:54
Vitamin B12 804 pg/ml (239-931) 05/14/25 11:41
Patient Allergies
infliximab (From Remicade) Allergy (Verified 05/07/25 18:00)
Anaphylaxis
Penicillins Allergy (Verified 05/07/25 18:00)
Hives
Data Reviewed
-
Labs: Report Reviewed
Reviewed with: Physician
Old Records: Summarized
--- NOTE | 2025-05-15 13:17 | W.PN.HOSP.TC ---
Today's Communication/Plan
-
Monitor vital signs see plan
On room air
Continue with Eliquis, tolerated well
Discussed with neurology, amitriptyline nightly for headache
Discharge today
Time of discharge 38 minutes
Assessment / Plan
Assessment / Plan
Constellation of what looks like infectious symptoms
Fever, cough, shortness of breath, diarrhea, headache and neck stiffness
I doubt that the left upper lobe thrombus on VQ scan explains all her symptoms.
She is immunocompromised-on immunosuppressive agents for lupus
She in the past had a pneumonia diagnosis and her last chest CT showed improving tree-in-bud opacities in the lungs.
Aspirate from peritoneal dialysis shows no evidence of SBP.
Flu and COVID-negative.
Chest x-ray no obvious infiltrates
Patient was granulocytopenia with left shift on admission. Normalized.
Appreciate ID input.
Consulted neurology as well to rule out any intracranial process.
MRI of the brain and MRV of the head shows no evidence of acute abnormality.
LP with no suggestion for meningitis
cw Trial of antimigraine's medication for HINOJOSA if needed. Discussed with neurology, amitriptyline nightly and they will follow-up with patient outpatient
Clinically improved
No plan for further infectious disease evaluation as patient is clinically improved
Shortness of Breath / Dyspnea on Exertion
VQ scan concerning for left upper lobe PE with mismatch.
History of PE August 2024 status post 3 months of DOAC
-Patient is unable to have CT scan due to ESRD on PD
- Echo shows normal EF and no evidence of pulmonary hypertension and so doubt CTEPH
- Lung Perfusion Scan from August with medium sized wedge shaped perfusion defect extending to the periphery in the left upper lobe
-on room air
- Unclear if the left upper lobe thrombus is chronic, inadequately treated, recurrent
Discussed with patient transplant nephrology coordinator Jatin nicholson; there team is ok with using eliquis. Patient is currently not on any emergent need for transplant and if they need to switch at that time then they will do so.
- Antiphospholipid antibody testing pending
- Pulmonary and hematology follow
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
-Consulted Nephrology
-Continue Bumex for volume management
-Continue mycophenolate and prednisone
- CW PD
Hyponatremia
Managed with PD
Benign Hypertension
under goal now
-Continue Coreg , Valsartan but increased dose of Nifedipine
Underweight
Monitor
Code Status: Full Code
Discussed with RN
General: No Apparent Distress
Respiratory: Clear to Auscultation and Non Labored Respirations; Negative Accessory Resp Muscle Use
Cardiac: Regular Rhythm and S1/S2; Negative Tachycardic
GI: Soft and Nontender
Neuro: AO x 3
Psych: Calm
Anticipated Discharge: Today
Subjective/Interval History
-
Date of Service: May 15, 2025
Denies pain
Objective Data
-
Labs:
Laboratory Results
05/15/25
05:54
WBC 6.4
Hgb 9.8 L
Hct 30.9 L
Plt Count 329
Sodium 132 L
Potassium 4.0
Chloride 99
Carbon Dioxide 22
BUN 53 H
Creatinine 7.7 H*
Glucose 76
Calcium 7.8 L
Vital Signs:
Vital Signs
Temp Pulse Resp BP Pulse Ox
97.9 F 94 18 109/77 100
05/15/25 08:42 05/15/25 08:42 05/15/25 08:42 05/15/25 08:42 05/15/25 08:42
I&O
05/14/25 05/15/25 05/16/25
06:59 06:59 06:59
Intake Total 2525 / 2525
Output Total 700 / 700 400 / 400
Balance 1825 / 1825 -400 / -400
--- NOTE | 2025-05-15 13:26 | W.DCSUMMARY ---
Discharge Summary
Discharge Data
Date of Admission: 05/07/25
Date of Discharge: 05/15/25
-
Pending Results: No
Hospital Course
40-year-old female with past medical history of PE, ESRD on peritoneal dialysis, hypertension came to the hospital for shortness of breath and dyspnea on exertion. VQ scan was consistent with possible pulmonary embolism. Patient was initially
started on IV heparin which was later transitioned to oral Eliquis. While patient was in the hospital she was also seen by nephrology for peritoneal dialysis. She also had migraine when she was in the hospital and was seen by neurology. On
discharge neurology recommended nighttime amitriptyline and to follow-up with them outpatient. Patient was on room air prior to discharge. I did discuss with patient transplant nephrology coordinator regarding Eliquis versus Coumadin and per their
recommendation Eliquis was started. Since her symptoms continue to improve, she was then discharged home with instructions to follow-up with all her physicians outpatient.
Discharge Plan
-
Patient Disposition: Home (Routine Discharge)
Discharge Diagnosis/Procedures: Shortness of breath suspect secondary to pulmonary embolism
ESRD on peritoneal dialysis
Hyponatremia
Migraine
Condition: Fair
Diet: Restrict fluids to 48 oz
Activity: As tolerated
Driving Restrictions: As prior to admission
Bathing Restrictions: None
Activity Restrictions/Additional Instructions:
Eliquis 10 mg twice daily through 05/21/2025 morning dose. Starting 05/21 evening dose decrease to 5 mg twice daily
Referrals:
Savi Marquez MD [Family Provider, Family Practice] - in less than 1 week
Erich Alaniz MD [Active, Neurology] - in one week
Simón Becerril DO [Active, Hematology / Oncology]
Monster Osman MD [Active, Pulmonary Medicine]
Prescriptions:
New
polyethylene glycol 3350 17 gram Powder In Packet
17 g PO DAILYPRN PRN (Reason: constipation, use second) Qty: 0 0RF
docusate sodium 100 mg Capsule
100 mg PO BIDPRN PRN (Reason: constipation) Qty: 0 0RF
acetaminophen [Tylenol Extra Strength] 500 mg Tablet
1,000 mg PO Q6HPRN PRN (Reason: mild pain /fever >100.4) Qty: 0 0RF
Eliquis DVT-PE Treat 30D Start 5 mg (74 tabs) tablets,dose pack
See Rx Instructions .ROUTE .COMPLEX Qty: 74 0RF
Rx Instructions:
orally per package directions
amitriptyline 10 mg Tablet
10 mg PO HS Qty: 30 0RF
nifedipine 60 mg Tablet Extended Release
60 mg PO DAILY Qty: 30 0RF
prochlorperazine maleate 10 mg Tablet
10 mg PO Q6HPRN PRN (Reason: headache) Qty: 30 0RF
Continued
carvedilol [Coreg] 6.25 mg Tablet
6.25 mg PO BID
bumetanide 2 mg Tablet
2 mg PO TID
prednisone 5 mg Tablet
5 mg PO DAILY
valsartan 80 mg Tablet
80 mg PO HS
potassium chloride 10 mEq Tablet Extended Release
10 meq PO DAILY
Opal-Greg 0.8 mg Tablet
1 tab PO DAILY
mycophenolate sodium 360 mg tablet,delayed release (DR/EC)
360 mg PO BID
cholecalciferol (vitamin D3) [Vitamin D3] 25 mcg (1,000 unit) Tablet
50 mcg PO DAILY
Discontinued
nifedipine [Nifediac CC] 90 mg Tablet Extended Release
90 mg PO DAILY
Patient Comments:
Pt states that her dose was decreased to 30 mg daily at this time due to symptomatic hypotension.
nifedipine [Nifediac CC] 30 mg Tablet Extended Release
30 mg PO QPM
Patient Comments:
hasnt taken HS dose since early march after seeing her [facility] Assistant Hairstylist. Just wanted her to take her morning dose of 90mg
nifedipine [Nifediac CC] 30 mg Tablet Extended Release
30 mg PO DAILY
Patient Comments:
Patient stated her dose was decreased from 90mg to 30mg on 04/21/25. She has taken 30mg daily since then
Discharge Orders:
Discharge Patient (As Directed); Ordered 05/15/25
Ordered By: Jono Haile
Discharge Date and Time
Discharge Date/Time: 05/15/25 15:31
Print Language: SPANISH
[2025-05-15 14:33] VITALS: BP 112/76
--- NOTE | 2025-05-15 14:47 | CM ---
F/U: NAYELI Mike was asked to check Eliquis, [facility] asked to resend the script, Hospitalist did, and the thornton is $0 copay. PLAN: DC No Needs.
== END 2025-05-15 15:31 | disposition home or self-care (01) | DRG 175 ==
LOC: IMU 22:51
PROVIDERS: Emergency Medicine; Internal Medicine; Nurse Practitioner Family; Physician Assistant Medical; Radiology Diagnostic Radiology; Registered Nurse; Registered Nurse Critical Care Medicine; ADMITTING PHYSICIAN Hospitalist; ATTENDING PHYSICIAN Internal Medicine; CONSULT PHYSICIAN Internal Medicine Critical Care Medicine; CONSULT PHYSICIAN Psychiatry & Neurology Neurology; EMERGENCY PHYSICIAN Emergency Medicine; FAMILY PHYSICIAN Family Medicine; OTHER PHYSICIAN Internal Medicine Hematology & Oncology; OTHER PHYSICIAN Internal Medicine Infectious Disease; OTHER PHYSICIAN Specialist
PROC: B01B1ZZ Fluoroscopy of Spinal Cord using Low Osmolar Contrast (ICD-10-PCS; 2025-05-07)
PROC: 009U3ZX Drainage of Spinal Canal, Percutaneous Approach, Diagnostic (ICD-10-PCS; 2025-05-07)
DX: I26.99 Other pulmonary embolism without acute cor pulmonale (principal); N18.6 End stage renal disease; D84.821 Immunodeficiency due to drugs; I12.0 Hypertensive chronic kidney disease with stage 5 chronic kidney disease or end stage renal disease; E87.20 Acidosis, unspecified; Z68.1 Body mass index [BMI] 19.9 or less, adult; Z79.624 Long term (current) use of inhibitors of nucleotide synthesis; Z86.711 Personal history of pulmonary embolism; Z99.2 Dependence on renal dialysis; Z88.0 Allergy status to penicillin; D64.9 Anemia, unspecified; M32.14 Glomerular disease in systemic lupus erythematosus; Z76.82 Awaiting organ transplant status; Z79.52 Long term (current) use of systemic steroids; Z79.899 Other long term (current) drug therapy; R63.6 Underweight; Z11.52 Encounter for screening for COVID-19
CPT/HCPCS: 62328; 70546; 70553; 71046; 78582; 80048; 80053; 82306; 82607; 82728; 82746; 82805; 82945; 84157; 84703; 85025; 85027; 85379; 85520; 85525; 85610; 85613; 85652; 85670; 85730; 86140; 86146; 86147; 86148; 87015; 87040; 87070; 87205; 87476; 87483; 87502; 87811; 89051; 93005; 93306; 93970; 99285; A9540; A9567; A9585